=== PATIENT | female | born 1970 | race Two or more races ===

== ENCOUNTER 2019-12-20 11:31 | Emergency (ER) | payer OTHER, SELFPAY ==
[2019-12-20 11:36] VITALS: BP 110/63; PULSE 80; RESP 18; TEMP 36.8; O2SAT 99; BMI 34.0
--- NOTE | 2019-12-20 12:23 | XR_ITS ---
EXAMINATION: XR ANKLE, LEFT CLINICAL INFORMATION: Pain, swelling, difficulty ambulating COMPARISON: None TECHNIQUE: AP, lateral, and mortise views of the left ankle. FINDINGS: There appears to be a small ossification adjacent to the anterior process of the calcaneus, as seen on the lateral projection. This could represent sequela of trauma, of indeterminate age. Otherwise, no other discrete acute fracture or dislocation is seen. Ankle mortise is maintained. Alignment is anatomic. Talar dome, base of the fifth metatarsal, appears intact. Moderate plantar calcaneus spur. Small to moderate Achilles tendon insertional spurring. IMPRESSION: 1. Small ossification adjacent to the anterior process of the calcaneus, could be related to sequela of trauma, of indeterminate age. Please clinically correlate. 2. Otherwise, no discrete acute fracture is seen.
--- NOTE | 2019-12-20 12:23 | ED.EXTPRO ---
HPI - Extremity Problem General Chief complaint: Extremity Injury, Lower Stated complaint: leg pain Time Seen by Provider: 12/20/19 12:21 Source: patient Mode of arrival: ambulatory Limitations: language barrier History of Present Illness HPI Narrative: 49 y/o female with history of COPD, chronic pain on chronic opiates, neuropathy presenting with 1 week of LLE pain - she reports it starts in her ankle and travels up to her hip. She denies injury. She states she has difficulty walking. She has been taking Percocet for pain. Related Data Previous Rx's Medication Instructions Recorded cyclobenzaprine 5 mg PO TID PRN #14 tab 12/20/19 tramadol 50 mg PO Q8H PRN #10 tab 12/20/19 Allergies Allergy/AdvReac Type Severity Reaction Status Date / Time No Known Allergies Allergy Verified 12/20/19 11:38 Review of Systems Review of Systems: Constitutional: No Fever, No Chills ENT/Mouth: No sore throat, No Rhinorrhea, No Swallowing Difficulty Eyes: No Eye Pain, No Swelling, No Redness Cardiovascular: No Chest Pain, No SOB, No Orthopnea, No Edema Respiratory: No Cough, No Sputum, No Wheezing, No dyspnea Gastrointestinal: No Nausea, No Vomiting, No Diarrhea, No abdominal Pain Genitourinary: No Dysuria, No Urinary Frequency, No Hematuria Musculoskeletal: + joint pain, + Myalgias Skin: No Skin Lesions, No rash Neuro: No Weakness, No Numbness, No Dizziness, No Headache Heme/Lymph: No Bruising, No Lymphadenopathy PMFSH Past Medical History Attestation statement: The following information was validated with the patient. Medical History Asthma COPD (chronic obstructive pulmonary disease) HTN (hypertension) Social History Social History Alcohol intake: unknown Smoking Status: Unknown if ever smoked Advance Directives: No Advance Directives Information Provided: Yes Physical Exam Vital Signs: Vital Signs: Vital Signs Temp Pulse Resp BP Pulse Ox 12/20/19 11:36 98.3 F 80 18 110/63 99 Body Mass Index 34.0 Appearance: Alert. Oriented X3. No acute distress. HEENT: normal inspection CVS: Normal heart rate and rhythm. Pulses normal. Respiratory: No respiratory distress. Skin: Skin warm and dry. Normal skin color. Normal skin turgor. No rashes. Extremities: left ankle swelling medially and laterally. limited ROM. knee normal exam. lateral right thigh tenderness along IT band. pelvis stable and no hip tenderness. Neuro: Oriented X 3. No motor deficit. No sensory deficit. Course Course Course Narrative: XR shows some bone spurs which could explain her tenderness. No acute fractures seen. Will place in BOLA wrap for comfort and give short course of pain medication, she has CKD and is unable to take NSAID. Encouraged to follow up with PCP. Discharge Plan Discharge Clinical Impression: Bone spur of foot Strain of left hip and thigh Qualifiers: Encounter type: initial encounter Qualified Code(s): S76.012A - Strain of muscle, fascia and tendon of left hip, initial encounter Patient Disposition: Home, Self-Care Instructions: Arthralgia (ED), Leg Pain (ED) Additional Instructions: Weight bearing as tolerated. Rest, Ice, elevate your left leg. Use BOLA wrap for comfort and stability. Take medications as prescribed. Follow up with your Primary Care Doctor this week for further management. Prescriptions: New tramadol 50 mg tablet 50 mg PO Q8H PRN (Reason: pain) Qty: 10 RF: 0 cyclobenzaprine 5 mg tablet 5 mg PO TID PRN (Reason: muscle spasm) Qty: 14 RF: 0
== END 2019-12-20 13:50 | disposition home or self-care (01) ==
PROVIDERS: Emergency Provider Emergency Medicine; PCP Internal Medicine
DX: M77.32 Calcaneal spur, left foot (principal); S76.012A Strain of muscle, fascia and tendon of left hip, initial encounter; X58.XXXA Exposure to other specified factors, initial encounter; I10 Essential (primary) hypertension; Y93.9 Activity, unspecified; Y92.9 Unspecified place or not applicable; Y99.9 Unspecified external cause status; Z79.891 Long term (current) use of opiate analgesic
CPT/HCPCS: 73610; 99283; 99284; 99285

== ENCOUNTER 2019-12-28 10:53 | Emergency (ER) | payer OTHER, SELFPAY ==
[2019-12-28 11:30] VITALS: BP 126/69; PULSE 82; RESP 16; TEMP 37.6; O2SAT 99; BMI 33.0
--- NOTE | 2019-12-28 11:49 | CT_ITS ---
EXAMINATION: CT BRAIN WITHOUT CONTRAST. CT CERVICAL SPINE WITHOUT CONTRAST. CLINICAL INFORMATION: COMPARISON: None TECHNIQUE: 5 millimeter thin axial and reformatted 2 mm thin sagittal and coronal images of brain were obtained. 3 mm thin axial and reformatted 2 millimeters thin sagittal and coronal images of cervical spine were obtained. DLP [id number] FINDINGS: BRAIN: There is no acute intra-axial, extra-axial bleed, masses or midline shift. No acute infarction in evolution. The lateral ventricles are symmetrical in size and configuration without enlargement. The roberts to white matter differences maintained. There is dystrophic calcification bilateral basal ganglia. Bone windows reveal no calvarial abnormality. There is no scalp soft tissue abnormality. Bilateral paranasal sinuses are aerated. Moderate mucoperiosteal thickening bilateral maxillary, bilateral posterior ethmoid and sphenoid sinuses. The mastoid air cells are well-aerated. No gross bony abnormality seen. CERVICAL SPINE: There is reversal cervical lordosis. The vertebral heights, alignment and disc heights are maintained. There is mild posterior spondylosis C5-C6 disc level. No visible acute fracture, dislocation or lytic process seen. The C1-C2 disc level has mild ventral and superior spurring. The craniovertebral junction is normal. There is a focal tubular hypoechoic density seen in the right C2 foramen, likely calcification in the right vertebral artery. The prevertebral and paravertebral soft tissues are normal. The lung apices are clear. IMPRESSION: No acute intracranial process seen. No acute intracranial process seen. No acute fracture or dislocation cervical spine. Chronic pansinusitis
--- NOTE | 2019-12-28 11:49 | XR_ITS ---
EXAMINATION: XR CHEST CLINICAL INFORMATION: Cough and SOB. COMPARISON: None TECHNIQUE: 2 views of the chest were obtained. FINDINGS: The lungs are well-expanded and clear. The heart size and pulmonary vascularity is normal. No gross bony abnormality seen. The soft tissues are normal. IMPRESSION: Unremarkable chest exam.
--- NOTE | 2019-12-28 12:26 | ED.GENADULT ---
HPI - General Adult General Chief complaint: General Medical Stated complaint: HEADACHE Time Seen by Provider: 12/28/19 11:09 Source: patient Mode of arrival: ambulatory Limitations: no limitations History of Present Illness HPI narrative: 49-year-old female with a past medical history of schwannoma of neck, renal insufficiency, hypertension, COPD, asthma, arthritis and carpal tunnel syndrome presenting to the ED with multiple complaints which include headache, neck pain, body aches, chills, nausea, productive cough and shortness of breath since Thursday. Denies any recent travel or sick contacts. Denies any other symptoms complaints or concerns at this time. Related Data Previous Rx's Medication Instructions Recorded cyclobenzaprine 5 mg PO TID PRN #14 tab 12/20/19 tramadol 50 mg PO Q8H PRN #10 tab 12/20/19 Allergies Allergy/AdvReac Type Severity Reaction Status Date / Time No Known Allergies Allergy Verified 12/20/19 11:38 Review of Systems Review of Systems: Constitutional : No Fever, + Fatigue, + Malaise ENT/Mouth : No Hearing loss, No Ear Pain, No Nasal Congestion, No Sinus Pain, No Hoarseness, No sore throat, No Rhinorrhea, No Swallowing Difficulty Eyes: No Eye Pain, No Swelling, No Redness, No Foreign Body, No Discharge, No Vision Changes Cardiovascular : No Chest Pain, No Dyspnea on Exertion, No Orthopnea, No Edema, No Palpitations Respiratory : + Cough, + sputum production, No Wheezing, Gastrointestinal : + Nausea, No Vomiting, No Diarrhea, No Constipation, No abdominal Pain, No Hematochezia, No Melena Genitourinary : No Dysuria, No Urinary Frequency, No Urgency, Musculoskeletal : + joint pain, + Myalgias, No Joint Swelling Skin : No Skin Lesions, No rash Neuro : No Weakness, No Numbness, No Paresthesias, No Loss of Consciousness, No Dizziness, + Headache Heme/Lymph: No Lymphadenopathy Yes all other systems are reviewed and are negative [facility] Past Medical History Attestation statement: The following information was validated with the patient. Medical History Arthritis Asthma Carpal tunnel syndrome COPD (chronic obstructive pulmonary disease) HTN (hypertension) Renal insufficiency Schwannoma of nerve of neck Surgical History History of sleeve gastrectomy Hx of tubal ligation Family History Family History Father No problems noted. Mother Diabetes Hypertension Son No problems noted. Son No problems noted. Brother No problems noted. Brother Diabetes Sister No problems noted. Social History Social History Alcohol intake: unknown Smoking Status: Never smoker Use of substances other than those prescribed or required for medical reasons: No Advance Directives: No Advance Directives Information Provided: No Physical Exam Vital Signs: Vital Signs: Vital Signs Temp Pulse Resp BP Pulse Ox 12/28/19 11:30 99.6 F 82 16 126/69 99 Body Mass Index 33.0 vital signs have been reviewed as normal and appeared to be correct. Blood pressure normal. Heart rate normal. Respiration rate normal. Temperature normal. Oxygen saturation normal. Appearance: Alert. Oriented X3. No acute distress. Head: Normal external exam. Normocephalic. Atraumatic. No Lemus signs noted. No raccoon eyes noted Eyes: PERRLA. EOMI. Conjunctiva and sclera normal. Eyelids normal. ENT: EAC normal. TM's Normal. Pharynx normal. Uvula midline. Moist mucous membranes. No trismus noted. No drooling noted. No muffled voice noted. Neck: Normal inspection. Neck supple. FROM. No adenopathy. Thyroid Normal. No meningeal signs. No neck mass noted. CVS: Normal heart rate and rhythm. Heart sound normal. No murmurs noted. Pulses normal throughout. Respiratory: No respiratory distress. Painless inspiration. Breath sounds normal. No wheezes/rales/rhonchi noted. Chest nontender. No accessory muscle usage noted or decreased air movement noted. Abdomen: Soft and nontender. Bowel sounds normal in all 4 quadrants. No distention noted. No organomegaly noted. No visible injury noted. Back: No CVA tenderness. Full range of motion noted. Skin: Skin warm and dry. Normal skin color. Normal skin turgor. No rashes/lesions/lacerations noted. Extremities: No lower extremity edema. Extremities exhibit normal range of motion. Extremities nontender. Neuro: Oriented X 3. No motor deficit. No sensory deficit. Reflexes normal. Course Course Course Narrative: 11:50AM 49-year-old female with a past medical history of schwannoma of neck, renal insufficiency, hypertension, COPD, asthma, arthritis and carpal tunnel syndrome presenting to the ED with multiple complaints which include headache, neck pain, body aches, chills, nausea, productive cough and shortness of breath since Thursday. Denies any recent travel or sick contacts. Denies any other symptoms complaints or concerns at this time. - Plan: Labs, CT scan of brain and cervical spine, CXR, Covid-19 swab. Provide symptomatic treatment with 4 mg of Zofran, 30 mg of Toradol, 10 mg of Decadron and 50 mg of Benadryl then re-evaluate. Reevaluation(s) Reevaluation #1: patient with mild anemia. BUN and creatinine and mildly elevated although similar and improved when compared to prior. patient also given a L of fluid due to her renal function although again this is chronic And patient was requesting IV fluids as well. All other labs are within normal limits. CT scan of brain within normal limits No acute processes noted. CT scan of cervical spine within normal limits no acute processes noted. chest x-ray within normal limits no acute processes noted. Will swab the patient for influenza and COVID at this time. Patient reports she feels much better after the Zofran, Toradol, Decadron and Benadryl. Will DC home with symptomatic treatment along with instructions to return if any new or worsening symptoms to follow-up with primary care provider. Patient understands agrees with this plan. Time: 14:55 Medical Decision Making Lab Data Result diagrams: 12/28/19 13:23 12/28/19 13:23 Labs: Lab Results 12/28/19 12/28/19 12/28/19 Range/Units 13:23 13:23 13:23 WBC 4.8 (4.8-10.8) X10*3/uL RBC 4.17 L (4.20-5.50) X10*6/uL Hgb 11.1 L (12.0-16.0) g/dl Hct 36.1 L (37-47) % MCV 86.6 (80-98) fL MCH 26.6 L (27.0-33.0) pg MCHC 30.7 L (31.0-35.0) g/dl RDW 14.0 (11.0-16.0) % Plt Count 194 (160-400) X10*3/uL MPV 10.6 (9.4-12.3) fL Immature Gran % (Auto) 0.6 H (0.0-0.4) % Neut % (Auto) 63.1 (45-73) % Lymph % (Auto) 16.7 L (20-40) % [place] % (Auto) 18.2 H (2-11) % Eos % (Auto) 0.8 (0-4) % Baso % (Auto) 0.6 (0-2) % Lymph # (Auto) 0.8 L (1.2-4.9) X10*3/uL [place] # (Auto) 0.9 (0.1-1.2) X10*3/uL Eos # (Auto) 0.0 (0.0-0.4) X10*3/uL Baso # (Auto) 0.0 (0.0-0.2) X10*3/uL Abs Immat Gran (auto) 0.03 (0.00-0.03) X10*3/uL Absolute Neuts (auto) 3.0 (2.0-8.3) X10*3/uL Absolute Nucleated RBC 0.000 (0.0-0.012) X10*3/uL Nucleated RBC % (auto) 0.0 (0.0-0.2) /100WBC Hold Purple Top SEE NOTE Sodium 139 (135-145) mmol/L Potassium 4.2 (3.3-5.1) mmol/l Chloride 103 (96-108) mmol/L Carbon Dioxide 27 (22-29) mmol/L Anion Gap 13 (12-20) BUN 28 H (9-16) mg/dL Creatinine 1.62 H (0.5-1.4) mg/dL Estim Creat Clear Calc 40.0 Estimated GFR 34 Random Glucose 82 (60-115) mg/dL Calcium 9.0 (8.4-10.2) mg/dL Magnesium 1.8 (1.6-2.6) mg/dL Total Bilirubin (0.0-1.0) mg/dL Direct Bilirubin (0.0-0.5) mg/dL AST (5-31) U/L ALT (0-31) U/L Alkaline Phosphatase (39-117) U/L Total Protein (6.5-8.0) g/dL Albumin (3.5-5.0) g/dL 12/28/19 Range/Units 13:23 WBC (4.8-10.8) X10*3/uL RBC (4.20-5.50) X10*6/uL Hgb (12.0-16.0) g/dl Hct (37-47) % MCV (80-98) fL MCH (27.0-33.0) pg MCHC (31.0-35.0) g/dl RDW (11.0-16.0) % Plt Count (160-400) X10*3/uL MPV (9.4-12.3) fL Immature Gran % (Auto) (0.0-0.4) % Neut % (Auto) (45-73) % Lymph % (Auto) (20-40) % [place] % (Auto) (2-11) % Eos % (Auto) (0-4) % Baso % (Auto) (0-2) % Lymph # (Auto) (1.2-4.9) X10*3/uL [place] # (Auto) (0.1-1.2) X10*3/uL Eos # (Auto) (0.0-0.4) X10*3/uL Baso # (Auto) (0.0-0.2) X10*3/uL Abs Immat Gran (auto) (0.00-0.03) X10*3/uL Absolute Neuts (auto) (2.0-8.3) X10*3/uL Absolute Nucleated RBC (0.0-0.012) X10*3/uL Nucleated RBC % (auto) (0.0-0.2) /100WBC Hold Purple Top Sodium (135-145) mmol/L Potassium (3.3-5.1) mmol/l Chloride (96-108) mmol/L Carbon Dioxide (22-29) mmol/L Anion Gap (12-20) BUN (9-16) mg/dL Creatinine (0.5-1.4) mg/dL Estim Creat Clear Calc Estimated GFR Random Glucose (60-115) mg/dL Calcium (8.4-10.2) mg/dL Magnesium (1.6-2.6) mg/dL Total Bilirubin 0.2 (0.0-1.0) mg/dL Direct Bilirubin < 0.2 (0.0-0.5) mg/dL AST 19 (5-31) U/L ALT 10 (0-31) U/L Alkaline Phosphatase 68 (39-117) U/L Total Protein 6.4 L (6.5-8.0) g/dL Albumin 3.8 (3.5-5.0) g/dL Imaging Data Chest x-ray: Attestation: I personally reviewed and interpreted this imaging study as follows: Radiologist's impression: FINDINGS: The lungs are well-expanded and clear. The heart size and pulmonary vascularity is normal. No gross bony abnormality seen. The soft tissues are normal. IMPRESSION: Unremarkable chest exam. ct scan brain/cervical spine : Attestation: I personally reviewed and interpreted this imaging study as follows: Radiologist's impression: IMPRESSION: No acute intracranial process seen. No acute intracranial process seen. No acute fracture or dislocation cervical spine. Chronic pansinusitis Discharge Plan Discharge Clinical Impression: Muscle strain, Acute viral syndrome Headache Qualifiers: Headache type: unspecified Headache chronicity pattern: acute headache Intractability: not intractable Qualified Code(s): R51.9 - Headache, unspecified Patient Disposition: Home, Self-Care Instructions: Acute Headache (ED), Viral Syndrome (ED), COVID-19 (Coronavirus Disease 2019) (ED) Additional Instructions: Bas?ndonos en nancy s?ntomas e historia, hemos enviado un COVID-19. Aunque luong resultado es PENDIENTE en solitario momento. LOS RESULTADOS deben regresar en un plazo de 72 horas. En solitario momento se le contactar? con resultados NEGATIVOS O POSITIVOS. -Por favor, espere hasta que nos pongamos en contacto con usted para nancy resultados. En solitario momento usted estar? benji para el glenna. Por favor, planifique la cuarentena autom?minesh por un m?ximo de 14 d?as. No te expongas a los dem?s. No puedes ir a trabajar. Si las pruebas vuelven negativas, puede volver a las actividades siempre y cuando ya no tenga s?ntomas payton al menos 3 d?as. Por favor, siga las instrucciones en fr?o y l?vese las violetta con frecuencia. Puede phi Tylenol seg?n las instrucciones del biber?n para el dolor o la fiebre. Paciente atendido en el servicio de urgencias el 12/28/2019 y debe ser eximido del trabajo hasta los resultados negativos de la prueba Y hasta que hayan pasado 72 horas sin s?ntomas Y hayan pasado al menos 10 d?as desde que aparecieron los s?ntomas por primera vez o desde la ?ltima exposici?n al paciente positivo COVID-19 Directrices de los CDC para el aislamiento en el hogar: - Mant?ngase alejado de los dem?s - USAR YUE MASCARA si usted est? enfermo Y ESTANCIA HOGAR - C?brase la boca y la nariz con un pa?uelo de papel al toser o estornudar. Deseche los pa?uelos en yue papelera forrada y l?vese las violetta inmediatamente con agua y jab?n payton al menos 20 segundos. Si no hay agua y jab?n disponibles, limpie las violetta con desinfectante de violetta a base de alcohol que contenga al menos 60% de alcohol. - L?mpiarse las violetta a menudo con agua y jab?n payton al menos 20 segundos - Evite tocarse los ojos, la nariz y la boca con las violetta sin kavon - No comparta platos, vasos, tazas, utensilios para comer, toallas o ropa de cama con otras personas en luong hogar. Despu?s de usar estos art?culos, l?velos benji con agua y jab?n o p?ngalos en el lavavajillas. - Limpie las superficies de alto contacto en luong ?arlene de aislamiento ( habitaci?n de enfermos y ba?o) todos los d?as; permitir que el cuidador limpie y desinfecte las superficies de alto contacto en otras ?reas del hogar. Limpie el ?arlene o el art?culo con agua y jab?n u otro detergente si est? sucio. Luego, usa un desinfectante dom?stico. - Limitar el contacto con mascotas y animales: Si debe cuidar de yue mascota, l?vese las violetta antes y despu?s de interactuar con ellos). Based on your symptoms and history we have sent a COVID-19. Although your RESULT IS PENDING at this time. RESULTS should return within 72 hours. At this time you will be contacted with either NEGATIVE OR POSITIVE results. -Please wait until we contact you for your results. At this time you will be okay for discharge. Please plan for self quarantine for up to 14 days. Do not expose yourself to others. You may not go to work. If testing does come back negative you may return to activities as long as you are no longer having any symptoms for at least 3 days. Please continue to follow cold instructions and wash your hands frequently. You may take Tylenol as directed on the bottle for pain or fever. Patient seen in the emergency department on 12/28/2019 and should be excused from work until negative test results AND until 72 hours without any symptoms AND at least 10 days have passed since symptoms first appeared or since last exposure to COVID-19 positive patient CDC Guidelines for home isolation: - Stay away from others - WEAR A MASK if you are sick AND STAY HOME - Cover your mouth and nose with a tissue when you cough or sneeze. Dispose of tissues in a lined trash can and wash your hands immediately with soap and water for at least 20 seconds. If soap and water are not available, clean hands with alcohol-based hand apple turner that contains at least 60% alcohol. - Clean your hands often with soap and water for at least 20 seconds - Avoid touching your eyes, nose and mouth with unwashed hands - Do not share dishes, drinking glasses, cups, eating utensils, towels, or bedding with other people in your home. After using these items, wash them thoroughly with soap and water or put in the printed circuit board panels deburrer. - Clean high-touch surfaces in your isolation area ( sick room and bathroom) every day; let a caregiver clean and disinfect high-touch surfaces in other areas of the home. Clean the area or item with soap and water or another detergent if it is dirty. Then, use a household disinfectant. - Limit contact with pets and animals: If you must care for a pet, wash your hands before and after interacting with them). Prescriptions: No Action tramadol 50 mg tablet 50 mg PO Q8H PRN (Reason: pain) Qty: 10 RF: 0 cyclobenzaprine 5 mg tablet 5 mg PO TID PRN (Reason: muscle spasm) Qty: 14 RF: 0 Referrals: Diane Duff MD [Primary Care Provider] - 2 days Print Language: Mohawk
[2019-12-28] MEDS: Ketorolac Tromethamine 30 MG/ML VIAL IVPUSH (13:29)
[2019-12-28 13:30] LABS: MANUAL DIFF FLAG NO
[2019-12-28] MEDS: diphenhydrAMINE HCL 50 MG/ML VIAL IVPUSH (13:31)
[2019-12-28] MEDS: ondansetron HCL 4 MG/2 ML VIAL IVPUSH (13:31)
[2019-12-28 13:32] LABS: Basophils Percent Auto 0.6 % (0-2); Eosinophils Percent Auto 0.8 % (0-4); Hematocrit 36.1 % (37-47); Hemoglobin 11.1 g/dl (12.0-16.0); Imm Gran Abs Auto 0.03 X10*3/uL (0.00-0.03); Imm Gran Pct Auto 0.6 % (0.0-0.4); Lymphocytes Absolute Auto 0.8 X10*3/uL (1.2-4.9); Lymphocytes Percent Auto 16.7 % (20-40); Mean Corpuscular HGB Conc 30.7 g/dl (31.0-35.0); Mean Corpuscular Hemoglobin 26.6 pg (27.0-33.0); Mean Corpuscular Volume 86.6 fL (80-98); Mean Platelet Volume 10.6 fL (9.4-12.3); Monocytes Absolute Auto 0.9 X10*3/uL (0.1-1.2); Monocytes Percent Auto 18.2 % (2-11); Neutrophils Percent Auto 63.1 % (45-73); Platelet Count 194 X10*3/uL (160-400); Red Blood Count 4.17 X10*6/uL (4.20-5.50); White Blood Count 4.8 X10*3/uL (4.8-10.8)
[2019-12-28 13:51] LABS: Anion Gap 13 (12-20); Blood Urea Nitrogen 28 mg/dL (9-16); Carbon Dioxide 27 mmol/L (22-29); Chloride 103 mmol/L (96-108); Estimated Glomerular Filt Rate 34; Glucose Random 82 mg/dL (60-115); Magnesium 1.8 mg/dL (1.6-2.6); Potassium 4.2 mmol/l (3.3-5.1); Sodium 139 mmol/L (135-145)
[2019-12-28 13:52] LABS: Alanine Aminotransferase 10 U/L (0-31); Albumin Level 3.8 g/dL (3.5-5.0); Alkaline Phosphatase 68 U/L (39-117); Aspartate Amino Transferase 19 U/L (5-31); Bilirubin Direct < 0.2 mg/dL (0.0-0.5); Bilirubin Total 0.2 mg/dL (0.0-1.0); Total Protein 6.4 g/dL (6.5-8.0)
[2019-12-28] MEDS: 0.9 % Sodium Chloride 1,000 ML 999 ML IV (14:40)
[2019-12-28 15:04] VITALS: BP 92/47; PULSE 67; RESP 16; TEMP 37.4; O2SAT 97
[2019-12-28] MEDS: dexAMETHasone 2 MG TABLET 10 MG PO (15:39)
[2019-12-28 16:15] LABS: Influenza A PCR NEGATIVE (Negative); Influenza B PCR NEGATIVE (Negative)
[2019-12-28 16:17] LABS: Resp Syncy Virus RNA Qual PCR NEGATIVE (Negative)
[2019-12-28 16:47] VITALS: BP 105/57; PULSE 65; RESP 18; TEMP 37.3; O2SAT 100
== END 2019-12-28 17:11 | disposition home or self-care (01) ==
PROVIDERS: Physician Assistant Medical; Emergency Provider Emergency Medicine; PCP Internal Medicine
DX: B34.9 Viral infection, unspecified (principal); Z20.828 Contact with and (suspected) exposure to other viral communicable diseases; S16.1XXA Strain of muscle, fascia and tendon at neck level, initial encounter; I10 Essential (primary) hypertension; J45.909 Unspecified asthma, uncomplicated; X58.XXXA Exposure to other specified factors, initial encounter; Y93.9 Activity, unspecified; Y92.9 Unspecified place or not applicable; Y99.9 Unspecified external cause status
CPT/HCPCS: 36415; 70450; 71046; 72125; 80048; 80076; 83735; 85025; 87631; 87635; 96361; 96374; 96375; 99284; J1200; J1885; J2405; J8540

== ENCOUNTER → 2019-12-29 07:57 | Outpatient (BNVA) | payer OTHER, SELFPAY | PROVIDERS: PCP Internal Medicine; Visit Provider Physician Assistant | DX: E66.9 Obesity, unspecified (principal); Z68.35 Body mass index [BMI] 35.0-35.9, adult; Z98.84 Bariatric surgery status | CPT/HCPCS: 99214 ==

== ENCOUNTER → 2020-01-30 08:28 | Outpatient (BNVA) | payer OTHER, SELFPAY | PROVIDERS: Visit Provider Dietitian, Registered | DX: Z76.89 Persons encountering health services in other specified circumstances (principal) ==

== ENCOUNTER 2020-03-05 15:38 | Outpatient (REF) | payer OTHER, SELFPAY | END 2020-03-05 15:39 | disposition home or self-care (01) | LOC: HO.LAB 15:38 | PROVIDERS: PCP Internal Medicine; Visit Provider Internal Medicine | DX: Z20.828 Contact with and (suspected) exposure to other viral communicable diseases (principal) | CPT/HCPCS: C9803; U0003 ==

== ENCOUNTER 2020-03-15 11:16 | Outpatient (REF) | payer OTHER, SELFPAY ==
[2020-03-15 12:05] LABS: MANUAL DIFF FLAG NO
[2020-03-15 12:15] LABS: Basophils Percent Auto 0.8 % (0-2); Eosinophils Absolute Auto 0.2 X10*3/uL (0.0-0.4); Eosinophils Percent Auto 2.9 % (0-4); Hematocrit 36.6 % (37-47); Imm Gran Abs Auto 0.02 X10*3/uL (0.00-0.03); Imm Gran Pct Auto 0.4 % (0.0-0.4); Lymphocytes Absolute Auto 1.8 X10*3/uL (1.2-4.9); Lymphocytes Percent Auto 35.1 % (20-40); Mean Corpuscular HGB Conc 30.1 g/dl (31.0-35.0); Mean Corpuscular Hemoglobin 26.3 pg (27.0-33.0); Mean Corpuscular Volume 87.4 fL (80-98); Mean Platelet Volume 10.9 fL (9.4-12.3); Monocytes Absolute Auto 0.5 X10*3/uL (0.1-1.2); Monocytes Percent Auto 9.4 % (2-11); Neutrophils Absolute Auto 2.7 X10*3/uL (2.0-8.3); Neutrophils Percent Auto 51.4 % (45-73); Platelet Count 243 X10*3/uL (160-400); Red Blood Count 4.19 X10*6/uL (4.20-5.50); Red Cell Distribution Width 15.7 % (11.0-16.0); White Blood Count 5.2 X10*3/uL (4.8-10.8)
[2020-03-15 12:50] LABS: Anion Gap 13 (12-20); Blood Urea Nitrogen 37 mg/dL (9-16); Calcium 9.4 mg/dL (8.4-10.2); Carbon Dioxide 28 mmol/L (22-29); Chloride 108 mmol/L (96-108); Estimated Glomerular Filt Rate 36; Phosphorus 4.6 mg/dL (2.7-4.5); Potassium 4.5 mmol/l (3.3-5.1); Sodium 144 mmol/L (135-145)
[2020-03-15 13:07] LABS: Glucose Urine UA NEG (NEG); Leukocyte Esterase Urine NEG (NEG); Nitrite Urine NEG (NEG); PH 5.5 (5.0-8.0); Specific Gravity - Urine 1.025 (1.005-1.025); Urine Blood NEG (NEG); Urine Ketones NEG (NEG); Urine Protein NEG (NEG-TRACE)
[2020-03-15 13:08] LABS: Appearance Urine HAZY; Color Urine YELLOW
[2020-03-15 13:11] LABS: Vitamin D 25-OH Total 17.5 ng/mL (>30)
[2020-03-15 13:32] LABS: Renal w Reflex Lab Use Only Order verified
[2020-03-15 13:58] LABS: Creatinine Urine 82.68 mg/dL; Total Protein Urine Random < 7 mg/dL (<12)
[2020-03-15 14:33] LABS: Creatinine Urine 81.23 mg/dL; Microalbum/Creatinine Ratio Ur 29.5 ug/mg cr
[2020-03-16 18:47] LABS: Calcium (PTHI) 9.6 mg/dL (8.6-10.4); PTHI 74 pg/mL (14-64)
== END 2020-03-15 11:17 | disposition home or self-care (01) ==
LOC: HO.LAB 11:16
PROVIDERS: Internal Medicine; PCP Internal Medicine; Visit Provider Internal Medicine Nephrology
DX: D36.11 Benign neoplasm of peripheral nerves and autonomic nervous system of face, head, and neck (principal); N28.9 Disorder of kidney and ureter, unspecified; M19.90 Unspecified osteoarthritis, unspecified site; E66.9 Obesity, unspecified; I10 Essential (primary) hypertension; J44.9 Chronic obstructive pulmonary disease, unspecified; J45.909 Unspecified asthma, uncomplicated; Z79.899 Other long term (current) drug therapy
CPT/HCPCS: 36415; 80051; 81003; 82040; 82043; 82306; 82310; 82565; 83735; 83970; 84100; 84156; 84520; 85025

== ENCOUNTER → 2020-03-21 08:15 | Outpatient (BNVA) | payer OTHER, SELFPAY | PROVIDERS: PCP Internal Medicine; Visit Provider Physician Assistant | DX: E66.9 Obesity, unspecified (principal); Z90.3 Acquired absence of stomach [part of] | CPT/HCPCS: Q3014 ==

== ENCOUNTER → 2020-04-25 08:16 | Outpatient (BNVA) | payer OTHER, SELFPAY | PROVIDERS: PCP Internal Medicine; Visit Provider Physician Assistant ==

== ENCOUNTER → 2020-04-30 12:37 | Outpatient (BNVA) | payer OTHER, SELFPAY | PROVIDERS: PCP Internal Medicine; Visit Provider Physician Assistant | CPT/HCPCS: Q3014 ==

== ENCOUNTER → 2020-05-14 14:56 | Outpatient (BNVA) | payer OTHER, SELFPAY | PROVIDERS: PCP Internal Medicine; Visit Provider Internal Medicine | DX: J45.909 Unspecified asthma, uncomplicated (principal); R05 Cough; Z79.51 Long term (current) use of inhaled steroids | CPT/HCPCS: 99212 ==

== ENCOUNTER 2020-05-17 15:17 | Emergency (ER) | payer OTHER, SELFPAY ==
--- NOTE | ~2020-05-17 | XR_ITS ---
EXAMINATION: XR ANKLE, RIGHT XR FOOT, LEFT CLINICAL INFORMATION: Fall. COMPARISON: Left ankle 12/20/2019, right foot radiographs performed same day. TECHNIQUE: Right ankle 3 views, left foot 3 views. FINDINGS: RIGHT ANKLE: No radiographic evidence of acute fracture subluxation. No significant degenerative changes. No ankle joint effusion. Calcaneal enthesophyte again appreciated. LEFT FOOT: No radiographic evidence of acute fracture subluxation. No ankle joint effusion. No radiopaque foreign bodies. Calcaneal spurs. XR/XR foot LT min 3V IMPRESSION: No radiographic evidence of acute fracture subluxation involving the right ankle or left foot.
--- NOTE | ~2020-05-17 | XR_ITS ---
EXAMINATION: XR FOOT, RIGHT CLINICAL INFORMATION: Fall, trauma, pain COMPARISON: None TECHNIQUE: AP, lateral, and oblique views of the right foot. FINDINGS: There is no fracture or dislocation or destructive process. There are bulky posterior and plantar calcaneal spurs. The retrocalcaneal recess is preserved. The subtalar joint is unremarkable. There is no joint narrowing or erosive changes. Normal bony mineralization. XR/XR foot RT min 3V IMPRESSION: 1. No fracture or dislocation. 2. Posterior and plantar calcaneal spurs.
--- NOTE | ~2020-05-17 | US_ITS ---
EXAMINATION: US LOWER EXTREMITY, RIGHT CLINICAL INFORMATION: Tender lump in the area of the Achilles tendon. COMPARISON: Plain film radiographs the same day. TECHNIQUE: Linear ultrasound was used to examine the area of the Achilles tendon. FINDINGS: An area of echogenic shadowing, probably calcification, is seen near the distal Achilles tendon, 5 cm deep to the skin. This may merely represent the enthesophyte seen on plain film radiography. A tiny amount of fluid is present adjacent to this. US/US extremity nonvascular IMPRESSION: Small amount of fluid and calcification is seen in the distal Achilles tendon. If further evaluation is needed for any reason, MRI would be the examination of choice.
--- NOTE | ~2020-05-17 | XR_ITS ---
EXAMINATION: XR ANKLE, RIGHT XR FOOT, LEFT CLINICAL INFORMATION: Fall. COMPARISON: Left ankle 12/20/2019, right foot radiographs performed same day. TECHNIQUE: Right ankle 3 views, left foot 3 views. FINDINGS: RIGHT ANKLE: No radiographic evidence of acute fracture subluxation. No significant degenerative changes. No ankle joint effusion. Calcaneal enthesophyte again appreciated. LEFT FOOT: No radiographic evidence of acute fracture subluxation. No ankle joint effusion. No radiopaque foreign bodies. Calcaneal spurs. XR/XR ankle RT 2V IMPRESSION: No radiographic evidence of acute fracture subluxation involving the right ankle or left foot.
[2020-05-17 15:26] VITALS: BP 133/84; PULSE 68; RESP 16; TEMP 36.6; O2SAT 99; BMI 34.0
[2020-05-17 20:00] VITALS: BP 115/67; PULSE 72; RESP 16; O2SAT 97
[2020-05-17] MEDS: Acetaminophen 325 MG TABLET 650 MG PO (20:31)
--- NOTE | 2020-05-17 21:01 | ED.LOWEXIN ---
HPI - Extremity Injury (Lower) General Chief Complaint: Extremity Injury, Lower Stated Complaint: Fall Time Seen by Provider: 05/17/20 18:06 Source: patient Mode of arrival: ambulatory History of Present Illness HPI Narrative: 50 year old female With a past medical history of arthritis, asthma, COPD, hypertension, obesity, renal insufficiency presenting to the ED complaining of bilateral foot pain and right heel pain s/p mechanical slip and fall 3 days ago. Reports was standing on a small step ladder fixing her and fell on side, landing on top of feet. Denies head trauma or LOC. Denies numbness, tingling, weakness, fever, chills MD complaint: ankle injury, foot injury and fall Related Data Home Medications Medication Instructions Recorded Confirmed gabapentin 300 mg capsule 300 mg PO TID 12/29/19 04/30/20 hydrochlorothiazide 25 mg tablet 25 mg PO DAILY 12/29/19 04/30/20 ipratropium 20 mcg-albuterol 100 1 puff INHALATION QID 12/29/19 04/30/20 mcg/actuation mist for inhalation lisinopril 5 mg tablet 5 mg PO DAILY 12/29/19 04/30/20 loratadine 10 mg tablet 10 mg PO DAILY 12/29/19 04/30/20 montelukast 10 mg tablet 10 mg PO DAILY 12/29/19 04/30/20 oxybutynin chloride 10 mg 10 mg PO DAILY 12/29/19 04/30/20 tablet,extended release 24 hr hydroxyzine HCl 25 mg tablet 25 mg PO BID PRN 03/21/20 04/30/20 albuterol sulfate 0.63 mg/3 mL 0.63 mg INHALATION Q4-6H PRN 05/14/20 solution for nebulization fluticasone propionate 50 2 spray INTRANASAL DAILY 05/14/20 mcg/actuation nasal spray,suspension naloxone 4 mg/actuation nasal spray 1 spray INTRANASAL ONCE PRN 05/14/20 oxycodone-acetaminophen 10 mg-325 1 tab PO Q8H PRN 05/14/20 mg tablet Previous Rx's Medication Instructions Recorded cyclobenzaprine 10 mg PO TID PRN #10 tab 12/28/19 ondansetron HCl [Zofran] 4 mg PO Q6H PRN #10 tab 12/28/19 cholecalciferol (vitamin D3) 50 50 mcg PO DAILY #90 cap 01/23/20 mcg (2,000 unit) capsule bisacodyl 5 mg tablet,delayed 10 mg PO ONCE 1 Days #2 tab 04/30/20 release docusate sodium 100 mg capsule 200 mg PO BEDTIME #60 cap 04/30/20 polyethylene glycol 3350 17 238 g PO ONCE 1 Days #238 g 04/30/20 gram/dose oral powder Allergies Allergy/AdvReac Type Severity Reaction Status Date / Time No Known Allergies Allergy Verified 05/14/20 15:12 Review of Systems Review of Systems: Constitutional: No Fever, No Chillsin Musculoskeletal: + joint pain, No Myalgias, + Joint Swelling Skin: No Skin Lesions, No rash Neuro: No Weakness, No Numbness, No Paresthesias, no head trauma, no LOC Yes all other systems are reviewed and are negative [facility] Past Medical History Attestation statement: The following information was validated with the patient. Medical History (Updated 05/17/20 @ 21:10 by JOSE ROBERTO Mccallum) Arthritis Asthma Carpal tunnel syndrome COPD (chronic obstructive pulmonary disease) Cough Family history of colon cancer in father HTN (hypertension) Obesity Renal insufficiency Schwannoma of nerve of neck Surgical History History of sleeve gastrectomy Hx of tubal ligation Family History Family History Father No problems noted. Mother Diabetes Hypertension Son No problems noted. Son No problems noted. Brother No problems noted. Brother Diabetes Sister No problems noted. Social History Social History Household Members: Spouse Alcohol intake: current Alcohol type: wine Smoking Status: Never smoker Advance Directives: No Advance Directives Information Provided: No Current occupational status: disabled Physical Exam Vital Signs: Vital Signs: Last Vital Signs Temp 98 F 05/17/20 15:26 Pulse 72 05/17/20 20:00 Resp 16 05/17/20 20:00 BP 115/67 05/17/20 20:00 Pulse Ox 97 05/17/20 20:00 Body Mass Index 34.0 Const: General: cooperative, healthy appearing and comfortable Orientation/consciousness: patient oriented x3 Limitations: no limitations HENMT: Head: Yes normal to inspection and Yes atraumatic Ears: hearing grossly normal bilaterally General nose exam: Normal external nose present Face and sinus: Yes normal facial exam Eyes: General: appearance normal, both eyes and all related structures EOM: EOMs intact bilaterally Neck: Neck: Yes normal visual inspection Resp: Effort & Inspection: normal respiratory effort Cardio: Peripheral pulses: dorsalis pedis present Skin: Rashes: no rashes Wounds: no wounds Neuro: General: patient oriented x3, tone normal and moves all extremities Extrem: Other: Right heel with small lump that is tender to palpation. No fluctuance/induration. No cellulitis Bilateral feet with tenderness to palpation. No appreciable deformity. Right ankle and mild swelling. No right calf tenderness. ROM intact. Right-sided Hopper test not consistent with Achilles tendon rupture Neurovascular intact distally bilaterally. Sensation intact to light touch. General: Yes normal to inspection Course Course Course Narrative: XR foot LT min 3V IMPRESSION: No radiographic evidence of acute fracture subluxation involving the right ankle or left foot. XR foot RT min 3V IMPRESSION: 1. No fracture or dislocation. 2. Posterior and plantar calcaneal spurs. US extremity nonvascular IMPRESSION: Small amount of fluid and calcification is seen in the distal Achilles tendon. If further evaluation is needed for any reason, MRI would be the examination of choice. MDM - Extremity Injury (Lower) MDM Narrative Medical decision making narrative: On exam VSS, NAD/well-appearing. Physical exam as above. Concern for arthralgia/sprain/tear. Rule out fracture. Lower concern for Achilles rupture/tear with negative Hopper test No evidence of active infection Plan: X-rays, Achilles tendon ultrasound Discharge Plan Discharge Clinical Impression: Arthralgia, Foot pain, bilateral Patient Disposition: Home, Self-Care Instructions: Arthralgia (ED) Additional Instructions: Your x-ray did not show any acute fractures or dislocations. You do have calcaneus to person her right foot. The ultrasound showed a small amount Of fluid at the distal end of her Achilles. This is likely calcification, or could be reactive from her injury. It is important that you ice and elevate her foot. Take Tylenol and Motrin at home for pain/swelling. Follow up with her doctor and Orthopedics as needed. If pain persists or worsens, he foot begins look infected, you have weakness return to the ED [place] radiograf?a no mostr? fracturas o dislocaciones agudas. Tienes calc?jerry para colocar austin pie derecho. La ecograf?a mostr? yue layton?a cantidad de l?quido en el extremo distal de austin Wilver. Es probable que se trate de yue calcificaci?n o podr?a ser yue reacci?n a [place]in lesi?n. Es importante que le pongas hielo y le eleves el pie. [place] Tylenol y Motrin en casa para el dolor o la hinchaz?n. Aydin un seguimiento con austin m?dico y ortopedia seg?n sea necesario. Si el dolor persiste o empeora, el pie comienza a verse infectado, tiene debilidad regresa al servicio de urgencias Prescriptions: No Action cholecalciferol (vitamin D3) 50 mcg (2,000 unit) capsule 50 mcg PO DAILY Qty: 90 RF: 3 ondansetron HCl [Zofran] 4 mg tablet 4 mg PO Q6H PRN (Reason: nausea and vomiting) Qty: 10 RF: 0 cyclobenzaprine 10 mg tablet 10 mg PO TID PRN (Reason: muscle spasm) Qty: 10 RF: 0 hydroxyzine HCl 25 mg tablet 25 mg PO BID PRNRF: 0 bisacodyl [Dulcolax (bisacodyl)] 5 mg tablet,delayed release (DR/EC) 10 mg PO ONCE 1 Days Qty: 2 RF: 0 polyethylene glycol 3350 [Miralax] 17 gram/dose powder 238 g PO ONCE 1 Days Qty: 238 RF: 0 docusate sodium [Colace] 100 mg capsule 200 mg PO BEDTIME Qty: 60 RF: 5 gabapentin 300 mg capsule 300 mg PO TID RF: 0 hydrochlorothiazide 25 mg tablet 25 mg PO DAILY RF: 0 Combivent Respimat 20-100 mcg/actuation mist 1 puff inhalation QID RF: 0 lisinopril 5 mg tablet 5 mg PO DAILY RF: 0 loratadine 10 mg tablet 10 mg PO DAILY RF: 0 montelukast 10 mg tablet 10 mg PO DAILY RF: 0 oxybutynin chloride 10 mg tablet extended release 24hr 10 mg PO DAILY RF: 0 fluticasone propionate 50 mcg/actuation spray,suspension 2 spray intranasal DAILY RF: 0 oxycodone-acetaminophen 10-325 mg tablet 1 tab PO Q8H PRNRF: 0 Narcan 4 mg/actuation spray,non-aerosol 1 spray intranasal ONCE PRNRF: 0 albuterol sulfate 0.63 mg/3 mL solution for nebulization 0.63 mg inhalation Q4-6H PRNRF: 0 Referrals: Ollie Solitario MD [Physician] - 1 week Print Language: Malaysian
== END 2020-05-17 21:55 | disposition home or self-care (01) ==
PROVIDERS: Emergency Provider Emergency Medicine; PCP Internal Medicine
DX: M25.572 Pain in left ankle and joints of left foot (principal); M25.571 Pain in right ankle and joints of right foot; I10 Essential (primary) hypertension; Z79.899 Other long term (current) drug therapy
CPT/HCPCS: 73600; 73630; 76882; 99284

== ENCOUNTER → 2020-05-30 12:20 | Outpatient (BNVA) | payer OTHER, SELFPAY | PROVIDERS: PCP Internal Medicine; Visit Provider Physician Assistant | DX: M76.61 Achilles tendinitis, right leg (principal) | CPT/HCPCS: 99202 ==

== ENCOUNTER 2020-05-31 07:59 | Day surgery (SDC) | payer OTHER, SELFPAY ==
[2020-05-25 13:39] VITALS: BMI 36.2
--- NOTE | 2020-05-30 11:36 | P.CONAN_ITS ---
Documented by User: Monserrat Delicia 05/30/20 11:38 HPI - Anesthesia Eval Consult details Narrative: 50yo F for Colonoscopy Pulmo cleared PMFSH Active Problems Active Problems: All Active Problems (Updated 05/18/20 @ 00:01 by Delicia Jeffries) Encounter for screening colonoscopy (Acute) Cough (Acute) Obesity (Acute) Hx of tubal ligation (Acute) History of sleeve gastrectomy (Acute) Schwannoma of nerve of neck (Acute) Renal insufficiency (Acute) HTN (hypertension) (Acute) COPD (chronic obstructive pulmonary disease) (Acute) Carpal tunnel syndrome (Acute) Asthma (Acute) Arthritis (Acute) Past Medical History Medical History Arthritis Asthma Carpal tunnel syndrome COPD (chronic obstructive pulmonary disease) Cough Family history of colon cancer in father HTN (hypertension) Obesity Renal insufficiency Schwannoma of nerve of neck Family History Family History Father No problems noted. Mother Diabetes Hypertension Son No problems noted. Son No problems noted. Brother No problems noted. Brother Diabetes Sister No problems noted. Surgical History Surgical History History of esophagogastroduodenoscopy (EGD) History of sleeve gastrectomy Hx of tubal ligation Social History Social History (Updated 05/31/20 @ 08:40 by aHily Mcneil) Household Members: Spouse Alcohol intake: current Alcohol type: wine Smoking Status: Former smoker Advance Directives Information Provided: No Current occupational status: disabled Meds Allergies Allergy/AdvReac Type Severity Reaction Status Date / Time No Known Allergies Allergy Verified 05/30/20 12:38 Home Medications Medication Instructions Recorded Confirmed Last Taken Type gabapentin 300 mg capsule 300 mg PO TID 12/29/19 05/25/20 Unknown History hydrochlorothiazide 25 mg tablet 25 mg PO DAILY 12/29/19 05/25/20 Unknown History ipratropium 20 mcg-albuterol 100 1 puff INHALATION QID 12/29/19 05/25/20 Unknown History mcg/actuation mist for inhalation lisinopril 5 mg tablet 5 mg PO DAILY 12/29/19 05/25/20 Unknown History loratadine 10 mg tablet 10 mg PO DAILY 12/29/19 05/25/20 Unknown History montelukast 10 mg tablet 10 mg PO DAILY 12/29/19 05/25/20 Unknown History oxybutynin chloride 10 mg 10 mg PO DAILY 12/29/19 04/30/20 Unknown History tablet,extended release 24 hr hydroxyzine HCl 25 mg tablet 25 mg PO BID PRN 03/21/20 05/25/20 Unknown History albuterol sulfate 0.63 mg/3 mL 0.63 mg INHALATION Q4-6H PRN 05/14/20 05/25/20 Unknown History solution for nebulization fluticasone propionate 50 2 spray INTRANASAL DAILY 05/14/20 05/25/20 Unknown History mcg/actuation nasal spray,suspension naloxone 4 mg/actuation nasal spray 1 spray INTRANASAL ONCE PRN 05/14/20 Unknown History oxycodone-acetaminophen 10 mg-325 1 tab PO Q8H PRN 05/14/20 05/25/20 Unknown History mg tablet Exam Exam Date and Time: May 30, 2020 1136 Height,Weight and Vital Signs: Height 5 ft 1 in Weight 87 kg Pertinent Lab Results Pertinent Lab Results: Laboratory Tests 03/15/20 03/15/20 11:50 11:50 WBC 5.2 Hgb 11.0 L Hct 36.6 L Plt Count 243 D Sodium 144 Potassium 4.5 Chloride 108 Carbon Dioxide 28 BUN 37 H Creatinine 1.51 H Assessment and Plan Assessment Anesthesia Assessment: Chart Reviewed Documented by User: Haily Anti 05/31/20 08:41 [facility] Past Medical History Medical History Arthritis Asthma Carpal tunnel syndrome COPD (chronic obstructive pulmonary disease) Cough Family history of colon cancer in father HTN (hypertension) Obesity Renal insufficiency Schwannoma of nerve of neck Family History Family History Father No problems noted. Mother Diabetes Hypertension Son No problems noted. Son No problems noted. Brother No problems noted. Brother Diabetes Sister No problems noted. Surgical History Surgical History History of esophagogastroduodenoscopy (EGD) History of sleeve gastrectomy Hx of tubal ligation Social History Social History (Updated 05/31/20 @ 08:40 by Haily Mcneil) Household Members: Spouse Alcohol intake: current Alcohol type: wine Smoking Status: Former smoker Advance Directives Information Provided: No Current occupational status: disabled Meds Allergies Allergy/AdvReac Type Severity Reaction Status Date / Time No Known Allergies Allergy Verified 05/30/20 12:38 Home Medications Medication Instructions Recorded Confirmed Last Taken Type gabapentin 300 mg capsule 300 mg PO TID 12/29/19 05/25/20 Unknown History hydrochlorothiazide 25 mg tablet 25 mg PO DAILY 12/29/19 05/25/20 Unknown History ipratropium 20 mcg-albuterol 100 1 puff INHALATION QID 12/29/19 05/25/20 Unknown History mcg/actuation mist for inhalation lisinopril 5 mg tablet 5 mg PO DAILY 12/29/19 05/25/20 Unknown History loratadine 10 mg tablet 10 mg PO DAILY 12/29/19 05/25/20 Unknown History montelukast 10 mg tablet 10 mg PO DAILY 12/29/19 05/25/20 Unknown History oxybutynin chloride 10 mg 10 mg PO DAILY 12/29/19 04/30/20 Unknown History tablet,extended release 24 hr hydroxyzine HCl 25 mg tablet 25 mg PO BID PRN 03/21/20 05/25/20 Unknown History albuterol sulfate 0.63 mg/3 mL 0.63 mg INHALATION Q4-6H PRN 05/14/20 05/25/20 Unknown History solution for nebulization fluticasone propionate 50 2 spray INTRANASAL DAILY 05/14/20 05/25/20 Unknown History mcg/actuation nasal spray,suspension naloxone 4 mg/actuation nasal spray 1 spray INTRANASAL ONCE PRN 05/14/20 Unknown History oxycodone-acetaminophen 10 mg-325 1 tab PO Q8H PRN 05/14/20 05/25/20 Unknown History mg tablet Exam Airway Mallampati Class: II TM Dist: >3cm Neck ROM: Full Loose/Missing/Broken Teeth: No Heart: RRR Lungs: CTA Assessment and Plan Assessment Anesthesia Assessment: Anesthesia Plan Discussed and Chart Reviewed Final Anesthetic Review NPO: Yes ASA Class: III Final Preanesthetic Review: Meds/Allgs Chart Reviewed, Consent Obtained/Reviewed and Anes Risks/Benef Reviewed Patient Risk: Intermediate Procedure Risk: Low Anesthetic Plan Anesthetic Plan: MAC: Disposition: Standard PACU
[2020-05-31 09:05] VITALS: BP 112/61; PULSE 85; RESP 16; TEMP 36.2; O2SAT 99
--- NOTE | 2020-05-31 09:11 | MHC.SHP ---
Pre-Procedural Eval Section B Chief Complaint: screening Details of Present Illness: colon cancer screening-Positive family hx in her father Relevant Family History (Specify if Yes): Yes Relevant Social History: Alcohol Use (wine amount not defined) Present Medications: see Short Stay Collaborative assessment Medical History: Significant History (COPD/Asthma, Hypertension, Obesity) History of Previous Operations: Relevant previous surgery/procedure and date(s) (Bariatric --gastric sleeve) Allergies: Allergies Allergy/AdvReac Type Severity Reaction Status Date / Time No Known Allergies Allergy Verified 05/30/20 12:38 Review of Systems Sugical H&P ROS: Negative: Constitution, Cardiovascular, Neurological and Gastrointestinal and Yes, Specify: Respiratory (copd/asthma) Exam Surgical H&P Exam: Normal: HEENT, Normal: Heart, Normal: Lungs, Normal: Extremities, Normal: Skin and Normal: Neurological and Significant Findings: Abdomen (central obesity) Plan Diagnosis/Plan: Unchanged I have reviewed the history and physical and performed a pertinent physical examination on my patient. No changes have occurred unless specified.yes
--- NOTE | 2020-05-31 09:22 | PC.NURSE ---
Multiple IV attempts by Britt Le RN, Maggie Singh RN, Annette Justice RN and Anesthesia ( Dr Mcneil). Very difficult IV access
--- NOTE | 2020-05-31 10:11 | PM.OP ---
Brief Operative Note Date of Service: 05/31/20 Pre-op diagnosis: Colon cancer screening-positive family hx in Father of colon cancer. No recent clinical changes Post-op diagnosis: other (Texture change ileocecal valve, Ascending colon polyp) Procedure: COLONOSCOPY WITH BX OF ILEOCECAL VALVE, CSP OF ASCENDING COLON POLYP. Implants: none Surgeon: Leanna Husain MD Anesthesia: MAC (Dez HEDRICK CRNA) Estimated blood loss (mL): 5 Pathology: other (ILEOCECAL VALVE BX, ASCENDING COLON POLYP) Condition: stable Disposition: PACU
[2020-05-31 10:14] VITALS: BP 107/55; PULSE 91; RESP 24; TEMP 36.6; O2SAT 98
[2020-05-31 10:29] VITALS: BP 103/67; PULSE 95; RESP 18; TEMP 36.6; O2SAT 100
--- NOTE | 2020-05-31 13:37 | P.OP_ITS ---
Operative Note Operative Note Date of Service: 05/31/20 Narrative: Pre-op diagnosis: Colon cancer screening-positive family hx in Father of colon cancer. No recent clinical changes Post-op diagnosis: other (Texture change ileocecal valve, Ascending colon polyp) Procedure: COLONOSCOPY WITH BX OF ILEOCECAL VALVE, CSP OF ASCENDING COLON POLYP. Implants: none Surgeon: Leanna Husain MD Anesthesia: MAC (Dez HEDRICK CRNA) FINDINGS: BARBARA: Slight decreased sphinter tone Adult slim colonoscope was introduced without difficulty passed through sigmoid, descending, transveres colon into the ascending colon. Once in the cecum with some minimal flushing Appendiceal orifice was seen and the valve had a surface texture that appeared to have a cryptic pattern of an adenoma. I was able to intubate the ileum for a distance of 8cm--normal villi noted. Repositioned scope--multiple bx of the more prox portion of the valve was biopsied. As I pulled back, there was a small polyp with short stalk that was easily removed with cold snare polypectomy technique. It was retrieved. Rest of colon was unre markable. ARV was clear. Estimated blood loss (mL): 5 Pathology: other (ILEOCECAL VALVE BX, ASCENDING COLON POLYP) Condition: stable Disposition: PACU PLAN: Followup colonoscopy will be dictatated by the pathology of the bx of the valve. Path area on valve reported as lymphoid, would like this reviewed this before 5 years. Other polyps TA any way--RECALL-3years.
== END 2020-05-31 11:02 | disposition home or self-care (01) ==
PROVIDERS: PCP Internal Medicine; Visit Provider Internal Medicine Gastroenterology
PROC: 0DJD8ZZ Inspection of Lower Intestinal Tract, Via Natural or Artificial Opening Endoscopic (ICD-10-PCS; CPT 45378; principal; 2020-05-31 09:20)
DX: Z12.11 Encounter for screening for malignant neoplasm of colon (principal); Z80.0 Family history of malignant neoplasm of digestive organs; D12.2 Benign neoplasm of ascending colon; I10 Essential (primary) hypertension; N28.9 Disorder of kidney and ureter, unspecified; J44.9 Chronic obstructive pulmonary disease, unspecified; D36.11 Benign neoplasm of peripheral nerves and autonomic nervous system of face, head, and neck; E66.9 Obesity, unspecified; Z68.36 Body mass index [BMI] 36.0-36.9, adult; Z98.84 Bariatric surgery status
CPT/HCPCS: 45385; 45380; 88305

== ENCOUNTER 2020-06-12 10:56 | Outpatient (REF) | payer OTHER, SELFPAY ==
--- NOTE | ~2020-06-12 | MM_ITS ---
EXAMINATION: MM SCREENING DIGITAL BREAST TOMOSYNTHESIS, BILATERAL CLINICAL INFORMATION: Screening. Asymptomatic. The lifetime risk of breast cancer based on the Tyrer-Cuzick Model is 6%. COMPARISON: Mammography: 01/12/2018, 12/05/2015, 07/06/2013 TECHNIQUE: Digital breast tomosynthesis is performed in both the craniocaudal and mediolateral oblique views along with computer-aided detection (CAD). Synthesized 2D images are generated from the tomosynthesis. FINDINGS: There are scattered areas of fibroglandular density (ACR BI-RADS breast composition Category b). There are no significant masses, abnormal calcifications, or other abnormalities. Scattered fibroglandular asymmetries are stable. No developing density. No significant changes. MM/MM tomosynthesis screening BI IMPRESSION: No mammographic evidence of malignancy. ASSESSMENT: BI-RADS 2: Benign RECOMMENDATION: Routine annual mammography screening. This patient's information was entered into a reminder system with a target due date for their next mammogram.
== END 2020-06-12 10:57 | disposition home or self-care (01) ==
LOC: HO.MAMMO 10:56
PROVIDERS: Visit Provider Internal Medicine
DX: Z12.31 Encounter for screening mammogram for malignant neoplasm of breast (principal)
CPT/HCPCS: 77063; 77067

== ENCOUNTER → 2020-06-14 12:39 | Outpatient (BNVA) | payer OTHER, SELFPAY | PROVIDERS: PCP Internal Medicine; Visit Provider Physician Assistant | DX: K63.5 Polyp of colon (principal) | CPT/HCPCS: Q3014 ==

== ENCOUNTER 2020-07-02 11:00 | Outpatient (RCR) | payer OTHER, SELFPAY ==
--- NOTE | 2020-06-06 13:04 | MHC.PT.EP ---
[facility] [place] Office [place] Office [place] Office [address] [place] Bliss [address] [phone] F: [phone] F: [phone] F: [phone] F: [phone] Physical Therapy Plan of Care Date of Evaluation: 06/06/20 Date of Surgery: Diagnosis: Achilles tendonitis R leg Assessment: 50 y/o female referred to PT with achilles tendonitis. S/s consistent with achilles tendonitis resulting in pain and difficulty with standing > 5 min, walking > 5min, stairs and rn invasive. Examination shows decreased R ankle AROM, decreased R ankle strength, decreased hip/core strength, decreased lumbar AROM, and increased pain. She has antalgic gait pattern and ambulates on R toe most likely resulting in start of low back pain. Recommend PT 2x/week for 5 weeks to address impairments, implement HEP, and optimize functional mobility. POC to include ankle/core strengthening, eccentric HR, modalities as needed for swelling and pain, KT, heel lift, stretching lumbar spine/hips/gastroc-soleus spine. Frequency and Duration: The patient will be seen 2x/week for 5 weeks Short Term Goals: 3 weeks: 1. I with HEP 2. Improve R ankle dorsiflexion to 15 degrees to assist with heel strike initial contact during gait Herbologist Goals: 5 weeks: 1. I with HEP and self management of sx 2. Pt will improve R ankle strength by one MMT grade to assist in stair climbing 3. Pt will ambulate > 20 minutes without antalgic gait pattern. Treatment Plan: Modalities to reduce pain, spasms and effusion. Manual therapy to restore motion and function. Therapeutic exercise to improve strength and flexibility. Neuromuscular re-education for posture and balance. Therapeutic activities to return to functional activities of daily living. Electronically signed by: Joann Seo PT Please sign and return to therapist. Thank you for your referral.
== END 2020-07-02 14:21 | disposition other institution (70) ==
LOC: HO.PT 11:00
PROVIDERS: PCP Internal Medicine; Visit Provider Physician Assistant
DX: M76.61 Achilles tendinitis, right leg (principal)
CPT/HCPCS: 97110; 97161; 97530

== ENCOUNTER 2020-07-04 12:56 | Outpatient (REF) | payer OTHER, SELFPAY | END 2020-07-04 12:57 | disposition home or self-care (01) | LOC: HO.LAB 12:56 | PROVIDERS: Visit Provider Internal Medicine | DX: Z20.822 Contact with and (suspected) exposure to COVID-19 (principal) | CPT/HCPCS: C9803; U0003; U0005 ==

== ENCOUNTER 2020-07-24 13:22 | Outpatient (REF) | payer OTHER, SELFPAY ==
[2020-07-24 13:43] LABS: COVID-19 Test Negative (Negative); IDNOW Serial# 55D5AD1C
== END 2020-07-24 13:23 | disposition home or self-care (01) ==
LOC: HO.LAB 13:22
PROVIDERS: Visit Provider Internal Medicine
DX: Z20.822 Contact with and (suspected) exposure to COVID-19 (principal)
CPT/HCPCS: 36415; 87635; C9803

== ENCOUNTER → 2020-10-09 15:12 | Outpatient (BNVA) | payer OTHER, SELFPAY | PROVIDERS: PCP Internal Medicine; Visit Provider Internal Medicine | DX: E66.9 Obesity, unspecified (principal); R05 Cough; J44.9 Chronic obstructive pulmonary disease, unspecified; J30.9 Allergic rhinitis, unspecified | CPT/HCPCS: 99212 ==

== ENCOUNTER 2020-12-04 17:08 | Emergency (ER) | payer OTHER, SELFPAY ==
[2020-12-04 17:30] VITALS: BP 129/70; PULSE 63; RESP 16; TEMP 36.5; O2SAT 98; BMI 35.9
== END 2020-12-04 20:23 | disposition left against medical advice (07) ==
PROVIDERS: Emergency Provider Emergency Medicine; PCP Internal Medicine
DX: R11.0 Nausea (principal); M79.10 Myalgia, unspecified site; R05 Cough
CPT/HCPCS: 99281; 99282

== ENCOUNTER 2020-12-05 16:45 | Outpatient (REF) | payer OTHER, SELFPAY ==
--- NOTE | ~2020-12-05 | XR_ITS ---
EXAMINATION: XR CHEST CLINICAL INFORMATION: Shortness of breath. COMPARISON: Multiple priors. Most recent chest radiograph 12/28/2019. TECHNIQUE: 2 views of the chest were obtained. FINDINGS: Normal appearance of the cardiomediastinal silhouette. Indeterminate hazy opacities in the left lower lobe visualized on both the PA and lateral views. No pleural effusions or pneumothorax. No acute osseous findings. Surgical clips in the upper abdomen are redemonstrated. XR/XR chest 2V IMPRESSION: Hazy opacities in the left lower lobe raising the possibility of a focal pneumonia. Correlate clinically and follow-up to ensure resolution.
== END 2020-12-05 16:46 | disposition home or self-care (01) ==
LOC: HO.XRAY 16:45
PROVIDERS: Absent Provider Internal Medicine; PCP Internal Medicine; Visit Provider Nurse Practitioner
DX: R06.02 Shortness of breath (principal)
CPT/HCPCS: 71046

== ENCOUNTER 2021-01-04 12:53 | Outpatient (REF) | payer OTHER, SELFPAY ==
--- NOTE | ~2021-01-04 | XR_ITS ---
EXAMINATION: XR CHEST CLINICAL INFORMATION: COPD. Follow-up left lower lobe opacities. COMPARISON: 12/05/2020 TECHNIQUE: 2 views of the chest were obtained. FINDINGS: The lungs are well expanded. There is no focal consolidation, edema, or effusion. No pneumothorax. The cardiomediastinal silhouette is within normal limits. No acute osseous abnormality. Left upper abdominal surgical clips. XR/XR chest 2V IMPRESSION: Clear lungs.
[2021-01-04 13:59] LABS: Hematocrit 35.5 % (37-47); Hemoglobin 10.8 g/dl (12.0-16.0); Mean Corpuscular HGB Conc 30.4 g/dl (31.0-35.0); Mean Corpuscular Hemoglobin 27.1 pg (27.0-33.0); Mean Corpuscular Volume 89.2 fL (80-98); Mean Platelet Volume 10.9 fL (9.4-12.3); Platelet Count 254 X10*3/uL (160-400); Red Blood Count 3.98 X10*6/uL (4.20-5.50); Red Cell Distribution Width 15.2 % (11.0-16.0); White Blood Count 7.2 X10*3/uL (4.8-10.8)
[2021-01-04 14:01] LABS: Appearance Urine HAZY; Color Urine YELLOW; Glucose Urine UA NEG (NEG); Leukocyte Esterase Urine NEG (NEG); Nitrite Urine NEG (NEG); PH 5.5 (5.0-8.0); Specific Gravity - Urine 1.025 (1.005-1.025); Urine Blood NEG (NEG); Urine Ketones NEG (NEG); Urine Protein NEG (NEG-TRACE)
[2021-01-04 14:33] LABS: Alanine Aminotransferase 9 U/L (0-31); Albumin Level 4.1 g/dL (3.5-5.0); Alkaline Phosphatase 96 U/L (39-117); Aspartate Amino Transferase 22 U/L (5-31); Bilirubin Direct 0.2 mg/dL (0.0-0.5); Bilirubin Total 0.3 mg/dL (0.0-1.0); Calcium 9.4 mg/dL (8.4-10.2); Magnesium 1.9 mg/dL (1.6-2.6); Phosphorus 3.5 mg/dL (2.7-4.5); Total Protein 6.7 g/dL (6.5-8.0)
[2021-01-04 14:35] LABS: Creatinine Urine 135.51 mg/dL; Microalbum/Creatinine Ratio Ur 71.5 ug/mg cr; Total Protein Urine Random 19 mg/dL (<12)
[2021-01-04 14:56] LABS: Vitamin D 25-OH Total 33.7 ng/mL (>30)
[2021-01-07 14:31] LABS: Calcium (PTHI) 9.4 mg/dL (8.6-10.4); PTHI 77 pg/mL (14-64)
== END 2021-01-04 12:54 | disposition home or self-care (01) ==
LOC: HO.XRAY 12:53
PROVIDERS: Absent Provider Internal Medicine Nephrology; PCP Internal Medicine; Referring Provider Internal Medicine; Visit Provider Nurse Practitioner
DX: I12.9 Hypertensive chronic kidney disease with stage 1 through stage 4 chronic kidney disease, or unspecified chronic kidney disease (principal); N18.32 Chronic kidney disease, stage 3b; R80.1 Persistent proteinuria, unspecified
CPT/HCPCS: 36415; 71046; 80076; 81003; 82043; 82306; 82310; 83735; 83970; 84100; 84156; 85027; 87086

== ENCOUNTER 2021-01-27 13:11 | Emergency (ER) | payer OTHER, SELFPAY ==
--- NOTE | ~2021-01-27 | XR_ITS ---
EXAMINATION: XR HIP, RIGHT CLINICAL INFORMATION: Right hip pain COMPARISON: None TECHNIQUE: Single view pelvis with 2 additional views of the right hip. FINDINGS: There is some minimal lateral acetabular osteophytes present bilaterally. Bones and soft tissues are otherwise normal. No fracture. Alignment is anatomic. Hip joint space is maintained. Phleboliths noted in the pelvis. XR/XR hip RT w PEL1V IMPRESSION: Some minimal acetabular osteophytes.
--- NOTE | ~2021-01-27 | CT_ITS ---
EXAMINATION: CT CERVICAL SPINE CLINICAL INFORMATION: Reason for Exam neck and lower back pain COMPARISON: Multiple prior CTs most recent 12/28/2019. TECHNIQUE: Computed axial sagittal and coronal images acquired using department's standard protocol. This CT examination was performed using dose optimization techniques as appropriate, variously including the following: *Automated exposure control *Adjustment of mA and/or kV according to patient size (this includes techniques or standardized protocols for targeted exams where dose is matched to indication/reason for exam; i.e. extremities or head) *Use of iterative reconstruction technique CONTRAST: None DLP: 897 mGy-cm FINDINGS: SKULL BASE: Visualized structures at skull base are normal, Included facial sinuses are clear, CERVICAL VERTEBRAE: Seven cervical vertebrae identified maintaining proper height and alignment, DISCS: C1-C2: There is no CT evidence of significant osseous narrowing of the central canal or neural foramen. C2-C3: There is a soft tissue mass protruding through the right foramen of C2-C3 partially calcified, this is chronic, this has not changed compared with the prior CT, there is a report of a mass seen on prior MRI dated 06/26/2011. Subtle transverse radiolucent line and likely nutrient channel. This has not changed either. C3-C4: There is no CT evidence of significant osseous narrowing of the central canal or neural foramen. C4-C5: There is no CT evidence of significant osseous narrowing of the central canal or neural foramen. C5-C6: There is no CT evidence of significant osseous narrowing of the central canal or neural foramen. C6-C7: There is no CT evidence of significant osseous narrowing of the central canal or neural foramen. C7-T1: There is no CT evidence of significant osseous narrowing of the central canal or neural foramen. PARAVERTEBRAL SOFT TISSUE: Paravertebral soft tissues unremarkable. Lumbar spine: Lumbar vertebra, 5 nonrib-bearing lumbar vertebrae identified maintaining proper height and alignments. Intervertebral disc spaces are preserved. Bone alignments are satisfactory. Left renal cyst 1.4 cm unchanged from prior CT of March 2017. Otherwise Paravertebral soft tissue unremarkable. Mild DJD of SI joints. CT/CT cervical spine wo con IMPRESSION: 1. No fracture. 2. No dislocation. 3. Partially calcified soft tissue mass along the neural foramen right side at C2-C3 chronic unchanged. This has been described in detail on the prior MRI from 2011. 4. Mild DJD of SI joints. 5. Paravertebral soft tissues otherwise unremarkable.
[2021-01-27 13:33] VITALS: BP 106/64; PULSE 79; RESP 18; TEMP 36.8; O2SAT 99; BMI 35.9
[2021-01-27] MEDS: Ketorolac Tromethamine 15 MG/ML VIAL 30 MG IM (15:54)
[2021-01-27] MEDS: Cyclobenzaprine HCl 10 MG TABLET PO (15:54)
[2021-01-27] MEDS: Lidocaine 4 % Patch ADH..PATCH 1 PATCH TRANSDERMA (16:39)
--- NOTE | 2021-01-27 16:56 | ED.BACK ---
HPI - Back Pain/Injury General Chief Complaint: Back Pain/Injury Stated Complaint: Left Sided pain Time Seen by Provider: 01/27/21 15:34 Source: patient Mode of arrival: ambulatory Limitations: language barrier ([place]ican-speaking) History of Present Illness HPI Narrative: 50-year-old female with a past medical history of Schwannoma of nerve of neck, arthritis, asthma, COPD, hypertension, obesity and renal insufficiency presenting to the ED with complaints of atraumatic lower back pain and right hip pain for the past few days worse today. Reports that the pain from her back/right hip is now radiating to her right side of her neck. She reports it is worse with movement especially when she is twist her back/body. She reports she is able to walk although has pain with walking. She denies any dizziness, headaches, neck pain/stiffness, chest pain or shortness of breath, paresthesias, dyspnea on exertion, orthopnea, palpitations, nausea/vomiting/diarrhea, constipation, abdominal pain, dysuria, hematuria, abnormal vaginal discharge, saddle anesthesias, recent falls or trauma, rashes or any other symptoms complaints or concerns at this time. MD elicited complaint: back pain Pertinent past history: prior back pain Onset (ago): day(s) Timing: constant and progressively worsening Severity: severe Pain scale (0-10): 10 Similar Symptoms Previously: Yes Quality: aching and spasming Location: lumbar spine Radiation: right upper leg and neck Exacerbating factors: movement Relieving factors: none Context: unknown Associated symptoms: denies other symptoms Treatments prior to arrival: other (Motrin/Tylenol and her prescribed Percocet and no symptomatic relief) Work related injury: No Related Data Home Medications Medication Instructions Recorded Confirmed gabapentin 300 mg capsule 300 mg PO TID 12/29/19 06/14/20 hydrochlorothiazide 25 mg tablet 25 mg PO DAILY 12/29/19 06/14/20 ipratropium 20 mcg-albuterol 100 1 puff INHALATION QID 12/29/19 06/14/20 mcg/actuation mist for inhalation lisinopril 5 mg tablet 5 mg PO DAILY 12/29/19 06/14/20 loratadine 10 mg tablet 10 mg PO DAILY 12/29/19 06/14/20 montelukast 10 mg tablet 10 mg PO DAILY 12/29/19 06/14/20 oxybutynin chloride 10 mg 10 mg PO DAILY 12/29/19 06/14/20 tablet,extended release 24 hr hydroxyzine HCl 25 mg tablet 25 mg PO BID PRN 03/21/20 06/14/20 albuterol sulfate 0.63 mg/3 mL 0.63 mg INHALATION Q4-6H PRN 05/14/20 06/14/20 solution for nebulization fluticasone propionate 50 2 spray INTRANASAL DAILY 05/14/20 06/14/20 mcg/actuation nasal spray,suspension naloxone 4 mg/actuation nasal spray 1 spray INTRANASAL ONCE PRN 05/14/20 06/14/20 oxycodone-acetaminophen 10 mg-325 1 tab PO Q8H PRN 05/14/20 06/14/20 mg tablet Previous Rx's Medication Instructions Recorded cyclobenzaprine 10 mg tablet 10 mg PO TID PRN #10 tab 12/28/19 ondansetron HCl 4 mg tablet 4 mg PO Q6H PRN #10 tab 12/28/19 (Zofran) cholecalciferol (vitamin D3) 50 50 mcg PO DAILY #90 cap 01/23/20 mcg (2,000 unit) capsule docusate sodium 100 mg capsule 200 mg PO BEDTIME #60 cap 04/30/20 (Colace) diclofenac sodium 75 mg 75 mg PO BID 30 Days #60 tab 05/30/20 tablet,delayed release albuterol sulfate 90 mcg/actuation 2 puff INHALATION Q4-6H PRN 60 10/09/20 aerosol inhaler (ProAir HFA) Days #8.5 g diazepam 10 mg tablet (Valium) 10 mg PO TID PRN #14 tab 01/27/21 lidocaine 5 % topical patch 1 patch TOPICAL DAILY #15 ea 01/27/21 (Lidoderm) Allergies Allergy/AdvReac Type Severity Reaction Status Date / Time No Known Allergies Allergy Verified 01/27/21 13:33 Review of Systems Review of Systems: Constitutional : No trauma, No Weight loss, No Fever, No Chills, ENT/Mouth : No Hearing loss, No Ear Pain, No Nasal Congestion, No Sinus Pain, No Hoarseness, No sore throat, No Rhinorrhea, No Swallowing Difficulty Cardiovascular : No Chest Pain, No SOB Respiratory : No Cough, No Dyspnea Gastrointestinal : No Nausea, No Vomiting, No Diarrhea, No abdominal Pain, No Hematochezia, No Melena Genitourinary : No Dysuria, No Urinary Frequency, No Hematuria, No Urinary or Bowel Incontinence/retention Musculoskeletal : + Neck/Back pain, + Right Hip pain, No joint stiffness, No joint swelling Skin : No Skin Lesions, No rash or signs of infection Neuro : No Weakness, No radiation, No Numbness, No Paresthesias, No headache, no loss of bowel or bladder incontinence, no saddle anesthesia, Focal weakness, No radiation Denies history of IV drug usage. Yes all other systems are reviewed and are negative [facility] Past Medical History Attestation statement: The following information was validated with the patient. Medical History Allergic rhinitis Arthritis Asthma Carpal tunnel syndrome COPD (chronic obstructive pulmonary disease) Cough Family history of colon cancer in father HTN (hypertension) Obesity Renal insufficiency Schwannoma of nerve of neck Surgical History History of esophagogastroduodenoscopy (EGD) History of sleeve gastrectomy Hx of tubal ligation Family History Family History Father No problems noted. Mother Diabetes Hypertension Son No problems noted. Son No problems noted. Brother No problems noted. Brother Diabetes Sister No problems noted. Social History Social History Household Members: Spouse Alcohol intake: current Alcohol type: wine Advance Directives: No Advance Directives Information Provided: Yes Patient : No Current occupational status: disabled Physical Exam Vital Signs: Vital Signs: Last Vital Signs Temp 98.3 F 01/27/21 13:33 Pulse 79 01/27/21 13:33 Resp 18 01/27/21 13:33 BP 106/64 01/27/21 13:33 Pulse Ox 99 01/27/21 13:33 Body Mass Index 35.9 vital signs have been reviewed as normal and appeared to be correct. Blood pressure normal. Heart rate normal. Respiration rate normal. Temperature normal. Oxygen saturation normal. Appearance: Alert. Oriented X3. No acute distress. Head: Normal external exam. Normocephalic. Atraumatic. Eyes: PERRLA. EOMI. Conjunctiva and sclera normal. Eyelids normal. ENT: Pharynx normal. Uvula midline. Moist mucous membranes. No trismus noted. No drooling noted. No muffled voice noted. Neck: Normal inspection. Neck supple. FROM. No adenopathy. Thyroid Normal. Trachea midline. No meningeal signs. No neck mass noted. Tender to palpation of bilateral paracervical musculature and mid cervical tenderness. No step-offs or deformities noted. Patient neuro intact bilaterally and distally on all 4 extremities. Reflexes intact bilaterally and distally in all 4 extremities. No rashes/lesion/induration/fluctuance or signs of infection noted. No edema noted. CVS: Normal heart rate and rhythm. Heart sound normal. No murmurs noted. Pulses normal throughout. Respiratory: No respiratory distress. Painless inspiration. Breath sounds normal. No wheezes/rales/rhonchi noted. Chest nontender. No accessory muscle usage noted or decreased air movement noted. Abdomen: Soft and nontender. Bowel sounds normal in all 4 quadrants. No distention noted. No organomegaly noted. No visible injury noted. Back: No CVA tenderness. Full range of motion noted. No obvious deformities, or edema. Mild para-spinal muscular tenderness from lumbar region to coccyx. Full ROM in back and lower extremities. 5/5 strength hip extension/flexion, abduction, adduction. Mild Lumbar pain with hip flexion against resistance. Straight leg raise test negative on right; Straight leg raise test negative on left; Reflexes normal ankle and knee bilaterally; EHL motor strength normal bilaterally. No rashes/lesion/induration/fluctuance or signs infection noted. Skin: Skin warm and dry. Normal skin color. Normal skin turgor. No rashes/lesions/lacerations noted. Extremities: Patient moderate tenderness palpation to the right hip. No obvious ligamentous or tendon injury. No signs of infection. Patient has a full range of motion of the right hip. No lower extremity edema. Otherwise all other Extremities exhibit normal range of motion and nontender. Neuro: Oriented X 3. No motor deficit. No sensory deficit. Reflexes normal. Patient has a normal slow steady gait. Course Course Course Narrative: 15:50pm - Pt c likely muscular pain, but could be herniated disc. Neuro exam shows no deficits. Not c/w vascular etiology, perivertebral / other soft tissue neck / airway infection, or spinal fx / process. Not c/w AAA/epidural abscess/dissection.No high risk Hx (Incont, fever, immunosupp, recent surgery/LP, coag, signif trauma, wt loss, puls mass, hx/o Ca, TB, or IVDU) to warrant MRI. Not c/w Pyelo/UTI/kidney stone/spinal fx. Not cauda equina syndrome. Due to patient having severe pain will obtain a CT scan of cervical and lumbar spine and an x-ray of her right hip provide symptomatic relief and re-evaluate. Reevaluation(s) Reevaluation #1: - CT scan of cervical spine and lumbar spine revealed chronic changes no acute processes are noted. X-ray of right hip revealed chronic changes no acute processes. There at this time patient most likely muscular strain will DC home with symptomatic treatment instructions return if any new or worsening symptoms to follow up with primary care provider. Patient understands agrees with this plan. Time: 17:52 MDM - Back Pain/Injury Medical Records Attestation: I reviewed the patient's medical records. Imaging Data CT scan of cervical/lumbar spine without contrast: Attestation: I personally reviewed and interpreted this imaging study as follows: Radiologist's impression: FINDINGS:? SKULL BASE: Visualized structures at skull base are normal,? Included facial sinuses are clear,? CERVICAL VERTEBRAE: Seven cervical vertebrae identified maintaining proper height and alignment,? DISCS: C1-C2: There is no CT evidence of significant osseous narrowing of the central canal or neural foramen. C2-C3: There is a soft tissue mass protruding through the right foramen of C2-C3 partially calcified, this is chronic, this has not changed compared with the prior CT, there is a report of a mass seen on prior MRI dated 06/26/2011. Subtle transverse radiolucent line and likely nutrient channel. This has not changed either. C3-C4: There is no CT evidence of significant osseous narrowing of the central canal or neural foramen. C4-C5: There is no CT evidence of significant osseous narrowing of the central canal or neural foramen. C5-C6: There is no CT evidence of significant osseous narrowing of the central canal or neural foramen. C6-C7: There is no CT evidence of significant osseous narrowing of the central canal or neural foramen. C7-T1: There is no CT evidence of significant osseous narrowing of the central canal or neural foramen. PARAVERTEBRAL SOFT TISSUE: Paravertebral soft tissues unremarkable. Lumbar spine: Lumbar vertebra, 5 nonrib-bearing lumbar vertebrae identified maintaining proper height and alignments. Intervertebral disc spaces are preserved. Bone alignments are satisfactory. Left renal cyst 1.4 cm unchanged from prior CT of March 2017. Otherwise Paravertebral soft tissue unremarkable. Mild DJD of SI joints. ? CT/CT cervical spine wo con IMPRESSION: ? 1. No fracture. 2. No dislocation. 3. Partially calcified soft tissue mass along the neural foramen right side at C2-C3 chronic unchanged. This has been described in detail on the prior MRI from 2011. 4. Mild DJD of SI joints. 5. Paravertebral soft tissues otherwise unremarkable. Right hip/pelvis x-ray: Attestation: I personally reviewed and interpreted this imaging study as follows: Radiologist's impression: FINDINGS: There is some minimal lateral acetabular osteophytes present bilaterally. Bones and soft tissues are otherwise normal. No fracture. Alignment is anatomic. Hip joint space is maintained. Phleboliths noted in the pelvis. XR/XR hip RT w PEL1V IMPRESSION: Some minimal acetabular osteophytes. ? Discharge Plan Discharge Clinical Impression: Muscle strain Patient Disposition: Home, Self-Care Instructions: Musculoskeletal Pain (ED) Prescriptions: New lidocaine [Lidoderm] 5 % adhesive patch,medicated 1 patch topical DAILY Qty: 15 RF: 0 diazepam [Valium] 10 mg tablet 10 mg PO TID PRN (Reason: muscle spasm) Qty: 14 RF: 0 No Action cholecalciferol (vitamin D3) 50 mcg (2,000 unit) capsule 50 mcg PO DAILY Qty: 90 RF: 3 ondansetron HCl [Zofran] 4 mg tablet 4 mg PO Q6H PRN (Reason: nausea and vomiting) Qty: 10 RF: 0 cyclobenzaprine 10 mg tablet 10 mg PO TID PRN (Reason: muscle spasm) Qty: 10 RF: 0 hydroxyzine HCl 25 mg tablet 25 mg PO BID PRN (Reason: Anxiety) RF: 0 docusate sodium [Colace] 100 mg capsule 200 mg PO BEDTIME Qty: 60 RF: 5 gabapentin 300 mg capsule 300 mg PO TID RF: 0 hydrochlorothiazide 25 mg tablet 25 mg PO DAILY RF: 0 Combivent Respimat 20-100 mcg/actuation mist 1 puff inhalation QID RF: 0 lisinopril 5 mg tablet 5 mg PO DAILY RF: 0 loratadine 10 mg tablet 10 mg PO DAILY RF: 0 montelukast 10 mg tablet 10 mg PO DAILY RF: 0 oxybutynin chloride 10 mg tablet extended release 24hr 10 mg PO DAILY RF: 0 fluticasone propionate 50 mcg/actuation spray,suspension 2 spray intranasal DAILY RF: 0 oxycodone-acetaminophen 10-325 mg tablet 1 tab PO Q8H PRN (Reason: Pain) RF: 0 Narcan 4 mg/actuation spray,non-aerosol 1 spray intranasal ONCE PRNRF: 0 albuterol sulfate 0.63 mg/3 mL solution for nebulization 0.63 mg inhalation Q4-6H PRN (Reason: Wheezing) RF: 0 diclofenac sodium 75 mg tablet,delayed release (DR/EC) 75 mg PO BID 30 Days Qty: 60 RF: 2 Hold Instructions: Resume on 06/06/20. polypectomy albuterol sulfate [ProAir HFA] 90 mcg/actuation HFA aerosol inhaler 2 puff inhalation Q4-6H PRN (Reason: shortness of breath or wheezing) 60 Days Qty: 8.5 RF: 2 Referrals: Diane Duff MD [Primary Care Provider] - 2 days Print Language: [place]ican
[2021-01-27] MEDS: diazePAM 5 MG TABLET PO (18:16)
== END 2021-01-27 18:25 | disposition home or self-care (01) ==
PROVIDERS: Emergency Provider Emergency Medicine Emergency Medical Services; PCP Internal Medicine
DX: S16.1XXA Strain of muscle, fascia and tendon at neck level, initial encounter (principal); M54.50 Low back pain, unspecified; M79.661 Pain in right lower leg; M54.2 Cervicalgia; I10 Essential (primary) hypertension; R10.2 Pelvic and perineal pain; X58.XXXA Exposure to other specified factors, initial encounter; Y93.9 Activity, unspecified; Y92.9 Unspecified place or not applicable; Y99.9 Unspecified external cause status; Z79.899 Other long term (current) drug therapy
CPT/HCPCS: 72125; 72131; 73502; 96372; 99283; 99284; J1885

== ENCOUNTER → 2021-02-11 11:27 | Outpatient (BNVA) | payer OTHER, SELFPAY | PROVIDERS: PCP Internal Medicine; Referring Provider Internal Medicine; Visit Provider Physician Assistant Surgical | DX: E66.9 Obesity, unspecified (principal); Z68.35 Body mass index [BMI] 35.0-35.9, adult | CPT/HCPCS: 99212 ==

== ENCOUNTER 2021-03-19 12:26 | Outpatient (REF) | payer OTHER, SELFPAY ==
[2021-03-19 12:47] LABS: MANUAL DIFF FLAG NO
[2021-03-19 13:22] LABS: Basophils Absolute Auto 0.1 X10*3/uL (0.0-0.2); Basophils Percent Auto 0.8 % (0-2); Eosinophils Absolute Auto 0.2 X10*3/uL (0.0-0.4); Eosinophils Percent Auto 3.2 % (0-4); Hematocrit 34.5 % (37.0-47.0); Hemoglobin 10.4 g/dl (12.0-16.0); Imm Gran Abs Auto 0.03 X10*3/uL (0.00-0.03); Imm Gran Pct Auto 0.5 % (0.0-0.4); Lymphocytes Absolute Auto 1.8 X10*3/uL (1.2-4.9); Lymphocytes Percent Auto 28.1 % (20-40); Mean Corpuscular HGB Conc 30.1 g/dl (31.0-35.0); Mean Corpuscular Hemoglobin 26.6 pg (27.0-33.0); Mean Corpuscular Volume 88.2 fL (80.0-98.0); Mean Platelet Volume 10.4 fL (9.4-12.3); Monocytes Absolute Auto 0.7 X10*3/uL (0.1-1.2); Neutrophils Absolute Auto 3.7 x10*3/uL (2.0-8.3); Neutrophils Percent Auto 56.4 % (45-73); Platelet Count 248 X10*3/uL (160-400); Red Blood Count 3.91 X10*6/uL (4.20-5.50); Red Cell Distribution Width 15.9 % (11.0-16.0); White Blood Count 6.5 X10*3/uL (4.8-10.8)
[2021-03-19 13:44] LABS: Alanine Aminotransferase 14 U/L (0-31); Albumin Level 3.9 g/dL (3.5-5.0); Alkaline Phosphatase 109 U/L (39-117); Aspartate Amino Transferase 19 U/L (5-31); Bilirubin Direct 0.2 mg/dL (0.0-0.5); Bilirubin Total 0.4 mg/dL (0.0-1.0); Calcium 9.6 mg/dL (8.4-10.2); Magnesium 2.2 mg/dL (1.6-2.6); Phosphorus 4.1 mg/dL (2.7-4.5); Total Protein 6.7 g/dL (6.5-8.0)
[2021-03-19 14:07] LABS: Vitamin D 25-OH Total 27.7 ng/mL (>30)
[2021-03-19 14:10] LABS: Appearance Urine HAZY; Color Urine STRAW; Glucose Urine UA NEG (NEG); Leukocyte Esterase Urine NEG (NEG); Nitrite Urine NEG (NEG); Urine Blood NEG (NEG); Urine Ketones NEG (NEG); Urine Protein NEG (NEG-TRACE)
[2021-03-19 14:35] LABS: Microalbum/Creatinine Ratio Ur 47.7 ug/mg cr; Total Protein Urine Random < 7 mg/dL (<12)
[2021-03-20 13:50] LABS: Calcium (PTHI) 9.2 mg/dL (8.6-10.4); PTHI 90 pg/mL (14-64)
[2021-03-20 14:47] LABS: Anion Gap 11 (12-20); Blood Urea Nitrogen 44 mg/dL (9-16); Carbon Dioxide 25 mmol/L (22-29); Chloride 112 mmol/L (96-108); Estimated Glomerular Filt Rate 37; Potassium 4.7 mmol/L (3.3-5.1); Sodium 143 mmol/L (135-145)
== END 2021-03-19 12:27 | disposition home or self-care (01) ==
LOC: HO.LAB 12:26
PROVIDERS: PCP Internal Medicine; Visit Provider Internal Medicine Nephrology
DX: R80.1 Persistent proteinuria, unspecified (principal); I12.9 Hypertensive chronic kidney disease with stage 1 through stage 4 chronic kidney disease, or unspecified chronic kidney disease; N18.32 Chronic kidney disease, stage 3b
CPT/HCPCS: 36415; 80051; 80076; 81003; 82043; 82306; 82310; 82565; 83735; 83970; 84100; 84156; 84520; 85025; 87086; 87088; 87186

== ENCOUNTER → 2021-04-15 10:55 | Outpatient (BNVA) | payer OTHER, SELFPAY | PROVIDERS: PCP Internal Medicine; Visit Provider Internal Medicine | DX: J45.909 Unspecified asthma, uncomplicated (principal); J30.9 Allergic rhinitis, unspecified; R05.9 Cough, unspecified | CPT/HCPCS: 94010; 99212 ==

== ENCOUNTER 2021-04-22 13:46 | Outpatient (REF) | payer OTHER, SELFPAY | END 2021-04-22 13:47 | disposition home or self-care (01) | LOC: HO.LAB 13:46 | PROVIDERS: PCP Internal Medicine | DX: R31.9 Hematuria, unspecified (principal) | CPT/HCPCS: 99202 ==

== ENCOUNTER 2021-05-15 09:46 | Outpatient (REF) | payer OTHER, SELFPAY ==
--- NOTE | ~2021-05-15 | US_ITS ---
EXAMINATION: US RETROPERITONEAL LIMITED (RENAL ONLY) CLINICAL INFORMATION: Hematuria, unspecified. COMPARISON: CT abdomen and pelvis 04/08/2017. Ultrasound abdomen complete with elastography 11/25/2016. TECHNIQUE: Real-time imaging of the kidneys. FINDINGS: RIGHT KIDNEY: 9.8 x 4.7 x 4.1 cm (SAG x AP x TRV). The kidney is normal in size, contour, and echogenicity. Renal cortical thickness is normal. No renal calculi or hydronephrosis. There is a simple appearing cyst in the upper pole that measures up to 0.9 cm. There is a simple appearing cyst in the mid polar region measuring up to 0.8 cm LEFT KIDNEY: 9.0 x 4.6 x 4.7 cm (SAG x AP x TRV). The kidney is normal in size, contour, and echogenicity. Renal cortical thickness is normal. No calculi or focal parenchymal lesions. No hydronephrosis. US/US renal BI IMPRESSION: Simple cysts of the right kidney, for which no further follow-up is necessary. Previously seen left upper pole cyst is not well appreciated on the current study.
== END 2021-05-15 09:47 | disposition home or self-care (01) ==
LOC: HO.US 09:46
PROVIDERS: PCP Internal Medicine; Visit Provider Urology
DX: R31.9 Hematuria, unspecified (principal)
CPT/HCPCS: 76775

== ENCOUNTER → 2021-07-19 09:41 | Outpatient (BNVA) | payer OTHER, SELFPAY | PROVIDERS: PCP Internal Medicine | DX: Z13.89 Encounter for screening for other disorder (principal) | CPT/HCPCS: Q3014 ==

== ENCOUNTER 2021-09-27 13:06 | Outpatient (REF) | payer OTHER, SELFPAY ==
[2021-09-27 13:51] LABS: Appearance Urine CLEAR; Color Urine YELLOW; Glucose Urine UA NEG (NEG); Leukocyte Esterase Urine TRACE (NEG); Nitrite Urine NEG (NEG); Specific Gravity - Urine 1.015 (1.005-1.025); Urine Blood NEG (NEG); Urine Ketones NEG (NEG); Urine Protein NEG (NEG-TRACE)
[2021-09-27 14:11] LABS: Creatinine Urine 62.95 mg/dL; Microalbumin Urine < 5.0 mg/L; Total Protein Urine Random < 7 mg/dL (<12)
[2021-09-27 14:15] LABS: Albumin Level 4.2 g/dL (3.5-5.0); Anion Gap 11 (12-20); Blood Urea Nitrogen 40 mg/dL (9-16); Calcium 9.2 mg/dL (8.4-10.2); Carbon Dioxide 22 mmol/L (22-29); Chloride 111 mmol/L (96-108); Estimated Glomerular Filt Rate 30; Sodium 139 mmol/L (135-145)
[2021-09-27 14:27] LABS: Vitamin D 25-OH Total 33.9 ng/mL (>30)
[2021-09-27 14:35] LABS: Bacteria Urine 3+ /LPF; RBC Urine 0 /HPF (0); Squamous Epithelial Cell Urine 2+ /LPF
[2021-10-01 15:52] LABS: Calcium (PTHI) 9.4 mg/dL (8.6-10.4); PTHI 98 pg/mL (16-77)
== END 2021-09-27 13:07 | disposition home or self-care (01) ==
LOC: HO.LAB 13:06
PROVIDERS: PCP Internal Medicine; Visit Provider Internal Medicine Nephrology
DX: N18.32 Chronic kidney disease, stage 3b (principal); N02.8 Recurrent and persistent hematuria with other morphologic changes
CPT/HCPCS: 36415; 80051; 81001; 82040; 82043; 82306; 82310; 82565; 83735; 83970; 84100; 84156; 84520; 87086; 87088; 87186

== ENCOUNTER → 2021-10-09 10:52 | Outpatient (BNVA) | payer OTHER, SELFPAY | PROVIDERS: PCP Internal Medicine; Visit Provider Internal Medicine | DX: J44.9 Chronic obstructive pulmonary disease, unspecified (principal); J45.909 Unspecified asthma, uncomplicated | CPT/HCPCS: 99212 ==

== ENCOUNTER 2021-10-23 23:21 | Emergency (ER) | payer OTHER, SELFPAY ==
[2021-10-23 23:44] VITALS: BP 103/51; PULSE 74; RESP 16; TEMP 37; O2SAT 98; BMI 35.9
[2021-10-24 02:42] VITALS: BP 109/58; PULSE 75; RESP 14; TEMP 36.9; O2SAT 96
--- NOTE | 2021-10-24 04:00 | ED_ITS ---
HPI - Skin/Abscess/Foreign Bdy General Chief complaint: Skin/Abscess/Foreign Body Stated complaint: pain in breast, feels lump Time Seen by Provider: 10/23/21 23:57 Source: patient Mode of arrival: ambulatory History of Present Illness HPI narrative: 51-year-old female with presentation for worsening redness and infections/pain at the underside of the right breast that she was started on doxycycline for 3 days ago by her primary care provider. She denies any nipple drainage or fever/chills. Related Data Home Medications Medication Instructions Recorded Confirmed gabapentin 300 mg capsule 300 mg PO TID 12/29/19 06/14/20 hydrochlorothiazide 25 mg tablet 25 mg PO DAILY 12/29/19 06/14/20 ipratropium 20 mcg-albuterol 100 1 puff inhalation QID 12/29/19 06/14/20 mcg/actuation mist for inhalation lisinopril 5 mg tablet 5 mg PO DAILY 12/29/19 06/14/20 loratadine 10 mg tablet 10 mg PO DAILY 12/29/19 06/14/20 montelukast 10 mg tablet 10 mg PO DAILY 12/29/19 06/14/20 hydroxyzine HCl 25 mg tablet 25 mg PO BID PRN Anxiety 03/21/20 06/14/20 albuterol sulfate 0.63 mg/3 mL 0.63 mg inhalation Q4-6H PRN 05/14/20 06/14/20 solution for nebulization Wheezing fluticasone propionate 50 2 spray intranasal DAILY 05/14/20 06/14/20 mcg/actuation nasal spray,suspension naloxone 4 mg/actuation nasal spray 1 spray intranasal ONCE PRN 05/14/20 06/14/20 oxycodone-acetaminophen 10 mg-325 1 tab PO Q8H PRN Pain 05/14/20 06/14/20 mg tablet fluticasone 250 mcg-salmeterol 50 ea inhalation 04/15/21 mcg/dose blistr powdr for inhalation (Lazaro Inhub) pantoprazole 40 mg tablet,delayed 40 mg PO DAILY 04/15/21 release Previous Rx's Medication Instructions Recorded cyclobenzaprine 10 mg tablet 10 mg PO TID PRN muscle spasm #10 12/28/19 tabs ondansetron HCl 4 mg tablet 4 mg PO Q6H PRN nausea and 12/28/19 (Zofran) vomiting #10 tabs cholecalciferol (vitamin D3) 50 50 mcg PO DAILY #90 caps 01/23/20 mcg (2,000 unit) capsule docusate sodium 100 mg capsule 200 mg PO BEDTIME #60 caps 04/30/20 (Colace) diazepam 10 mg tablet (Valium) 10 mg PO TID PRN muscle spasm #14 01/27/21 tabs albuterol sulfate 90 mcg/actuation 2 puff inhalation Q4-6H PRN for 04/10/21 aerosol inhaler wheezing #8.5 ea oxybutynin chloride 10 mg 10 mg PO DAILY incont 30 days #30 04/22/21 tablet,extended release 24 hr tabs Allergies Allergy/AdvReac Type Severity Reaction Status Date / Time No Known Allergies Allergy Verified 10/23/21 23:48 Review of Systems Review of Systems: Pertinent positives and negatives as stated in HPI 10 point review of systems is otherwise negative. [facility] Past Medical History Medical History Allergic rhinitis Arthritis Asthma Carpal tunnel syndrome COPD (chronic obstructive pulmonary disease) Cough Family history of colon cancer in father Hematuria HTN (hypertension) Obesity Renal cyst Renal insufficiency Schwannoma of nerve of neck Surgical History History of esophagogastroduodenoscopy (EGD) History of sleeve gastrectomy Hx of tubal ligation Family History Family History Father No problems noted. Mother Diabetes Hypertension Son No problems noted. Son No problems noted. Brother No problems noted. Brother Diabetes Sister No problems noted. Social History Social History Household Members: Spouse Alcohol intake: never Patient Tobacco Use Status: Never used Tobacco Use of substances other than those prescribed or required for medical reasons: No Advance Directives: No Patient : No Current occupational status: disabled Physical Exam Vital Signs: Vital Signs: Last Vital Signs Temp 98.4 F 10/24/21 02:42 Pulse 75 10/24/21 02:42 Resp 14 10/24/21 02:42 BP 109/58 L 10/24/21 02:42 Pulse Ox 96 10/24/21 02:42 O2 Del Method 10/24/21 02:42 BMI result Body Mass Index 35.9 VITAL SIGNS: Reviewed. GENERAL: Well developed, well nourished, in no acute distress. HEAD: Normocephalic/atraumatic EYES: PERRLA, EOMI EARS: Ext canals without abnormality OROPHARYNX: no oral lesions noted, posterior pharynx clear LUNGS: Normal breath sounds. No adventitious sounds or accessory muscle use. SpO2<>96 BREAST: Fluctuant mass at approximate 7 o'clock position of the right breast with surrounding erythema CARDIOVASCULAR: Regular rate and rhythm without noted murmurs, no JVD or lower extremity edema. ABDOMEN: Soft, non-tender, non-distended with bowel sounds. MUSCULOSKELETAL: No tenderness, deformities, or effusions noted on gross inspection. EXTREMITIES: No cyanosis, clubbing or edema. SKIN: Inspection of the skin reveals no rashes NEUROLOGIC: Alert and oriented x 4. Strength and sensation to light touch were grossly intact x 4. Course Course Course Narrative: 51-year-old female with history and clinical presentation consistent with abscess of the breast, she gets yearly mammograms in her next is due in November. Abscess was incised with copious amounts of purulence material expressed, irrigated, and patient was instructed to complete the course of antibiotics and to follow-up with her primary care provider. Procedures Abscess I/D Site: chest Side (if applicable): right Technique: incised with blade Amount of fluid expressed (mL): 40 Sent for culture/gram staining?: No Irrigation: Yes Packing used?: none Complications: pain Discharge Plan Discharge Clinical Impression: Abscess of breast Patient Disposition: Home, Self-Care Instructions: Mastitis (ED), Abscess (ED), Abscess Follow-up (ED), Warm Compress or Soak (ED) Additional Instructions: 1. Reanudar todos los medicamentos caseros seg?n lo prescrito. 2. Complete el curso restante de nancy antibi?ticos. 3. Aplique compresas h?medas y tibias en el sitio de la infecci?n al menos dos veces al d?a. 4. Aydin un seguimiento con luong proveedor de atenci?n primaria llamando al co nsultorio y programando yue alcon para yue reevaluaci?n. Regrese a la elia de emergencias si los s?ntomas empeoran. Prescriptions: No Action cholecalciferol (vitamin D3) 50 mcg (2,000 unit) capsule 50 mcg PO DAILY Qty: 90 3RF albuterol sulfate 90 mcg/actuation HFA aerosol inhaler 2 puff inhalation Q4-6H PRN (Reason: for wheezing) Qty: 8.5 2RF ondansetron HCl [Zofran] 4 mg tablet 4 mg PO Q6H PRN (Reason: nausea and vomiting) Qty: 10 0RF cyclobenzaprine 10 mg tablet 10 mg PO TID PRN (Reason: muscle spasm) Qty: 10 0RF diazepam [Valium] 10 mg tablet 10 mg PO TID PRN (Reason: muscle spasm) Qty: 14 0RF hydroxyzine HCl 25 mg tablet 25 mg PO BID PRN (Reason: Anxiety) docusate sodium [Colace] 100 mg capsule 200 mg PO BEDTIME Qty: 60 5RF gabapentin 300 mg capsule 300 mg PO TID hydrochlorothiazide 25 mg tablet 25 mg PO DAILY Combivent Respimat 20-100 mcg/actuation mist 1 puff inhalation QID lisinopril 5 mg tablet 5 mg PO DAILY loratadine 10 mg tablet 10 mg PO DAILY montelukast 10 mg tablet 10 mg PO DAILY fluticasone propionate 50 mcg/actuation spray,suspension 2 spray intranasal DAILY oxycodone-acetaminophen 10-325 mg tablet 1 tab PO Q8H PRN (Reason: Pain) Narcan 4 mg/actuation spray,non-aerosol 1 spray intranasal ONCE PRN albuterol sulfate 0.63 mg/3 mL solution for nebulization 0.63 mg inhalation Q4-6H PRN (Reason: Wheezing) pantoprazole 40 mg tablet,delayed release (DR/EC) 40 mg PO DAILY fluticasone propion-salmeterol [Wixela Inhub] 250-50 mcg/dose blister with device inhalation oxybutynin chloride 10 mg tablet extended release 24hr 10 mg PO DAILY 30 Days Qty: 30 3RF Print Language: Wallisian
[2021-10-24] MEDS: Acetaminophen 325 MG TABLET 975 MG PO (04:04)
[2021-10-24] MEDS: Ketorolac Tromethamine 15 MG/ML VIAL IM (04:04)
== END 2021-10-24 04:11 | disposition home or self-care (01) ==
PROVIDERS: Emergency Provider Student in an Organized Health Care Education/Training Program
DX: N61.1 Abscess of the breast and nipple (principal); E66.9 Obesity, unspecified; Z68.35 Body mass index [BMI] 35.0-35.9, adult; Z98.51 Tubal ligation status; Z90.3 Acquired absence of stomach [part of]
CPT/HCPCS: 10060; 96372; 99284; J1885

== ENCOUNTER 2021-11-14 11:13 | Outpatient (REF) | payer OTHER, SELFPAY ==
--- NOTE | ~2021-11-14 | MM_ITS ---
EXAMINATION: MM SCREENING DIGITAL BREAST TOMOSYNTHESIS, BILATERAL CLINICAL INFORMATION: Screening. Asymptomatic. The lifetime risk of breast cancer based on the Tyrer-Cuzick Model is 6%. COMPARISON: Mammography: 06/12/2020, 01/12/2018, 12/05/2015 TECHNIQUE: Digital breast tomosynthesis is performed in both the craniocaudal and mediolateral oblique views along with computer-aided detection (CAD). Synthesized 2D images are generated from the tomosynthesis. FINDINGS: There are scattered areas of fibroglandular density (ACR BI-RADS breast composition Category b). There is fine fibronodular parenchymal pattern similar to prior studies. No developing density or interval mass or architectural abnormality. Small dermal lesion overlies anterior right breast, marked with skin marker. No abnormal calcifications. The axilla and skin contours are unremarkable. No significant changes. MM/MM tomosynthesis screening BI IMPRESSION: No mammographic evidence of malignancy. ASSESSMENT: BI-RADS 2: Benign RECOMMENDATION: Routine annual mammography screening. This patient's information was entered into a reminder system with a target due date for their next mammogram.
== END 2021-11-14 11:14 | disposition home or self-care (01) ==
LOC: HO.MAMMO 11:13
PROVIDERS: PCP Internal Medicine; Visit Provider Internal Medicine
DX: Z12.31 Encounter for screening mammogram for malignant neoplasm of breast (principal)
CPT/HCPCS: 77063; 77067

== ENCOUNTER → 2021-12-09 10:14 | Outpatient (BNVA) | payer OTHER, SELFPAY | PROVIDERS: PCP Internal Medicine; Visit Provider Anesthesiology | DX: G89.4 Chronic pain syndrome (principal); M47.816 Spondylosis without myelopathy or radiculopathy, lumbar region; M48.061 Spinal stenosis, lumbar region without neurogenic claudication; Z79.891 Long term (current) use of opiate analgesic | CPT/HCPCS: 99202 ==

== ENCOUNTER → 2022-05-15 10:28 | Outpatient (BNVA) | payer OTHER, SELFPAY | PROVIDERS: PCP Internal Medicine; Visit Provider Internal Medicine | DX: J45.909 Unspecified asthma, uncomplicated (principal) | CPT/HCPCS: 99212 ==

== ENCOUNTER 2022-08-14 11:40 | Outpatient (REF) | payer OTHER, SELFPAY ==
[2022-08-14 11:57] LABS: MANUAL DIFF FLAG NO
[2022-08-14 12:39] LABS: Basophils Absolute Auto 0.1 X10*3/uL (0.0-0.2); Basophils Percent Auto 0.7 % (0-2); Eosinophils Absolute Auto 0.2 X10*3/uL (0.0-0.4); Eosinophils Percent Auto 2.7 % (0-4); Hematocrit 35.4 % (37.0-47.0); Hemoglobin 10.8 g/dl (12.0-16.0); Imm Gran Abs Auto 0.03 X10*3/uL (0.00-0.03); Imm Gran Pct Auto 0.4 % (0.0-0.4); Lymphocytes Percent Auto 27.7 % (20-40); Mean Corpuscular HGB Conc 30.5 g/dl (31.0-35.0); Mean Corpuscular Hemoglobin 27.1 pg (27.0-33.0); Mean Corpuscular Volume 88.7 fL (80.0-98.0); Mean Platelet Volume 10.8 fL (9.4-12.3); Monocytes Absolute Auto 0.7 X10*3/uL (0.1-1.2); Monocytes Percent Auto 8.9 % (2-11); Neutrophils Absolute Auto 4.4 x10*3/uL (2.0-8.3); Neutrophils Percent Auto 59.6 % (45-73); Platelet Count 252 X10*3/uL (160-400); Red Blood Count 3.99 X10*6/uL (4.20-5.50); Red Cell Distribution Width 14.8 % (11.0-16.0); White Blood Count 7.3 X10*3/uL (4.8-10.8)
[2022-08-14 12:45] LABS: Appearance Urine Clear; Color Urine Yellow; Glucose Urine UA Negative (Negative); Leukocyte Esterase Urine Small (1+) (Negative); Nitrite Urine Negative (Negative); PH 5.5 (5.0-9.0); UMIC TRIGGER UA YES; Urine Blood Trace (Negative); Urine Ketones Negative (Negative); Urine Protein Negative (Neg-Trace)
[2022-08-14 12:51] LABS: Bacteria Urine 1+ (None Seen); Hyaline Casts Urine 0-2 /LPF (0-2); RBC Urine 0-2 /HPF (0-2)
[2022-08-14 13:02] LABS: Creatinine Urine 124.18 mg/dL; Microalbum/Creatinine Ratio Ur 21.7 ug/mg cr; Protein/Creatinine Ratio, Ur 0.06 (<0.2); Total Protein Urine Random 8 mg/dL (<12)
[2022-08-14 13:04] LABS: Albumin Level 3.9 g/dL (3.5-5.0); Anion Gap 12 (12-20); Blood Urea Nitrogen 32 mg/dL (9-16); Calcium 9.3 mg/dL (8.4-10.2); Carbon Dioxide 25 mmol/L (22-29); Chloride 111 mmol/L (96-108); Estimated Glomerular Filt Rate 31; Magnesium 1.9 mg/dL (1.6-2.6); Phosphorus 3.9 mg/dL (2.7-4.5); Potassium 4.7 mmol/L (3.3-5.1); Sodium 143 mmol/L (135-145)
[2022-08-14 13:18] LABS: Vitamin D 25-OH Total 35.8 ng/mL (>30)
[2022-08-18 14:23] LABS: Calcium (PTHI) 9.4 mg/dL (8.6-10.4); PTHI 122 pg/mL (16-77)
== END 2022-08-14 11:41 | disposition home or self-care (01) ==
LOC: HO.LAB 11:40
PROVIDERS: PCP Internal Medicine; Visit Provider Internal Medicine Nephrology
DX: I12.9 Hypertensive chronic kidney disease with stage 1 through stage 4 chronic kidney disease, or unspecified chronic kidney disease (principal); N18.32 Chronic kidney disease, stage 3b; R80.1 Persistent proteinuria, unspecified
CPT/HCPCS: 36415; 80051; 81001; 82040; 82043; 82306; 82310; 82565; 83735; 83970; 84100; 84156; 84520; 85025; 87086

== ENCOUNTER 2022-12-05 | Outpatient (REF) | payer OTHER, SELFPAY ==
[2022-12-10 23:43] LABS: C. trachomatis RNA TMA NOT DETECTED (NOT DETECTED); N. gonorrhoeae RNA TMA NOT DETECTED (NOT DETECTED)
[2022-12-11 00:03] LABS: Trichomonas (NAAT) NOT DETECTED (NOT DETECTED)
[2022-12-11 01:18] LABS: HPV mRNA E6/E7 rflx Not Detected (Not Detected)
== END 2022-12-05 00:01 | disposition home or self-care (01) ==
LOC: HO.LNP
PROVIDERS: Visit Provider Internal Medicine
DX: Z12.4 Encounter for screening for malignant neoplasm of cervix (principal)
CPT/HCPCS: 87491; 87591; 87624; 87661; 88142

== ENCOUNTER 2022-12-08 11:23 | Outpatient (REF) | payer OTHER, SELFPAY | END 2022-12-08 11:24 | disposition home or self-care (01) | LOC: HO.LNP 11:23 | PROVIDERS: Visit Provider Internal Medicine | DX: Z13.89 Encounter for screening for other disorder (principal) ==

== ENCOUNTER 2022-12-31 10:38 | Outpatient (AMB) | payer OTHER, SELFPAY ==
--- NOTE | 2022-12-31 11:15 | MHC.OFFVIS ---
Intake Intake Visit Reasons: Stress incontinence/hematuria- follow up Intake Note: Patient is present for follow up stress incontinence/hematuria Urology Medications: oxybutynin Blood Thinner: none PVR: 122ml's Reporting Developer Required: Yes Information Interpreted: non-clinical & clinical Accompanied by: Self / Same As Patient Allergies No Known Allergies Allergy (Verified 01/01/23 09:11) Medication List - Last Reconciled 01/01/23 by ESME Jerome- albuterol sulfate 0.63 mg inhalation Q4-6H PRN albuterol sulfate 90 mcg/actuation 2 puffs inhalation Q4-6H PRN cholecalciferol (vitamin D3) 50 mcg PO DAILY cyclobenzaprine 10 mg PO TID PRN diazepam (Valium) 10 mg PO TID PRN docusate sodium (Colace) 200 mg (2 x 100 mg) PO BEDTIME fluticasone propion-salmeterol 250-50 mcg/dose (Wixela Inhub) ea inhalation fluticasone propionate 50 mcg/actuation 2 sprays intranasal DAILY gabapentin 300 mg PO TID hydrochlorothiazide 25 mg PO DAILY hydroxyzine HCl 25 mg PO BID PRN ipratropium-albuterol 20-100 mcg/actuation 1 puff inhalation QID lisinopril 5 mg PO DAILY loratadine 10 mg PO DAILY montelukast 10 mg PO DAILY naloxone 4 mg/actuation 1 spray intranasal ONCE PRN ondansetron HCl (Zofran) 4 mg PO Q6H PRN oxybutynin chloride ER 10 mg PO DAILY 90 days oxycodone-acetaminophen 10-325 mg 1 tab PO Q8H PRN pantoprazole 40 mg PO DAILY tizanidine 2 mg PO TID PRN 30 days HPI HPI Comments History of Present Illness Details Juanita is a very pleasant 52-year-old Turkish-speaking female patient of Dr. Dwyer. She has a past medical history of renal cysts, allergic rhinitis, obesity, carpal tunnel, arthritis, renal insufficiency, COPD, asthma, and hypertension. She presents to the office today for follow-up of her renal cysts, and overactive bladder. In discussion with the patient today she reports to be doing and feeling well. When asked she reports to be happy with current voiding parameters on oxybutynin 10 mg daily. She does report very infrequent episodes of urinary urge incontinence. She otherwise denies nocturia, hematuria, dysuria, foul smelling urine, changes to urinary stream, flank pain, fever, and or chills. Discussed obtaining retroperitoneal ultrasound for further assessment evaluation. No recent imaging to review history of renal cyst. In office urinalysis results reviewed with the patient today. PVR 122 mL. Discussed at length affects of incomplete bladder emptying. Discussed possible incomplete bladder emptying related to oxybutynin. Patient will attempt double voiding. Discussed discontinuation of oxybutynin due to incomplete bladder emptying however patient would like to attempt lifestyle modifications to assist with incomplete bladder emptying prior. She otherwise denies any bothersome urinary issues or concerns at this time. [facility] Medical History Renal cyst Hematuria Allergic rhinitis Cough Family history of colon cancer in father Obesity Schwannoma of nerve of neck Carpal tunnel syndrome Arthritis Renal insufficiency COPD (chronic obstructive pulmonary disease) Asthma HTN (hypertension) Surgical History History of esophagogastroduodenoscopy (EGD) Hx of tubal ligation History of sleeve gastrectomy Family History Father No problems noted. Mother Diabetes Hypertension Son No problems noted. Son No problems noted. Brother No problems noted. Brother Diabetes Sister No problems noted. Social History Household Members: Spouse Alcohol intake: never Patient Tobacco Use Status: Never used Tobacco Current occupational status: disabled Review of Systems Const Reports no additional complaints Eyes Reports no additional complaints ENT Reports no additional complaints Card Reports as per HPI Resp Reports as per HPI GI Reports no additional complaints Reports as per HPI Musc Reports as per HPI Neuro Reports no additional complaints Psych Reports no additional complaints Endo Reports no additional complaints Physical Exam Const General: cooperative, comfortable, no acute distress, well developed, alert and awake Orientation/consciousness: patient oriented x3 HEENT Head: Yes normal to inspection, Yes normocephalic and Yes atraumatic Ears: hearing grossly normal bilaterally Eyes General: appearance normal, both eyes and all related structures Neck Neck: Yes normal visual inspection and Yes trachea midline Chest Chest palpation & inspection: normal inspection of the chest Resp Effort & Inspection: normal respiratory effort and able to speak in complete sentences Cardio Rate: regular rate GI Inspection: Yes normal to inspection General: Yes no CVA tenderness Back/Spine/Pelvis Back: no CVA tenderness Skin General skin exam: no rashes or lesions noted Neuro General: patient oriented x3 Extrem General: Yes normal to inspection Psych Appearance: grossly normal and well kempt Mental Status: mental status grossly normal Speech and movement: Normal speech and movement present and Clear speech present Affect: normal affect Attitude: cooperative Thought process: Normal thought process present Thought content: Normal thought content present Insight: Fair insight present (Psych) Judgement: Fair judgement present (Psych) Office Procedures Post Void Residual Post Residual Void Post Void Residual (PVR): 122 [id number] Void Residual by ultrasound Results AMB Urinalysis, Automated UA Leukoctes 0 Gerson/uL Last Edit by GMI Ratings on 12/31/22 11:34 UA Nitrite Negative Last Edit by GMI Ratings on 12/31/22 11:34 UA Urobilinogen 0.2 mg/dL Last Edit by GMI Ratings on 12/31/22 11:34 UA Protein 0 mg/dL Last Edit by GMI Ratings on 12/31/22 11:34 UA pH 6.0 Last Edit by GMI Ratings on 12/31/22 11:34 UA Blood 0 Cortez/uL Last Edit by GMI Ratings on 12/31/22 11:34 UA Specific [place] 1.015 Last Edit by GMI Ratings on 12/31/22 11:34 UA Ketone Negative Last Edit by GMI Ratings on 12/31/22 11:34 UA Bilirubin 0 mg/dL Last Edit by GMI Ratings on 12/31/22 11:34 UA Glucose 0 mg/dL Last Edit by GMI Ratings on 12/31/22 11:34 Results Reviewed Results Reviewed: Laboratory Last Values Urine pH (Auto) 6.0 12/31/22 11:21 Specific [place] (Auto) 1.015 12/31/22 11:21 Urine Protein (Auto) 0 mg/dL 12/31/22 11:21 Glucose (UA)(Auto) 0 mg/dL 12/31/22 11:21 Urine Ketones (Auto) Negative 12/31/22 11:21 Urine Blood (Auto) 0 [place]/uL 12/31/22 11:21 Urine Nitrite (Auto) Negative 12/31/22 11:21 Urine Bilirubin (Auto) 0 mg/dL 12/31/22 11:21 Urine Urobilinogen (Auto) 0.2 mg/dL 12/31/22 11:21 Leukocyte Esterase (Auto) 0 Gerson/uL 12/31/22 11:21 Assessment & Plan Assessment & Plan (1) Renal cyst: Code(s): N28.1 - Cyst of kidney, acquired (2) Lower urinary tract symptoms: Code(s): R39.9 - Unspecified symptoms and signs involving the genitourinary system (3) Incomplete bladder emptying: Code(s): R33.9 - Retention of urine, unspecified Plan In office urinalysis results reviewed with the patient today; as noted above. PVR 122ml's Patient reports be happy with current voiding parameters on 10mg of oxybutynin daily; refill provided. Discussed double voiding to assist with incomplete bladder emptying. Discussed at length causes and affects of incomplete bladder emptying. Will obtain retroperitoneal ultrasound for further assessment evaluation. Follow-up in 3 months with PVR and imaging to be completed prior; or sooner with any issues, concerns, and or questions. Orders: Orders AMB Urinalysis Automated 12/31/22 Z13.9 - Encounter for screening, unspecified AMB Post Void Residual by ultrasound 12/31/22 Z13.9 - Encounter for screening, unspecified US retroperitoneal comp 12/31/22 N28.1 - Cyst of kidney, acquired, R39.9 - Unspecified symptoms and signs involving the genitourinary system Medications: Changed From oxybutynin chloride ER 10 mg PO DAILY 30 days 30 tabs 1RF incont To oxybutynin chloride ER 10 mg PO DAILY 90 days 90 tabs 0RF incont Coding Level of Care Code Est Pt Level 3 (09173) Diagnoses Renal cyst N28.1 Lower urinary tract symptoms R39.9 Incomplete bladder emptying R33.9 CPT Codes Post Residual Void - PVR CPT Code: 30562-Rbjt Void Residual by ultrasound ([id number])
== END 2022-12-31 12:09 | disposition home or self-care (01) ==
PROVIDERS: PCP Internal Medicine; Visit Provider Nurse Practitioner Family
DX: N28.1 Cyst of kidney, acquired (principal); R39.9 Unspecified symptoms and signs involving the genitourinary system; R33.9 Retention of urine, unspecified
CPT/HCPCS: 99213

== ENCOUNTER → 2022-12-31 10:38 | Outpatient (BNVA) | payer OTHER, SELFPAY | PROVIDERS: PCP Internal Medicine; Visit Provider Nurse Practitioner Family | DX: N28.1 Cyst of kidney, acquired (principal); R39.9 Unspecified symptoms and signs involving the genitourinary system; R33.9 Retention of urine, unspecified | CPT/HCPCS: 51798; 81003; 99212 ==

== ENCOUNTER 2023-03-23 09:39 | Outpatient (REF) | payer OTHER, SELFPAY ==
--- NOTE | ~2023-03-23 | US_ITS ---
EXAMINATION: US RETROPERITONEAL COMPLETE (RENAL) CLINICAL INFORMATION: Cyst of kidney, acquired. COMPARISON: Renal ultrasound 05/15/2021. CT abdomen and pelvis without and with contrast 04/08/2017. TECHNIQUE: Real-time imaging of the kidneys and bladder. FINDINGS: RIGHT KIDNEY: 9.4 x 4.0 x 4.6 cm (SAG x AP x TRV). The kidney is normal in size, contour, and echogenicity. Renal cortical thickness is normal. No renal calculi or hydronephrosis. 0.6 cm simple cyst in the mid kidney appears to correspond to the cyst that measured up to 0.9 cm on 05/15/2021. A simple cyst of the lateral interpolar region measures up to 0.7 cm. No renal imaging follow-up is recommended for simple cysts. No solid renal mass. LEFT KIDNEY: 9.1 x 4.1 x 4.5 cm (SAG x AP x TRV). The kidney is normal in size, contour, and echogenicity. Renal cortical thickness is normal. No calculi or focal parenchymal lesions. No hydronephrosis. BLADDER: Normal wall thickness. Bilateral ureteral jets are demonstrated. Prevoid bladder volume is 170 mL. Postvoid bladder volume is approximately 1 mL. US/US retroperitoneal comp IMPRESSION: * Small benign cysts of the right kidney. * Urinary bladder is normal.
== END 2023-03-23 09:40 | disposition home or self-care (01) ==
LOC: HO.US 09:39
PROVIDERS: PCP Internal Medicine; Visit Provider Nurse Practitioner Family
DX: N28.1 Cyst of kidney, acquired (principal); R39.9 Unspecified symptoms and signs involving the genitourinary system
CPT/HCPCS: 76770

== ENCOUNTER 2023-04-07 11:45 | Outpatient (AMB) | payer OTHER, SELFPAY ==
--- NOTE | 2023-04-07 11:36 | MHC.OFFVISWM ---
Intake VS Expanded 04/07/23 11:43 Height 5 ft 1 in Weight 189 lb BMI 35.7 Intake Visit Reasons: (TELEPHONE) PO LSG 07/23/17 Allergies No Known Allergies Allergy (Verified 01/01/23 09:11) Medication List - Last Reconciled 04/07/23 by JOSE ROBERTO Sosa albuterol sulfate 0.63 mg inhalation Q4-6H PRN albuterol sulfate 90 mcg/actuation 2 puffs inhalation Q4-6H PRN cholecalciferol (vitamin D3) 50 mcg PO DAILY cyclobenzaprine 10 mg PO TID PRN diazepam (Valium) 10 mg PO TID PRN docusate sodium (Colace) 200 mg (2 x 100 mg) PO BEDTIME fluticasone propion-salmeterol 250-50 mcg/dose (Wixela Inhub) ea inhalation fluticasone propionate 50 mcg/actuation 2 sprays intranasal DAILY gabapentin 300 mg PO TID hydrochlorothiazide 25 mg PO DAILY hydroxyzine HCl 25 mg PO BID PRN ipratropium-albuterol 20-100 mcg/actuation 1 puff inhalation QID lisinopril 5 mg PO DAILY loratadine 10 mg PO DAILY montelukast 10 mg PO DAILY naloxone 4 mg/actuation 1 spray intranasal ONCE PRN ondansetron HCl (Zofran) 4 mg PO Q6H PRN oxybutynin chloride ER 10 mg PO DAILY 90 days oxycodone-acetaminophen 10-325 mg 1 tab PO Q8H PRN pantoprazole 40 mg PO DAILY tizanidine 2 mg PO TID PRN 30 days HPI HPI Comments History of Present Illness Details This?is a?53?yo female who is s/p LSG 07/23/2017. Presents for 4 year 8 month post op visit. Weight at last visit on 02/11/2021 was 189.8 pounds with a BMI of 35.9, weight today is same.? No complaints of nausea, emesis, abdominal pain or reflux, or constipation. Pt remains interested in skin removal surgery. Present meal plan includes: doesn't eat much coffee in the morning tuna or sandwich for lunch potatoes with meat or chicken breast with salad Exercise routine includes: has chronic conditions that make exercise difficult [facility] Medical History Renal cyst Hematuria Allergic rhinitis Cough Family history of colon cancer in father Obesity Schwannoma of nerve of neck Carpal tunnel syndrome Arthritis Renal insufficiency COPD (chronic obstructive pulmonary disease) Asthma HTN (hypertension) Surgical History History of esophagogastroduodenoscopy (EGD) Hx of tubal ligation History of sleeve gastrectomy Family History Father No problems noted. Mother Diabetes Hypertension Son No problems noted. Son No problems noted. Brother No problems noted. Brother Diabetes Sister No problems noted. Social History Household Members: Spouse Alcohol intake: never Patient Tobacco Use Status: Never used Tobacco Current occupational status: disabled Assessment & Plan Assessment & Plan (1) Obesity: Code(s): E66.9 - Obesity, unspecified (2) History of sleeve gastrectomy: Comment: 07-23-[address] Bryant Code(s): Z90.3 - Acquired absence of stomach [part of] Plan Needs more protein in meal plan. Recommended protein water in AM- pt agreeable to trying this For lunch- [employer] brand shake Dinner- meat/veg/salad Snack- bar Labs ordered. RTC in July for annual visit. Photos of protein castellanos and shake options texted to pt. Meal plan texted to pt and encouraged her to reach out between appts with any questions. Patient is obese and is not considered stable at this time. I spent a total of 30 minutes reviewing/updating records, examining the patient and counseling the patient on weight management as detailed above. Orders: Orders Insulin Today E66.9 - Obesity, unspecified, Z90.3 - Acquired absence of stomach [part of] Complete Blood Count Auto Diff Today E66.9 - Obesity, unspecified, Z90.3 - Acquired absence of stomach [part of] Lipid Panel Today E66.9 - Obesity, unspecified, Z90.3 - Acquired absence of stomach [part of] IRON PROFILE Today E66.9 - Obesity, unspecified, Z90.3 - Acquired absence of stomach [part of] C Reactive Protein Today E66.9 - Obesity, unspecified, Z90.3 - Acquired absence of stomach [part of] Vitamin B1 Today E66.9 - Obesity, unspecified, Z90.3 - Acquired absence of stomach [part of] Vitamin D 25-OH Total Today E66.9 - Obesity, unspecified, Z90.3 - Acquired absence of stomach [part of] Hemoglobin A1c Today E66.9 - Obesity, unspecified, Z90.3 - Acquired absence of stomach [part of] Comprehensive Met. Panel Today E66.9 - Obesity, unspecified, Z90.3 - Acquired absence of stomach [part of] Vitamin B12 and Folate Today E66.9 - Obesity, unspecified, Z90.3 - Acquired absence of stomach [part of] Zinc Today E66.9 - Obesity, unspecified, Z90.3 - Acquired absence of stomach [part of] Vitamin A Today E66.9 - Obesity, unspecified, Z90.3 - Acquired absence of stomach [part of] TSH reflex Free T4 Today E66.9 - Obesity, unspecified, Z90.3 - Acquired absence of stomach [part of] Ferritin Today E66.9 - Obesity, unspecified, Z90.3 - Acquired absence of stomach [part of] Telehealth Telehealth Location of provider rendering services: practice address Location of patient: address on file Patient Identification confirmed using: Name, : Yes Telehealth method: voice only Patient verbally consented to treatment: Yes Patient verbally consented to billing insurance company: Yes Patient informed of any privacy concerns related to visit: Yes Minutes spent on Phone/Video with Pt.: 25 Coding Level of Care Code Est Pt Level 4 (61397) Diagnoses Obesity E66.9 History of sleeve gastrectomy Z90.3
[2023-04-07 11:43] VITALS: BMI 35.7
== END 2023-04-07 12:02 | disposition home or self-care (01) ==
LOC: HO.HBS 11:45
PROVIDERS: PCP Internal Medicine; Visit Provider Physician Assistant Surgical
DX: E66.9 Obesity, unspecified (principal); Z90.3 Acquired absence of stomach [part of]
CPT/HCPCS: 99214

== ENCOUNTER → 2023-04-07 11:45 | Outpatient (BNVA) | payer OTHER, SELFPAY | PROVIDERS: PCP Internal Medicine; Visit Provider Physician Assistant Surgical | DX: E66.9 Obesity, unspecified (principal); Z98.84 Bariatric surgery status; Z90.3 Acquired absence of stomach [part of] | CPT/HCPCS: 99212 ==

== ENCOUNTER 2023-04-16 09:23 | Outpatient (REF) | payer OTHER, SELFPAY ==
[2023-04-16 09:47] LABS: MANUAL DIFF FLAG NO
[2023-04-16 10:07] LABS: Basophils Percent Auto 0.6 % (0-2); Eosinophils Absolute Auto 0.1 X10*3/uL (0.0-0.4); Eosinophils Percent Auto 0.9 % (0-4); Hematocrit 33.6 % (37.0-47.0); Hemoglobin 10.2 g/dl (12.0-16.0); Imm Gran Abs Auto 0.04 X10*3/uL (0.00-0.03); Imm Gran Pct Auto 0.6 % (0.0-0.4); Lymphocytes Absolute Auto 1.8 X10*3/uL (1.2-4.9); Lymphocytes Percent Auto 28.1 % (20-40); Mean Corpuscular HGB Conc 30.4 g/dl (31.0-35.0); Mean Corpuscular Hemoglobin 26.7 pg (27.0-33.0); Mean Platelet Volume 10.5 fL (9.4-12.3); Monocytes Absolute Auto 0.6 X10*3/uL (0.1-1.2); Monocytes Percent Auto 9.3 % (2-11); Neutrophils Absolute Auto 3.8 x10*3/uL (2.0-8.3); Neutrophils Percent Auto 60.5 % (45-73); Platelet Count 284 X10*3/uL (160-400); Red Blood Count 3.82 X10*6/uL (4.20-5.50); Red Cell Distribution Width 14.9 % (11.0-16.0); White Blood Count 6.3 X10*3/uL (4.8-10.8)
[2023-04-16 10:19] LABS: Estimated Average Glucose 100 mg/dL; Hemoglobin A1c % 5.1 % (<6.0)
[2023-04-16 10:40] LABS: Alanine Aminotransferase 15 U/L (0-31); Albumin Level 3.8 g/dL (3.5-5.0); Alkaline Phosphatase 73 U/L (39-117); Anion Gap 11 (12-20); Aspartate Amino Transferase 19 U/L (5-31); Bilirubin Total 0.3 mg/dL (0.0-1.0); Blood Urea Nitrogen 33 mg/dL (9-16); C Reactive Protein 0.18 mg/dL (< or = 0.50); Calcium 9.3 mg/dL (8.4-10.2); Carbon Dioxide 24 mmol/L (22-29); Chloride 113 mmol/L (96-108); Cholesterol 197 mg/dL (<200); Estimated Glomerular Filt Rate 34; Glucose Random 96 mg/dL (60-115); HDL Cholesterol 63 mg/dL (>40); Iron 63 mcg/dL (30-160); LDL Cholesterol Calculated 113 mg/dL (<100); Percent Iron Saturation 29 % (15-50); Potassium 4.5 mmol/L (3.3-5.1); Sodium 143 mmol/L (135-145); Total Iron Binding Capacity 221 mcg/dL (228-428); Total Protein 6.8 g/dL (6.5-8.0); Triglycerides 107 mg/dL (<150); Unsaturated Iron Binding 158 ug/dL
[2023-04-16 11:04] LABS: Ferritin 64 ng/mL (10-250); Insulin 6 uU/mL (2-29); TSH reflex Free T4 0.84 uIU/mL (0.32-4.0); Vitamin D 25-OH Total 39.6 ng/mL (>30)
[2023-04-16 11:07] LABS: Folate 8.7 ng/mL (> or = 4.0); Vitamin B12 488 pg/mL (200-900)
[2023-04-19 15:54] LABS: Zinc 68 mcg/dL (60-130)
[2023-04-20 17:33] LABS: Vitamin A 32 mcg/dL (38-98)
[2023-04-23 13:59] LABS: Vitamin B1 10 nmol/L (8-30)
== END 2023-04-16 09:24 | disposition home or self-care (01) ==
LOC: HO.LAB 09:23
PROVIDERS: Visit Provider Physician Assistant Surgical
DX: E66.9 Obesity, unspecified (principal); Z90.3 Acquired absence of stomach [part of]
CPT/HCPCS: 36415; 80053; 80061; 82306; 82607; 82728; 82746; 83036; 83525; 83540; 84425; 84443; 84590; 84630; 85025; 86140

== ENCOUNTER 2023-05-11 12:06 | Outpatient (REF) | payer OTHER, SELFPAY ==
[2023-05-11 12:23] LABS: MANUAL DIFF FLAG NO
[2023-05-11 13:00] LABS: Basophils Percent Auto 0.4 % (0-2); Eosinophils Absolute Auto 0.1 X10*3/uL (0.0-0.4); Eosinophils Percent Auto 0.7 % (0-4); Hematocrit 34.9 % (37.0-47.0); Hemoglobin 10.7 g/dl (12.0-16.0); Imm Gran Abs Auto 0.05 X10*3/uL (0.00-0.03); Imm Gran Pct Auto 0.7 % (0.0-0.4); Lymphocytes Percent Auto 25.9 % (20-40); Mean Corpuscular HGB Conc 30.7 g/dl (31.0-35.0); Mean Corpuscular Hemoglobin 26.8 pg (27.0-33.0); Mean Corpuscular Volume 87.5 fL (80.0-98.0); Mean Platelet Volume 10.2 fL (9.4-12.3); Monocytes Absolute Auto 0.7 X10*3/uL (0.1-1.2); Monocytes Percent Auto 9.4 % (2-11); Neutrophils Absolute Auto 4.8 x10*3/uL (2.0-8.3); Neutrophils Percent Auto 62.9 % (45-73); Platelet Count 283 X10*3/uL (160-400); Red Blood Count 3.99 X10*6/uL (4.20-5.50); White Blood Count 7.6 X10*3/uL (4.8-10.8)
[2023-05-11 13:27] LABS: Appearance Urine Cloudy; Color Urine Yellow; Glucose Urine UA Negative (Negative); Leukocyte Esterase Urine Small (1+) (Negative); Nitrite Urine Negative (Negative); PH 5.5 (5.0-9.0); Specific Gravity - Urine 1.015 (1.005-1.025); UMIC TRIGGER UA YES; Urine Blood Negative (Negative); Urine Ketones Negative (Negative); Urine Protein Negative (Neg-Trace)
[2023-05-11 13:37] LABS: Bacteria Urine 1+ (None Seen); Hyaline Casts Urine 0-2 /LPF (0-2); RBC Urine 0-2 /HPF (0-2)
[2023-05-11 13:45] LABS: Albumin Level 3.9 g/dL (3.5-5.0); Anion Gap 12 (12-20); Blood Urea Nitrogen 39 mg/dL (9-16); Calcium 9.4 mg/dL (8.4-10.2); Carbon Dioxide 25 mmol/L (22-29); Chloride 111 mmol/L (96-108); Estimated Glomerular Filt Rate 27; Magnesium 1.9 mg/dL (1.6-2.6); Phosphorus 3.8 mg/dL (2.7-4.5); Potassium 4.6 mmol/L (3.3-5.1); Sodium 143 mmol/L (135-145)
[2023-05-11 13:52] LABS: Creatinine Urine 81.46 mg/dL; Microalbum/Creatinine Ratio Ur 7.3 ug/mg cr (<30); Total Protein Urine Random < 7 mg/dL (<12)
[2023-05-11 14:05] LABS: Vitamin D 25-OH Total 37.4 ng/mL (>30)
== END 2023-05-11 12:07 | disposition home or self-care (01) ==
LOC: HO.LAB 12:06
PROVIDERS: PCP Internal Medicine; Visit Provider Internal Medicine Nephrology
DX: I12.9 Hypertensive chronic kidney disease with stage 1 through stage 4 chronic kidney disease, or unspecified chronic kidney disease (principal); N18.32 Chronic kidney disease, stage 3b; R82.90 Unspecified abnormal findings in urine
CPT/HCPCS: 36415; 80051; 81001; 81003; 82040; 82043; 82306; 82310; 82565; 82570; 83735; 83970; 84100; 84156; 84520; 85025; 87086

== ENCOUNTER 2024-01-18 11:53 | Outpatient (AMB) | payer OTHER, SELFPAY ==
--- NOTE | 2024-01-18 11:55 | MHC.OFFVISWM ---
VS Expanded 01/18/24 12:05 BP 116/60 Blood Pressure Location Rt brachial Blood Pressure Position Sitting Pulse 88 Pulse Source Pulse Oximeter Temp 97.3 F Temperature Source Temporal Artery Scan Pulse Oximetry 97 Oxygen Delivery Method Room Air Height 5 ft 1 in Weight 192 lb 12.8 oz BMI 36.4 Body Fat % 35.9 Body Fat Mass 69.2 Fat Free Mass 123.4 Visceral Fat Rating 10.0 Body Water % 45.5 Body Water Mass 87.8 Muscle Mass/Score 117.2 Basal Metabolic Rate/Score 1,673 Intake Visit Reasons: OV PO LSG 01/18/21 Folder And Notcher Required: Yes Folder And Notcher Name: [id number] Information Interpreted: clinical only Allergies No Known Allergies Allergy (Verified 01/18/24 11:59) Medication List - Last Reconciled 01/18/24 by JOSE ROBERTO Sosa albuterol sulfate 0.63 mg inhalation Q4-6H PRN albuterol sulfate 90 mcg/actuation 2 puffs inhalation Q4-6H PRN cholecalciferol (vitamin D3) 50 mcg PO DAILY cyclobenzaprine 10 mg PO TID PRN diazepam (Valium) 10 mg PO TID PRN docusate sodium (Colace) 200 mg (2 x 100 mg) PO BEDTIME ferrous sulfate 325 mg PO DAILY fluticasone propion-salmeterol 250-50 mcg/dose (Wixela Inhub) ea inhalation fluticasone propionate 50 mcg/actuation 2 sprays intranasal DAILY gabapentin 300 mg PO TID hydrochlorothiazide 25 mg PO DAILY hydroxyzine HCl 25 mg PO BID PRN ipratropium-albuterol 20-100 mcg/actuation 1 puff inhalation QID lisinopril 5 mg PO DAILY loratadine 10 mg PO DAILY montelukast 10 mg PO DAILY naloxone 4 mg/actuation 1 spray intranasal ONCE PRN ondansetron HCl (Zofran) 4 mg PO Q6H PRN oxybutynin chloride ER 10 mg PO DAILY 90 days oxycodone-acetaminophen 10-325 mg 1 tab PO Q8H PRN pantoprazole 40 mg PO DAILY tizanidine 2 mg PO TID PRN 30 days vitamin A palmitate 10,000 units PO DAILY HPI Comments Details: This?is a?53?yo female who is s/p LSG 07/23/2017. Presents for 6.5 year post op visit. Weight at last visit on 04/07/2023 was 189 pounds with a BMI of 35.7, weight today is 192.8 pounds, representing a 3.8 pound weight gain with a BMI today of 36.4.? No complaints of nausea, emesis, abdominal pain or reflux, or constipation. Pt has had asthma/COPD exacerbations. Remains interested in skin removal Present meal plan includes: given at last visit Recommended protein water in AM- pt agreeable to trying this For lunch- Celebrate brand shake Dinner- meat/veg/salad Snack- bar pt reports eating meat and eggs, nothing more did not like protein castellanos, had liked Optivia shakes in the past does not feel hungry during the day, but at 10pm feels hungry/anxious Exercise routine includes: has chronic conditions that make exercise difficult Have you been diagnosed with reflux (GERD)? yes Score 0-5: 0=no symptoms, 1=noticeable but not bothersome (slight or occasional), 2=noticeable, bothersome but not daily, 3=bothersome and daily, 4=affects daily activities, 5=incapacitating, unable to do daily activities How bad is the heartburn: 3 Heartburn when lying down: 2 Heartburn when standing up: 2 Heartburn after meals: 2 Does heartburn change your diet: 1 Does heartburn wake you up from sleep: 1 Do you have difficulty swallowin Do you have pain with swallowin If you take medication for reflux, does this affect your daily life: 0 Total score: 11 PFSH Medical History Renal cyst Hematuria Allergic rhinitis Cough Family history of colon cancer in father Obesity Schwannoma of nerve of neck Carpal tunnel syndrome Arthritis Renal insufficiency COPD (chronic obstructive pulmonary disease) Asthma HTN (hypertension) Surgical History History of esophagogastroduodenoscopy (EGD) Hx of tubal ligation History of sleeve gastrectomy Family History Father No problems noted. Mother Diabetes Hypertension Son No problems noted. Son No problems noted. Brother No problems noted. Brother Diabetes Sister No problems noted. Social History Household Members: Spouse Alcohol intake: never Patient Tobacco Use Status: Never used Tobacco Current occupational status: disabled Assessment & Plan Assessment & Plan (1) Obesity: Code(s): E66.9 - Obesity, unspecified Category: Medical (2) History of sleeve gastrectomy: Comment: 07-23-[address] Bryant Code(s): Z90.3 - Acquired absence of stomach [part of] Category: Surgical Plan Discussed the importance of an appropriate meal plan for weight loss, especially considering exercise is difficult for her. Goal 75-80g protein per day, pt not getting that currently. Pt has used Pure Protein bars in the past, willing to try Pure powder or Premier. Take 1 protein shake per day plus one bar. Can have one small meal of 2 eggs and one small meal of meat/veg. Pt to not rely on hunger cues, we discussed that they can be unreliable in telling her when to eat as she is not getting enough protein currently. Discussed rquirements for skin removal surgery- additional weight loss needed first. She asked about GLP1 agonists- I encouraged her to check with her PCP's office, can provide our records if requested. RTC 6 months for annual. I spent a total of 30 minutes reviewing/updating records, examining the patient and counseling the patient on weight management as detailed above.
[2024-01-18 12:05] VITALS: BP 116/60; PULSE 88; TEMP 36.3; O2SAT 97; BMI 36.4
== END 2024-01-18 12:27 | disposition home or self-care (01) ==
PROVIDERS: PCP Internal Medicine; Visit Provider Physician Assistant Surgical
DX: E66.9 Obesity, unspecified (principal); Z90.3 Acquired absence of stomach [part of]
CPT/HCPCS: 99214; G2211

== ENCOUNTER → 2024-01-18 11:53 | Outpatient (BNVA) | payer OTHER, SELFPAY | PROVIDERS: PCP Internal Medicine; Visit Provider Physician Assistant Surgical | DX: E66.9 Obesity, unspecified (principal); Z68.36 Body mass index [BMI] 36.0-36.9, adult; Z90.3 Acquired absence of stomach [part of] | CPT/HCPCS: 99212 ==

== ENCOUNTER 2024-02-01 15:57 | Outpatient (REF) | payer OTHER, SELFPAY ==
[2024-02-01 16:28] LABS: MANUAL DIFF FLAG NO
[2024-02-01 17:13] LABS: Basophils Percent Auto 0.4 % (0-2); Eosinophils Absolute Auto 0.1 X10*3/uL (0.0-0.4); Eosinophils Percent Auto 0.7 % (0-4); Hematocrit 33.7 % (37.0-47.0); Hemoglobin 10.5 g/dl (12.0-16.0); Imm Gran Abs Auto 0.06 X10*3/uL (0.00-0.03); Imm Gran Pct Auto 0.6 % (0.0-0.4); Lymphocytes Absolute Auto 1.9 X10*3/uL (1.2-4.9); Lymphocytes Percent Auto 19.8 % (20-40); Mean Corpuscular HGB Conc 31.2 g/dl (31.0-35.0); Mean Corpuscular Hemoglobin 26.9 pg (27.0-33.0); Mean Corpuscular Volume 86.4 fL (80.0-98.0); Monocytes Absolute Auto 0.9 X10*3/uL (0.1-1.2); Neutrophils Absolute Auto 6.6 x10*3/uL (2.0-8.3); Neutrophils Percent Auto 69.5 % (45-73); Platelet Count 229 X10*3/uL (160-400); Red Cell Distribution Width 14.3 % (11.0-16.0); White Blood Count 9.5 X10*3/uL (4.8-10.8)
[2024-02-01 17:14] LABS: Appearance Urine Clear; Color Urine Yellow; Glucose Urine UA Negative (Negative); Leukocyte Esterase Urine Moderate (2+) (Negative); Nitrite Urine Negative (Negative); PH 5.5 (5.0-9.0); Specific Gravity - Urine 1.015 (1.005-1.025); UMIC TRIGGER UA YES; Urine Blood Negative (Negative); Urine Ketones Negative (Negative); Urine Protein Negative (Neg-Trace)
[2024-02-01 17:20] LABS: Bacteria Urine 1+ (None Seen); Hyaline Casts Urine 0-2 /LPF (0-2); RBC Urine 0-2 /HPF (0-2)
[2024-02-01 17:47] LABS: Anion Gap 9 (12-20); Blood Urea Nitrogen 32 mg/dL (9-16); Calcium 9.4 mg/dL (8.4-10.2); Carbon Dioxide 24 mmol/L (22-29); Chloride 110 mmol/L (96-108); Estimated Glomerular Filt Rate 28; Phosphorus 2.9 mg/dL (2.7-4.5); Potassium 4.1 mmol/L (3.3-5.1); Sodium 139 mmol/L (135-145)
[2024-02-01 18:03] LABS: Vitamin D 25-OH Total 38.6 ng/mL (>30)
[2024-02-01 19:02] LABS: Creatinine Urine 83.08 mg/dL; Microalbum/Creatinine Ratio Ur 10.8 ug/mg cr (<30); Total Protein Urine Random < 7 mg/dL (<12)
== END 2024-02-01 15:58 | disposition home or self-care (01) ==
LOC: HO.LAB 15:57
PROVIDERS: PCP Internal Medicine; Visit Provider Internal Medicine Nephrology
DX: N18.4 Chronic kidney disease, stage 4 (severe) (principal); N02.8 Recurrent and persistent hematuria with other morphologic changes
CPT/HCPCS: 36415; 80051; 81001; 82040; 82043; 82306; 82310; 82565; 82570; 83735; 83970; 84100; 84156; 84520; 85025

== ENCOUNTER 2024-02-24 12:21 | Outpatient (REF) | payer OTHER, SELFPAY | END 2024-02-24 12:22 | disposition home or self-care (01) | LOC: HO.MAMMO 12:21 | PROVIDERS: PCP Internal Medicine; Visit Provider Internal Medicine | DX: Z12.31 Encounter for screening mammogram for malignant neoplasm of breast (principal) | CPT/HCPCS: 77063; 77067 ==

== ENCOUNTER → 2024-02-24 12:45 | Outpatient (BNV) | payer OTHER, SELFPAY | PROVIDERS: PCP Internal Medicine; Visit Provider Internal Medicine | DX: Z12.31 Encounter for screening mammogram for malignant neoplasm of breast (principal) | CPT/HCPCS: 77063; 77067 ==

== ENCOUNTER 2024-04-13 16:02 | Outpatient (REF) | payer OTHER, SELFPAY ==
[2024-04-13 16:38] LABS: MANUAL DIFF FLAG NO
--- OUTSIDE RECORDS SUMMARY | 2024-04-13 16:38 | XMS_ITS | Encounter Summary ---
Author Organization [employer] Address [address] [place] [address] [address] [place] [address] Care Team Providers Care Gasoline Plant Operator Name Role Phone Diane Duff MD Primary Care Provide r Reason for Visit * Reason Onset Date Comments Durable Medical Equipment 01/14/2023 Nebuli zer Encounter Details Date Type Department Care Team ([facility] st Contact Info) Description 01/14/2023 Telephone [facility] MEDICINE [address] [place], [place] [phone] Diane Duff MD [address] [place], [place] [phone] Durable Medical Equipment (Nebulizer) Social History Tobacco Use Types Packs/Day Years Used Date Smoking Tobacco: Never Passive Smoke Exposure: Never Smokeless Tobacco: Never Depression Answer Date Recorded Patient Health Questionnaire-9 Score 7 08/06/2022 Housing Stability Answer Date Recorded What is your housing situation today? I have joan peters 12/23/[address] you li ve. Do you have problems with any of the following? None of the above 12/23/2022 Food Insecurity Answer Date Recorded Within the past 12 months, y ou worried that your food would run out before you got money to buy more: Never True 12/23/2022 Within the past 12 months,th e food you bought just didn't last and you didn't have enough money to get more: Never True Transportation Answer Date Recorded In the past 12 months, has l ack of transportation kept you from medical appts, meetings, work or from getting things needed for daily living? No 12/23/2022 Utilities Answer Date Recorded In the past 12 months, has t he electric, gas, oil or water [employer] threatened to shut off services in your home? No 12/23/2022 Depression Answer Date Recorded Patient Health Questionnaire-2 Score 3 08/06/2022 Comments Unknown Sex and Gender Information Value Date Recorded Sex Assigned at Female 01/06/2022 10:15 AM EDT Legal Sex Female 10:15 AM EDT Gender Identity Female 01/06/2022 10:15 AM EDT Sexual Orientation Straight 01/06/2022 10 :15 AM EDT documented as of this encounter Miscellaneous Notes * Telephone Encounter - Oralia Meza - 01/16/2023 3:15 PM EST An order for a Nebulizer has been generated and place on provider desk for review and signature. * Telephone Encounter - Flora Martin - 01/14/2023 11:32 AM EST Tc from pt requesting DME on nebulizer machine, pt sated the one she had broke. documented in this encounter Plan of Treatment Upcoming Encounters Date Type Department Care Team (Late st Contact Info) Description 05/16/2024 3:30 PM EDT Telemedicine [facility] MEDICINE [address] [place] [address] Diane Duff MD [address] [place] [address] 05/24/2024 3:30 PM EDT Office Visit [facility] OPTOMETRY [address] [place] [address] Tami Mcintosh, MERCEDES [address] [place] [address] 07/11/2024 10:00 AM EDT Clinical Support [facility] [address] [place] [address] Freya Lr RN documented as of this encounter Visit Diagnoses Not on filedocumented in this encounter Additional Health Concerns Assessment Noted Time PHQ-9 Depression Total Score: 7 08/07/19 23 4:00 PM EDT documented as of this encounter Care Teams Gasoline Plant Operator Relationship Specialty Start Date End Date Diane Duff MD [address] [place] [address] PCP - General Family Medicine 02/03/18 documented as of this encounter
--- OUTSIDE RECORDS SUMMARY | 2024-04-13 16:38 | XMS_ITS | Encounter Summary ---
Author Organization [employer] Address [address] [place] [address] [address]t [place] [address] Care Team Providers Care Hair And Makeup Designer Name Role Phone Diane Duff MD Primary Care Provide r Reason for Visit * Reason Comments Med Change Request Encounter Details Date Type Department Care Team ([facility] st Contact Info) Description 03/02/2023 Refill [facility] [address] [place] [address] Martha Avendano FNP Social History Tobacco Use Types Packs/Day Years [...] t he electric, gas, oil or water company threatened to shut off services in your home? No 12/23/2022 Depression Answer Date Recorded Patient Health Questionnaire-2 Score 3 08/06/2022 Comments Unknown Sex and Gender Information Value Date Recorded Sex Assigned at Female 01/06/2022 10:15 AM EDT Legal Sex Female 10:15 AM EDT Gender Identity Female 01/06/2022 10:15 AM EDT Sexual Orientation Straight 01/06/2022 10 :15 AM EDT documented as of this encounter Plan of Treatment Upcoming Encounters Date Type Department Care Team (Late st Contact Info) Description 05/16/2024 3:30 PM EDT Telemedicine [facility] [address] [place] [address] Diane Duff MD [address] [place] [address] 05/24/2024 3:30 PM EDT Office Visit [facility] OPTOMETRY [address] [place] [address] Arnaldo, Tami, OD [address] [place] [address] 07/11/2024 10:00 AM EDT Clinical Support [facility] [address] [place] [address] Freya Lr RN documented as of this encounter Visit Diagnoses Not on filedocumented in this encounter Additional Health Concerns Assessment Noted Time PHQ-9 Depression Total Score: 7 08/07/19 23 4:00 PM EDT documented as of this encounter Care Teams Hair And Makeup Designer Relationship Specialty Start Date End Date Diane Duff MD [address] [place] [phone] PCP - General Family Medicine 02/03/18 documented as of this encounter
--- OUTSIDE RECORDS SUMMARY | 2024-04-13 16:38 | XMS_ITS | Encounter Summary ---
Author Organization [email or web address] Address [address] [place] [address] 7[address] [place] [address] Care Team Providers Care Ground Intelligence Officer Name Role Phone Diane Duff MD Primary Care Provide r Reason for Visit * Reason Onset Date Comments Med Refill 10/20/2022 Encounter Details Date Type Department Care Team ([facility] st Contact Info) Description 10/20/2022 Telephone [facility] MEDICINE [address] [place], [place] [phone] Diane Duff MD [address] [place] [address] Med Refill Social History Tobacco Use Types Packs/Day Years Used Date Smoking Tobacco: Never Passive Smoke Exposure: Never Smokeless Tobacco: Never Alcohol Answer Date Recorded Frequency of Alcohol Consumption Not on file 01/14/2024 Average Number of Drinks Not on file 024 Frequency of Binge Drinking Not on file 09/2023 Score 0 01/14/2024 Depression Answer Date Recorded Patient Health Questionnaire-9 Score 9 01/14/2024 Patient Health Questionnaire-9 Score 9 01/14/2024 Last PHQ-9: Questionnaire Data Not on file 1 03/15/2023 Housing Stability Answer Date Recorded What is your housing situation today? I have joan peters 01/14/[address] you li ve. Do you have problems with any of the following? None of the above 01/14/2024 Food Insecurity Answer Date Recorded Within the past 12 months, y ou worried that your food would run out before you got money to buy more: Never True 01/14/2024 Within the past 12 months,th e food you bought just didn't last and you didn't have enough money to get more: Never True 09/2023 Transportation Answer Date Recorded In the past 12 months, has l ack of transportation kept you from medical appts, meetings, work or from getting things needed for daily living? No 01/14/2024 Utilities Answer Date Recorded In the past 12 months, has t he electric, gas, oil or water company threatened to shut off services in your home? No 01/14/2024 Depression Answer Date Recorded Patient Health Questionnaire-2 Score 4 01/14/2024 Internet Access Answer Date Recorded Internet Access Q1 No 01/14/2024 Internet Access Q2 I do not want or need it 09/2023 Comments Unknown Sex and Gender Information Value Date Recorded Sex Assigned at Female 01/06/2022 10:15 AM EDT Legal Sex Female 10:15 AM EDT Gender Identity Female 01/06/2022 10:15 AM EDT Sexual Orientation Straight 01/06/2022 10 :15 AM EDT documented as of this encounter Miscellaneous Notes * Telephone Encounter - Marcus Barnes - 10/20/2022 10:27 AM EDT Tc from pt requesting a refill for oxyCODONE-acetaminophen (Percocet) 10-325 MG tablet documented in this encounter Plan of Treatment Upcoming Encounters Date Type Department Care Team (Late st Contact Info) Description 05/16/2024 3:30 PM EDT Telemedicine [facility] MEDICINE [address] [place] [address] Diane Duff MD [address] [place] [address] 05/24/2024 3:30 PM EDT Office Visit [facility] OPTOMETRY [address] [place] [address] Tami Mcintosh, MERCEDES [address] [place] [address] 07/11/2024 10:00 AM EDT Clinical Support [facility] MED[facility]INE [address] [place] [address] Freya Lr, RN documented as of this encounter Visit Diagnoses Not on filedocumented in this encounter Additional Health Concerns Assessment Noted Time PHQ-9 Depression Total Score: 7 08/07/19 23 4:00 PM EDT documented as of this encounter Care Teams Ground Intelligence Officer Relationship Specialty Start Date End Date Diane Duff MD [address] [place] [address] PCP - General Family Medicine 02/03/18 documented as of this encounter
--- OUTSIDE RECORDS SUMMARY | 2024-04-13 16:38 | XMS_ITS | Encounter Summary ---
Author Organization [employer] Address [address] [facility] 7t [place] [address] Care Team Providers Care Cloth Layer Name Role Phone Diane Duff MD Primary Care Provide r Reason for Visit * Reason Comments Med Refill Encounter Details Date Type Department Care Team (Late st Contact Info) Description 08/14/2023 Refill [facility] MEDICINE [address] [place], [place] [phone] Diane Duff MD [address] [place] [address] Primary insomnia Social History Tobacco Use Types Packs/Day Years [...] Info) Description 05/16/2024 3:30 PM EDT Telemedicine [facility] MEDICINE [address] [place] [address] Diane Duff MD [address] [place] [address] 05/24/2024 3:30 PM EDT Office Visit [facility] OPTOMETRY [address] [place] [address] Arnaldo, Taim, OD [address] [place] [address] 07/11/2024 10:00 AM EDT Clinical Support [facility] MEDICINE [address] [place] [address] Freya Lr, TROY documented as of this encounter Visit Diagnoses Diagnosis Primary insomnia Persistent disorder of initiating or maintaining sleep documented in this encounter Additional Health Concerns Assessment Noted Time PHQ-9 Depression Total Score: 7 08/07/19 23 4:00 PM EDT documented as of this encounter Care Teams Cloth Layer Relationship Specialty Start Date End Date Diane Duff MD [address] [place], [place] [phone] PCP - General Family Medicine 02/03/18 documented as of this encounter
--- OUTSIDE RECORDS SUMMARY | 2024-04-13 16:38 | XMS_ITS | Encounter Summary ---
Author Organization [employer] Address [address] [facility] 7t [place] [address] Care Team Providers Care Appraiser Boats And Marine Name Role Phone Diane Duff MD Primary Care Provide r Reason for Visit * Reason Comments Med Refill Encounter Details Date Type Department Care Team ([facility] st Contact Info) Description 10/29/2023 Refill [facility] MEDICINE [address] [place], [place] [phone] Diane Duff MD [address] [place] [address] Anxiety state Social History Tobacco Use Types Packs/Day Years [...] Info) Description 05/16/2024 3:30 PM EDT Telemedicine [facility] MEDICINE [address] [place] [address] Diane Duff MD [address] [place] [address] 05/24/2024 3:30 PM EDT Office Visit [facility] OPTOMETRY [address] [place] [address] Arnaldo, Tami, OD [address] [place] [address] 07/11/2024 10:00 AM EDT Clinical Support [facility] MEDICINE [address] [place] [address] Freya Lr, TROY documented as of this encounter Visit Diagnoses Diagnosis Anxiety state Anxiety state, unspecified documented in this encounter Additional Health Concerns Assessment Noted Time PHQ-9 Depression Total Score: 7 08/07/19 23 4:00 PM EDT documented as of this encounter Care Teams Appraiser Boats And Marine Relationship Specialty Start Date End Date Diane Duff MD [address] [place] [address] PCP - General Family Medicine 02/03/18 documented as of this encounter
--- OUTSIDE RECORDS SUMMARY | 2024-04-13 16:38 | XMS_ITS | Encounter Summary ---
Author Organization [employer] Address [address] [place] [address] 7t [place] [address] Care Team Providers Care Mems Integration Engineer Name Role Phone Diane Duff MD Primary Care Provide r Encounter Details Date Type Department Care Team (Latest Contact Info) Description 04/04/2024 Travel Social History Tobacco Use Types Packs/Day Years Used Date Smoking Tobacco: Never Passive Smoke Exposure: Never Smokeless Tobacco: Never Alcohol Use Standard Drinks/Week Comments Never 0 (1 standard drink = 0.6 oz pur e alcohol) Alcohol Answer Date Recorded Frequency of Alcohol [...] Info) Description 05/16/2024 3:30 PM EDT Telemedicine [facility] MEDICINE [address] [place] [address] Diane Duff MD [address] [place] [address] 05/24/2024 3:30 PM EDT Office Visit [facility] OPTOMETRY [address] [place] [address] Tami Mcintosh, OD [address] [place] [address] 07/11/2024 10:00 AM EDT Clinical Support [facility] MEDICINE [address] [place] [address] Freya Lr, TROY documented as of this encounter Visit Diagnoses Not on filedocumented in this encounter Additional Health Concerns Assessment Noted Time PHQ-9 Depression Total Score: 9 01/14/20 24 4:07 PM EST documented as of this encounter Care Teams Mems Integration Engineer Relationship Specialty Start Date End Date Diane Duff MD [address] [place] [phone] PCP - General Family Medicine 02/03/18 documented as of this encounter
--- OUTSIDE RECORDS SUMMARY | 2024-04-13 16:38 | XMS_ITS | Encounter Summary ---
Author Organization [employer] Address [address] [place] [address] 7t [place] [address] Care Team Providers Care Answering Service Telephone Operator Name Role Phone Diane Duff MD Primary Care Provide r Reason for Visit * Reason Comments Med Refill Encounter Details Date Type Department Care Team ([facility] st Contact Info) Description 04/01/2024 Refill [facility] MEDICINE [address] [place], [place] [phone] Diane Duff MD [address] [place] [address] Severe obesity (BMI 35.0-39.9) with comorbidity (CMS/HCC) Social History Tobacco Use Types Packs/Day Years [...] Info) Description 05/16/2024 3:30 PM EDT Telemedicine [facility] MEDICINE [address] [place] [address] Diane Duff MD [address] [place] [address] 05/24/2024 3:30 PM EDT Office Visit [facility] OPTOMETRY [address] [place] [address] Tami Mcintosh, OD [address] [place] [address] 07/11/2024 10:00 AM EDT Clinical Support [facility] MEDICINE [address] [place] [address] Freya Lr RN documented as of this encounter Visit Diagnoses Diagnosis Severe obesity (BMI 35.0-39.9) with comorbidity (CMS/HCC) documented in this encounter Additional Health Concerns Assessment Noted Time PHQ-9 Depression Total Score: 9 01/14/20 24 4:07 PM EST documented as of this encounter Care Teams Answering Service Telephone Operator Relationship Specialty Start Date End Date Diane Duff MD [address] [place] [address] PCP - General Family Medicine 02/03/18 documented as of this encounter
--- OUTSIDE RECORDS SUMMARY | 2024-04-13 16:38 | XMS_ITS | Encounter Summary ---
Author Organization [employer] Address [address] [place] [address] 7t [place] [address] Care Team Providers Care Bend Up Name Role Phone Diane Duff MD Primary Care Provide r Reason for Visit * Reason Comments Med Refill Encounter Details Date Type Department Care Team ([facility] st Contact Info) Description 03/28/2024 Refill [facility] MEDICINE [address] [place], [place] [phone] Diane Duff MD [address] [place] [address] Other constipation Social History Tobacco Use Types Packs/Day Years [...] Info) Description 05/16/2024 3:30 PM EDT Telemedicine [facility] MEDICINE [address] [place] [address] Diane Duff MD [address] [place] [address] 05/24/2024 3:30 PM EDT Office Visit [facility] OPTOMETRY [address] [place] [address] Tami Mcintosh, MERCEDES [address] [place] [address] 07/11/2024 10:00 AM EDT Clinical Support [facility] MEDICINE [address] [place] [address] Freya Lr RN documented as of this encounter Visit Diagnoses Diagnosis Other constipation documented in this encounter Additional Health Concerns Assessment Noted Time PHQ-9 Depression Total Score: 9 01/14/20 24 4:07 PM EST documented as of this encounter Care Teams Bend Up Relationship Specialty Start Date End Date Diane Duff MD [address] [place] [address] PCP - General Family Medicine 02/03/18 documented as of this encounter
--- OUTSIDE RECORDS SUMMARY | 2024-04-13 16:38 | XMS_ITS | Encounter Summary ---
Author Organization [employer] Address [address] [place] [address] 7t [place] [address] Care Team Providers Care Medical Massage Therapist Name Role Phone Diane Duff MD Primary Care Provide r Reason for Visit * Reason Comments Med Refill Encounter Details Date Type Department Care Team (Late st Contact Info) Description 04/07/2024 Refill [facility] MEDICINE [address] [place] [address] Diane Duff MD [address] [place] [address] Primary hypertension Social History Tobacco Use Types Packs/Day Years [...] Info) Description 05/16/2024 3:30 PM EDT Telemedicine [facility] MEDICINE [address] [place] [address] Diane Duff MD [address] [place] [address] 05/24/2024 3:30 PM EDT Office Visit [facility] OPTOMETRY [address] [place] [address] Tami Mcintosh, MERCEDES [address] [place] [address] 07/11/2024 10:00 AM EDT Clinical Support [facility] MEDICINE [address] [place] [address] Freya Lr RN documented as of this encounter Visit Diagnoses Diagnosis Primary hypertension Unspecified essential hypertension documented in this encounter Additional Health Concerns Assessment Noted Time PHQ-9 Depression Total Score: 9 01/14/20 24 4:07 PM EST documented as of this encounter Care Teams Medical Massage Therapist Relationship Specialty Start Date End Date Diane Duff MD [address] [place] [address] PCP - General Family Medicine 02/03/18 documented as of this encounter
--- OUTSIDE RECORDS SUMMARY | 2024-04-13 16:38 | XMS_ITS | Encounter Summary ---
Author Organization [employer] Address [address] [facility] [address] [place] [address] Care Team Providers Care Interlocker Name Role Phone Diane Duff MD Primary Care Provide r Reason for Visit * Reason Onset Date Comments Med Refill 08/24/2023 Encounter Details Date Type Department Care Team ([facility] st Contact Info) Description 08/24/2023 Telephone [facility] MEDICINE [address] [place], [place] [phone] Diane Duff MD [address] [place] [address] Med Refill Social History Tobacco Use Types [...] the past 12 months, has t he [employer] threatened to shut off services in your [...] encounter Miscellaneous Notes * Telephone Encounter - Staci Baxter LPN - 08/24/2023 11:48 AM EDT Medication pended to PCP. * Telephone Encounter - Flora Martin - 08/24/2023 11:44 AM EDT TC from pt requesting medication refill. Medications needing refill : senna (Senokot) 8.6 MG tablet To be sent to: [facility]/pharmacy #[id number] [place] [address] documented in this encounter Plan of Treatment Upcoming Encounters Date Type Department Care Team (Late st Contact Info) Description 05/16/2024 3:30 PM EDT Telemedicine [facility] MEDICINE [address] [place] [address] Diane Duff MD [address] [place] [address] 05/24/2024 3:30 PM EDT Office Visit [facility] OPTOMETRY [address] [place] [address] Tami Mcintosh, MERCEDES [address] [place] [address] 07/11/2024 10:00 AM EDT Clinical Support [facility] MEDICINE [address] [place] [address] Freya Lr RN documented as of this encounter Visit Diagnoses Not on filedocumented in this encounter Additional Health Concerns Assessment Noted Time PHQ-9 Depression Total Score: 7 08/07/19 23 4:00 PM EDT documented as of this encounter Care Teams Interlocker Relationship Specialty Start Date End Date Diane Duff MD [address] [place] [address] PCP - General Family Medicine 02/03/18 documented as of this encounter
--- OUTSIDE RECORDS SUMMARY | 2024-04-13 16:38 | XMS_ITS | Encounter Summary ---
Author Organization [employer] Address [address] [place] [address] [address]t [place] [address] Care Team Providers Care Cane Flume Watchman Name Role Phone Diane Duff MD Primary Care Provide r Reason for Visit * Reason Comments TEACHER SELECTION SPECIALIST Renewal TEACHER SELECTION SPECIALIST Renewal Encounter Details Date Type Department Care Team (Latest Contact Info) Description 04/04/2024 10:00 AM EST Clinical Support [facility] MEDICINE [address] [place] [address] Freya Lr RN Other chronic pain (Primary Dx) Social History Tobacco Use Types Packs/Day Years [...] AM EDT documented as of this encounter Progress Notes * Freya Lr RN - 04/04/2024 10:00 AM EST S: Pt here for TEACHER SELECTION SPECIALIST Renewal Visit. Prescribed Percocet 10mg Q8hr PRN. States she has been taking 2-3doses a day, last Percocet was taken last night. She denies smoking cigarettes, illicit drug ise and marijuana use. She will have 2 glasses of wine socially, occasionally. Currently rates her pain a 6 and states medication is 70% effective at alleviating her pain. Current pain site is her neck and her lower back. She said she uses a heating pad at home for comfort, which provides minimal relief. Pt states she is traveling to [place] for June this year. O: TEACHER SELECTION SPECIALIST Tier 2. Pt currently prescribed Percocet 10mg Q8hr PRN. APPLICATION SECURITY ENGINEER verified today. Rx last filled on 03/15/24. Pill count performed. Pt has 26 pills at this time, 23 at least expected. Medication is not overused by patient. UTOX completed. Positive for OXY, Negative for AMP, BAR, BUP, BZO, RAY, FTY, MDMA, MET, MOP, MTD, PCP, TCA, THC. UTOX as expected. BPI updated, see scanned documents from this date. Pain severity score of 6.8, activity interference score of 7.9. Previous BPI completed 09/17/23 with pain severity score of 7, activity interference score of 8.7. Narcan medication reviewed, how it's administered and when it's used. Pt stated she understood. Will update PCP with BPI scoring and request narcan renewal. Acupuncture and chronic pain group information provided. Last PCP visit was 02/25/24, scheduled next 04/19/24. A: TEACHER SELECTION SPECIALIST Contract Renewal Visit: Chronic Opioid use related to pain. P: TEACHER SELECTION SPECIALIST contract reviewed and signed, Pt provided copy. Pt to continue taking medication only as prescribed; Next TEACHER SELECTION SPECIALIST RV appointment scheduled for 07/11/24 @ 10a, F/U sooner PRN. Appointment reminder given. Pt verbalized understanding and agreed to plan. documented in this encounter Plan of Treatment Upcoming Encounters Date Type Department Care Team (Late st Contact Info) Description 05/16/2024 3:30 PM EDT Telemedicine [facility] MEDICINE [address] [place] [address] Diane Duff MD [address] [place] [address] 05/24/2024 3:30 PM EDT Office Visit [facility] OPTOMETRY [address] [place] [address] Arnaldo, Tami, OD [address] [place] [address] 07/11/2024 10:00 AM EDT Clinical Support [facility] MEDICINE [address] [place] [address] Freya Lr, TROY documented as of this encounter Procedures Procedure Name Priority Date/Time Associated Diagnosis Comments POCT BI-14 URINE DRUG SCREEN Routine 04/04/2024 9:58 AM EST Other chronic pain documented in this encounter Results * POCT BI-14 Urine Drug Screen (04/04/2024 9:58 AM EST) Oxycodone Screen, Urine Positive Urine Urine specimen obtained by clean catch procedure / Unknown 04/04/2024 9:58 AM EST Freya French, RN - 04/04/2024 9:58 AM EST UTOX cup Lot#[id number] Exp. 12/01/25 Internal Pass Control Diane Dwyer MD POINT OF CARE TEST EN TER/EDIT ORDERABLES Final Result documented in this encounter Visit Diagnoses Diagnosis Other chronic pain- Primary documented in this encounter Additional Health Concerns Assessment Noted Time PHQ-9 Depression Total Score: 9 01/14/20 24 4:07 PM EST documented as of this encounter Care Teams Cane Flume Watchman Relationship Specialty Start Date End Date Diane Duff MD [address] [place] [id number] PCP - General Family Medicine 02/03/18 documented as of this encounter
--- OUTSIDE RECORDS SUMMARY | 2024-04-13 16:38 | XMS_ITS | Encounter Summary ---
Author Organization [employer] Address [address] [place] [address] 7t [place] [address] Care Team Providers Care Instructional Specialist Name Role Phone Diane Duff MD Primary Care Provide r Reason for Visit * Reason Comments Med Refill Encounter Details Date Type Department Care Team ([facility] st Contact Info) Description 01/04/2023 Refill [facility] MEDICINE [address] [place], [place] [phone] Diane Duff MD [address] [place] [address] Class 2 severe obesity due to excess calories with serious comorbidity and body mass index (BMI) of 36.0 to 36.9 in adult Social History Tobacco Use Types Packs/Day Years [...] Info) Description 05/16/2024 3:30 PM EDT Telemedicine [facility] MEDICINE [address] [place] [address] Diane Duff MD [address] [place] [address] 05/24/2024 3:30 PM EDT Office Visit [facility] OPTOMETRY [address] [place] [address] Arnaldo, Tami, OD [address] [place] [address] 07/11/2024 10:00 AM EDT Clinical Support [facility] MEDICINE [address] [place] [address] Freya Lr, RN documented as of this encounter Visit Diagnoses Diagnosis Class 2 severe obesity due to excess calories with serious comorbidity and body mass index (BMI) of 36.0 to 36.9 in adult (CMS/HCC) documented in this encounter Additional Health Concerns Assessment Noted Time PHQ-9 Depression Total Score: 7 08/07/19 23 4:00 PM EDT documented as of this encounter Care Teams Instructional Specialist Relationship Specialty Start Date End Date Diane Duff MD [address] [place] [id number] PCP - General Family Medicine 02/03/18 documented as of this encounter
--- OUTSIDE RECORDS SUMMARY | 2024-04-13 16:38 | XMS_ITS | Encounter Summary ---
Author Organization [employer] Address [address] [place] [address] 7[address] [place] [address] Care Team Providers Care Fur Pointer Name Role Phone Diane Duff MD Primary Care Provide r Reason for Visit * Reason Comments Med Refill Encounter Details Date Type Department Care Team (Late st Contact Info) Description 09/11/2022 Refill [facility] MEDICINE [address] [place] [phone] Diane Duff MD [address] [place] [address] [phone] Social History Tobacco Use Types Packs/Day Years Used Date Smoking Tobacco: Never Passive Smoke Exposure: Never Smokeless Tobacco: Never Depression Answer Date Recorded Patient Health Questionnaire-9 Score 7 08/06/2022 Depression Answer Date Recorded Patient Health Questionnaire-2 [...] Info) Description 05/16/2024 3:30 PM EDT Telemedicine [facility] MEDICINE [address] [place], [place] [phone] Diane Duff MD [address] [place], [place] [phone] 05/24/2024 3:30 PM EDT Office Visit [facility] OPTOMETRY [address] [place] [address] Tami Mcintosh, OD [address] [place] [address] 07/11/2024 10:00 AM EDT Clinical Support [facility] MEDICINE [address] [place] [address] Freya Lr RN documented as of this encounter Visit Diagnoses Not on filedocumented in this encounter Additional Health Concerns Assessment Noted Time PHQ-9 Depression Total Score: 7 08/07/19 23 4:00 PM EDT documented as of this encounter Care Teams Fur Pointer Relationship Specialty Start Date End Date Diane Duff MD [address] [place] [address] PCP - General Family Medicine 02/03/18 documented as of this encounter
--- OUTSIDE RECORDS SUMMARY | 2024-04-13 16:38 | XMS_ITS | Clinical Summary ---
Author Organization SiteBrandchi [facility] Facility Address [address] [place] [address], [place] [address] Care Team Providers Care Park Maintainer Name Role Phone Diane Duff MD Primary Care Provide r Allergies No known active allergies Medications beta carotene 70233 units capsule Take 1 capsule by mouth 1 (one) time each day Active cholecalciferol (VITAMIN D-3) 50 MCG (1999) capsule TOME 1 C PSULA POR V A ORAL TODOS LOS D 1 Active clotrimazole-be tamethasone (LOTRISONE) cream APPLY TO THE AFFECTED AND SURROUNDING AREAS OF SKIN IN THE MORNING AND EVENING FOR 2 WEEKS 1 Active docusate sodium (COLACE) 100 MG capsule TOME 2 C PSULAS AL ACOSTARSE 1 Active fluticasone (FLONASE) 50 MCG/ACT nasal spray Duration: 90 Active fluticasone HFA (Flovent HFA) 220 MCG/ACT inhaler Active gabapentin (NEURONTIN) 300 MG capsule TOME GOPI C PSULA NIC VECES AL D A 1 Active Combivent Respimat 20-100 MCG/ACT inhaler PLEASE SEE ATTACHED FOR DETAILED DIRECTIONS 1 Active loratadine (CLARITIN) 10 MG tablet TOME GOPI TABLETA TODOS LOS D 1 Active montelukast (SINGULAIR) 10 MG tablet TOME GOPI TABLETA TODOS LOS D EN LA NOCHE 1 Active oxybutynin XL (DITROPAN-XL) 10 MG 24 hr tablet TOME GOPI TABLETA TODOS LOS D 1 Active oxyCODONE-aceta minophen (PERCOCET) 10-325 MG per tablet TOME GOPI TABLETA CADA OCHO H[place]AS CU[place]O SEA NECESARIO 1 Active pantoprazole (PROTONIX) 40 MG EC tablet Take 1 tablet by mouth 1 (one) time each day Active albuterol HFA (PROVENTIL HFA;VENTOLIN HFA) 108 (90 Base) MCG/ACT inhaler 1 Active lisinopril 5 MG tablet TOME GOPI TABLETA TODOS LOS BIANCHI 90 tablet 4 2 Active hydroCHLOROthia zide 25 MG tablet TAKE 1/2 TABLET BY MOUTH EVERY DAY 45 tablet 2 3 Active Active Problems Problem Noted Date Diagnosed Date Renal osteodystrophy 02/08/2024 Chronic kidney disease, stage 4 (severe) 024 Radiculopathy due to cervical spondylosis 2022 Telangiectasia of skin of face 08/08/2022 Overview (05/20/2023): Last Assessment & Plan: ?? Reviewed basic education regarding condition, as well importance of sun protection ?? May consider laser tx if desired for cosmetic reasons Cervical radiculopathy 08/01/2022 Abscess of breast 02/03/2022 Asthma 10/01/2021 Binge eating disorder 10/01/2021 Radiculopathy due to cervical spondylosis 2021 Chronic obstructive pulmonary disease 10/01/2021 Helicobacter-associated gastritis 10/01/2021 Morbid obesity 10/01/2021 Nausea 10/01/2021 Obstructive sleep apnea syndrome 10/01/2021 Schwannoma of spinal cord 10/01/2021 Urinary incontinence 10/01/2021 Obese class II 10/01/2021 IgA nephropathy 03/20/2021 Benign hypertensive renal disease 12/14/2020 Nephritis 12/14/2020 Proteinuria 12/14/2020 Stage 3b chronic kidney disease 06/15/2020 Hypertension 06/15/2020 Diverticulitis 04/21/2017 Mass of skin 08/31/2012 Mixed urinary incontinence 05/24/2012 Carpal tunnel syndrome 05/24/2012 Depressive disorder 08/25/2011 Anxiety state 08/25/2011 Encounters Date Type Department Care Team Description 02/22/2024 Orders Only [facility] [address] [place] [phone] Esau Padilla MD Chronic kidney disease, stage 4 (severe) (HCC); Persistent proteinuria; IgA nephropathy 02/08/2024 1:30 PM EST Office Visit [facility] [address] [place] [address] Esau Padilla MD Chronic kidney disease, stage 4 (severe) (HCC) (Primary Dx); Persistent proteinuria; IgA nephropathy 2024 Orders Only [facility] [address] [phone] Esau Padilla MD 2024 Office Communication [facility] [address] [phone] America Wang [place] Chronic kidney disease, stage 4 (severe) (HCC) (Primary Dx); Stage 3b chronic kidney disease (HCC) from Last 3 Months Immunizations Name Administration Dates Next Due Influenza Split 12/22/2012,04/06/2012 Influenza, Quadrivalent, Preservative Free 12/20 Influenza, Quadrivalent, With Preservative 12/16,01/12/2018 Influenza, Unspecified 03/16/2014 Moderna SARS-COV-2 07/26/2020,06/28/2020 Pneumococcal Polysaccharide 04/23/2012 Td 07/12/2003 Family History Medical History Relation Comments Cancer Father colon Diabetes Mother Heart disease Mother Hypertension Mother Kidney disease Mother Hypertension Sibling 1 Diabetes Sibling 2 sisters and brio hers Relation Status Comments Father Mother Alive Sibling 1 Sibling 2 Social History Tobacco Use Types Packs/Day Years Used Date Smoking Tobacco: Never Smokeless Tobacco: Never Alcohol Use Standard Drinks/Week Comments No 0 (1 standard drink = 0.6 oz pur e alcohol) Comments Unknown Sex and Gender Information Value Date Recorded Sex Assigned at Not on file Legal Sex Female 5:04 PM EST Gender Identity Not on file Sexual Orientation Not on file Last Filed Vital Signs Vital Sign Reading Time Taken Comments Blood Pressure 118/74 02/08/2024 1:29 PM EST Pulse 71 02/08/2024 1:29 PM EST Temperature - - Respiratory Rate - - Oxygen Saturation 97% 02/08/2024 1:29 PM EST Inhaled Oxygen Concentration - - Weight 88.3 kg (194 lb 9.6 oz) 02/08/2024 1:29 P M EST Height 154.9 cm (5' 1 ) 06/15/2020 11:14 AM EDT Body Mass Index 36.77 06/15/2020 11:14 AM EDT Plan of Treatment Upcoming Encounters Date Type Department Care Team (Late st Contact Info) Description 08/15/2024 3:15 PM EDT Office Visit [facility] [address] [place] [address] Esau Padilla MD [address] [facility] [address] [place] [phone] Health Maintenance Due Date Last Done Comments Breast Cancer Screening 1970 Hepatitis B Vaccine (1 of 3 - 19+ 3-dose series) 1989 Pneumococcal Vaccine: Pediat rics (0 to 5 Years) and At-Risk Patients (6 to 64 Years) (2 of 2 - PCV) 04/23/2013 04/23/2012 Colorectal Cancer Screening: Annual FOBT 2019 Colorectal Cancer Screening: Colonoscopy 2019 Colorectal Cancer Screening: Sigmoidoscopy 2019 Influenza Vaccine (#1) 2023 , 12/16/2018, 01/12/2018, Additional history exists Procedures Procedure Name Priority Date/Time Associated Diagnosis Comments PROTEIN / CREATININE RATIO, URINE Routine 2024 5:04 PM EST ALBUMIN, URINE, RANDOM Routine 2024 5:04 PM EST URINALYSIS WITH MICROSCOPIC Routine 2024 5:04 PM EST VITAMIN D 25 HYDROXY Routine 2024 4:26 PM EST PTH, INTACT (HC) Routine 2024 4:26 PM EST ALBUMIN Routine 2024 4:26 PM EST MAGNESIUM Routine 2024 4:26 PM EST PHOSPHATE ( PHOSPHORUS) Routine 2024 4:26 PM EST CALCIUM Routine 2024 4:26 PM EST CREATININE, BLOOD Routine 2024 4:2 6 PM EST BUN Routine 2024 4:26 PM EST ELECTROLYTE PANEL Routine 2024 4:2 6 PM EST CBC AND DIFFERENTIAL Routine 2024 4:26 PM EST Chronic kidney disease, stage 4 (severe) (HCC) Stage 3b chronic kidney disease (HCC) from Last 3 Months Results * Protein, Total, Random Urine w/Creatinine (Protein/Creat Ratio) (2024 5:04 PM EST) Protein Urine Random <7 <12 mg/dL See order comments Protein/Creatin ine Ratio, Urine TNP <0.2 See order comments Comment: Unable to calculate urine protein creatinine ratio due to low creatinine or protein result. 2024 5:04 PM EST 2024 5:04 PM EST us Esau Padilla MD LAB URINE ORDERABLES Final Re sult [place] See order comments [place] [address] * Albumin, urine, random (2024 5:04 PM EST) Creatinine, Urine 83.08 mg/dL Se e order comments Urine Microalbumin 9.0 mg/L See order comments Microalbumin/Crea tinine Ratio 10.8 <30 ug/mg cr See order comments Comment: ?Albumin/Creatinine Ratio Reference Ranges: ?Normal: < 30 ug/mg creatinine ?Microalbuminuria: ??30 - 300 ug/mg creatinine Clinical Albuminuria: ??> 300 ug/mg creatinine 2024 5:04 PM EST 2024 5:04 PM EST Esau Padilla MD LAB URINE ORDERABLES Final Re sult Performing Organization Address [facility] de Phone Number [place] See order comments [place] [address] * (ABNORMAL) Urinalysis with microscopic (2024 5:04 PM EST) Color Urine Yellow See orde r comments Appearance Urine Clear See order comments pH Urine 5.5 5.0 - 9.0 See order comments Glucose Urine Negative Negative mg/dL See order comments Blood, Urine Negative Negative See ord er comments Specific [place] Urine 1.015 1.005 - 1.025 See order comments Protein Urine Negative Neg-Trace mg/dL See order comments Ketones, Urine Negative Negative mg/dL See order comments Nitrite, Urine Negative Negative See o rder comments Leukocyte Esterase Urine Moderate (2+)(A) Negative See order comments RBC, Urine 0-2 0 - 2 /HPF See orde r comments WBC 11-20(A) 0 - 5 /HPF See order comments Squamous Epithelial, Urine 6-10 0 - 2 /HPF See order comments Bacteria, Urine 1+ None Seen See order comments Hyaline Casts, Urine 0-2 0 - 2 /LPF See order comments 2024 5:04 PM EST 2024 5:04 PM EST Esau Padilla MD LAB URINE ORDERABLES Edited R esult - Final Performing Organization Address [facility] de Phone Number [place] See order comments [place] [address] * (ABNORMAL) Creatinine (2024 4:26 PM EST) Creatinine Serum 1.90(H) 0.5 - 1.4 mg/dL See order comments eGFR 28 See order comments Comment: Chronic Kidney Disease: ??Estimated GFR < 60 mL/min/1.73m2 Severe Kidney Disease: ??Estimated GFR < 15 mL/min/1.73m2 2024 4:2 6 PM EST 2024 4:26 PM EST Esau Padilla MD LAB BLOOD ORDERABLES Final Re sult Performing Organization Address [facility] de Phone Number [facility] See order comments [place] [address] * (ABNORMAL) PTH, Intact (2024 4:26 PM EST) Parathyroid Hormone, Intact 124.0(H) 8.7 - 77.1 pg/mL See order comments 2024 4:26 PM EST 2024 4:26 PM EST Esau Padilla MD LAB [id number] SOLICITED RESULTS Final Result Performing Organization Address [facility] de Phone Number [facility] See order comments [place] [address] * Vitamin D 25 Hydroxy (2024 4:26 PM EST) Vitamin D, 25-Hydroxy 38.6 >30 ng/mL See order comments Comment: Health Based Reference Values* < 20 ??ng/mL ??Deficient 20-30 ng/mL ??Insufficient > 30 ??ng/mL ??Sufficient *John LEONARD. N Engl J Med. 2007;357:266-280 Care must be taken in interpreting Vitamin D results from different laboratories and methodologies. ??Published data demonstrated that results from patients undergoing hemodialysis may show a negative bias when tested with various automated 25-OH vitamin D assays when compared to LC-MS/MS. When testing samples from patients whose predominant form of Vitamin D is Vitamin D2, such as patients receiving Vitamin D2 supplementation, results that are subtherapeutic should be confirmed with another method such as LC-MS/MS. 2024 4:26 PM EST 2024 4:26 PM EST us Esau Padilla MD LAB BLOOD ORDERABLES Final Re sult [place] See order comments [place] [address] * (ABNORMAL) CBC and differential (2024 4:26 PM EST) WBC 9.5 4.8 - 10.8 X10*3/uL See order comments RBC 3.90(L) 4.20 - 5.50 X10*6/uL See order comments Hgb 10.5(L) 12.0 - 16.0 g/dl See order comments Hematocrit 33.7(L) 37.0 - 47.0 % See order comments MCV 86.4 80.0 - 98.0 fL See order comments MCH 26.9(L) 27.0 - 33.0 pg See order comments MCHC 31.2 31.0 - 35.0 g/dl See order comments RDW 14.3 11.0 - 16.0 % See order comments Platelets 229 160 - 400 X10*3/uL See order comments MPV 11.0 9.4 - 12.3 fL See order comments Neutrophils % Auto 69.5 45 - 73 % See order comments Immature Granulocytes 0.6(H) 0.0 - 0.4 % See order comments Lymphocytes Relative 19.8(L) 20 - 40 % See order comments Monocytes 9.0 2 - 11 % See order comments Eosinophils Relative 0.7 0 - 4 % See order comments Basophils Relative 0.4 0 - 2 % See order comments nRBC Count 0.0 0.0 - 0.2 /100WBC See order comments Neutrophils Absolute 6.6 2.0 - 8.3 x10*3/uL See order comments Immature Grans (Absolute) 0.06(H) 0.00 - 0.03 X10*3/uL See order comments Lymphocytes Absolute 1.9 1.2 - 4.9 X10*3/uL See order comments Monocytes Absolute 0.9 0.1 - 1.2 X10*3/uL See order comments Eosinophils Absolute 0.1 0.0 - 0.4 X10*3/uL See order comments Basophils Absolute 0.0 0.0 - 0.2 X10*3/uL See order comments NRBC Absolute 0.000 0.0 - 0.012 X10*3/uL See order comments Blood (Blood, Venous) 2024 4:26 PM EST 2024 4:26 PM EST us Esau Padilla MD LAB BLOOD ORDERABLES Final Re sult Performing Organization Address [facility] Phone Number [place] See order comments [place] [address] * (ABNORMAL) BUN (2024 4:26 PM EST) BUN 32(H) 9 - 16 mg/dL See order comments 2024 4:26 PM EST 2024 4:26 PM EST us Esau Padilla MD LAB BLOOD ORDERABLES Final Re sult Performing Organization Address [facility] Phone Number [place] See order comments [place] [address] * Phosphorus (2024 4:26 PM EST) Phosphorus, Serum 2.9 2.7 - 4.5 mg/dL See order comments 2024 4:26 PM EST 2024 4:26 PM EST us Esau Padilla MD LAB BLOOD ORDERABLES Final Re sult Performing Organization Address [facility] Phone Number [facility] See order comments [place] [address] * Magnesium (2024 4:26 PM EST) Magnesium 2.0 1.6 - 2.6 mg/dL See order comments 2024 4:26 PM EST 2024 4:26 PM EST us Esau Padilla MD LAB BLOOD ORDERABLES Final Re sult Performing Organization Address [facility] de Phone Number [facility] See order comments [place] [address] * Calcium (2024 4:26 PM EST) Calcium 9.4 8.4 - 10.2 mg/dL See order comments 2024 4:26 PM EST 2024 4:26 PM EST us Esau Padilla MD LAB BLOOD ORDERABLES Final Re sult Performing Organization Address [facility] Phone Number [facility] See order comments [place] [address] * Albumin (2024 4:26 PM EST) Albumin 4.0 3.5 - 5.0 g/dL See order comments 2024 4:26 PM EST 2024 4:26 PM EST us Esau Padilla MD LAB BLOOD ORDERABLES Final Re sult Performing Organization Address [facility] Phone Number [place] See order comments [place] [address] * (ABNORMAL) Electrolyte panel (2024 4:26 PM EST) Sodium 139 135 - 145 mmol/L See order comments Potassium 4.1 3.3 - 5.1 mmol/L See order comments Chloride 110(H) 96 - 108 mmol/L See order comments Bicarbonate (CO2) 24 22 - 29 mmol/L See order comments Anion Gap 9(L) 12 - 20 See order comments 2024 4:26 PM EST 2024 4:26 PM EST us Esau Padilla MD LAB BLOOD ORDERABLES Final Re sult Performing Organization Address [facility] Phone Number [facility] See order comments [place] [address] from Last 3 Months Insurance [facility] ([id number]) [facility] ([id number]) Care Teams Park Maintainer Relationship Specialty Start Date End Date Diane Duff MD [address] [place] [phone] PCP - General Internal Medicine 06/15/20
--- OUTSIDE RECORDS SUMMARY | 2024-04-13 16:38 | XMS_ITS | Encounter Summary ---
Author Organization [employer] Address [address] [place] [address] [address] [place] [address] Care Team Providers Care Heel Sander Rubber Name Role Phone Diane Duff MD Primary Care Provide r Reason for Visit * Reason Comments Med Change Request Encounter Details Date Type Department Care Team ([facility] st Contact Info) Description 02/04/2023 Refill [facility] [address] [place] [address] Martha Avendano FNP Social History Tobacco Use Types Packs/Day Years Used Date Smoking Tobacco: Never Passive Smoke Exposure: Never Smokeless Tobacco: Never Depression Answer Date Recorded Patient Health Questionnaire-9 Score 7 08/06/2022 Housing Stability Answer Date Recorded What is your housing situation today? I have jona peters 12/23/[address] you [...] encounter Miscellaneous Notes * Telephone Encounter - ESME Mobley - 02/06/2023 10:35 AM EST Approving, but needs appt for additional refills. documented in this encounter Plan of Treatment Upcoming Encounters Date Type Department Care Team (Late st Contact Info) Description 05/16/2024 3:30 PM EDT Telemedicine [facility] [address] [place] [address] Diane Duff MD [address] [place] [address] 05/24/2024 3:30 PM EDT Office Visit [facility] [address] [place] [address] Arnaldo, Tami, OD [address] [place] [address] 07/11/2024 10:00 AM EDT Clinical Support [facility] [address] [place] [address] Freya Lr, RN documented as of this encounter Visit Diagnoses Not on filedocumented in this encounter Additional Health Concerns Assessment Noted Time PHQ-9 Depression Total Score: 7 08/07/19 23 4:00 PM EDT documented as of this encounter Care Teams Heel Sander Rubber Relationship Specialty Start Date End Date Diane Duff MD [address] [place] [address] PCP - General Family Medicine 02/03/18 documented as of this encounter
--- OUTSIDE RECORDS SUMMARY | 2024-04-13 16:38 | XMS_ITS | Encounter Summary ---
Author Organization [employer] Address [address] [place] [address] [address] [place] [address] Care Team Providers Care Blueprinting Machine Operator Name Role Phone Diane Duff MD Primary Care Provide r Reason for Visit * Reason Onset Date Comments Med Refill 04/04/2024 Encounter Details Date Type Department Care Team (Late st Contact Info) Description 04/04/2024 Refill [facility] [address] [place] [address] Freya Lr RN Other chronic pain (Primary [...] Info) Description 05/16/2024 3:30 PM EDT Telemedicine [facility] [address] [place] [address] Diane Duff MD [address] [place] [address] 05/24/2024 3:30 PM EDT Office Visit [facility] [address] [place] [address] Tami Mcintosh, OD [address] [place] [address] 07/11/2024 10:00 AM EDT Clinical Support [facility] [address] [place] [address] Freya Lr RN documented as of this encounter Visit Diagnoses Diagnosis Other chronic pain- Primary documented in this encounter Additional Health Concerns Assessment Noted Time PHQ-9 Depression Total Score: 9 01/14/20 24 4:07 PM EST documented as of this encounter Care Teams Blueprinting Machine Operator Relationship Specialty Start Date End Date Diane Duff MD [address] [place] [address] [place] [address] PCP - General Family Medicine 02/03/18 documented as of this encounter
--- OUTSIDE RECORDS SUMMARY | 2024-04-13 16:38 | XMS_ITS | Encounter Summary ---
Author Organization [email or web address] Address [address] [facility] 7t [place] [address] Care Team Providers Care Operations Representative Name Role Phone Diane Duff MD Primary Care Provide r Encounter Details Date Type Department Care Team (Late st Contact Info) Description 03/14/2024 Refill [facility] [address] [place] [address] Diane Duff MD [address] [place] [address] Other chronic pain Social History Tobacco Use Types Packs/Day Years [...] encounter Miscellaneous Notes * Telephone Encounter - Bravo Carlton - 03/14/2024 4:34 PM EST TC from pt requesting medication refill. Medications needing refill : oxyCODONE-acetaminophen (Percocet) 10-325 MG tablet To be sent to: [facility]/pharmacy #[id number] [place] [address] documented in this encounter Plan of Treatment Upcoming Encounters Date Type Department Care Team (Late st Contact Info) Description 05/16/2024 3:30 PM EDT Telemedicine [facility] [address] [place], [place] [phone] Diane Duff MD [address] [place] [address] 05/24/2024 3:30 PM EDT Office Visit [facility] [address] [place] [address] Tami Mcintosh, OD [address] [place] [address] 07/11/2024 10:00 AM EDT Clinical Support [facility] [address] [place] [address] Freya Lr RN documented as of this encounter Visit Diagnoses Diagnosis Other chronic pain documented in this encounter Additional Health Concerns Assessment Noted Time PHQ-9 Depression Total Score: 9 01/14/20 24 4:07 PM EST documented as of this encounter Care Teams Operations Representative Relationship Specialty Start Date End Date Diane Duff MD [address] [place] [address] PCP - General Family Medicine 02/03/18 documented as of this encounter
--- OUTSIDE RECORDS SUMMARY | 2024-04-13 16:38 | XMS_ITS | Encounter Summary ---
Author Organization [employer] Address [address] [place] [address] [address] [place] [address] Care Team Providers Care Brake Repairer Name Role Phone Diane Duff MD Primary Care Provide r Reason for Visit * Reason Onset Date Comments TEST ARCHITECT Renewal today, BPI Scoring 04/04/2024 Encounter Details Date Type Department Care Team ([facility] st Contact Info) Description 04/04/2024 Telephone [facility] [address] [place] [address] Freya Lr RN TEST ARCHITECT Renewal today, BPI Scoring Social History Tobacco Use Types Packs/Day Years [...] encounter Miscellaneous Notes * Telephone Encounter - Freya Lr RN - 04/04/2024 10:08 AM EST Pt had TEST ARCHITECT Renewal appt today BPI updated Pain severity score of 6.8, activity interference score of 7.9. Previous BPI completed 09/17/23 with pain severity score of 7, activity interference score of 8.7. documented in this encounter Plan of Treatment Upcoming Encounters Date Type Department Care Team (Late st Contact Info) Description 05/16/2024 3:30 PM EDT Telemedicine [facility] [address] [place] [address] Diane Duff MD [address] [place] [address] 05/24/2024 3:30 PM EDT Office Visit [facility] [address] [place] [address] Tami Mcintosh, OD [address] [place] [address] 07/11/2024 10:00 AM EDT Clinical Support [facility] [address] [place] [address] Freya Lr RN documented as of this encounter Visit Diagnoses Not on filedocumented in this encounter Additional Health Concerns Assessment Noted Time PHQ-9 Depression Total Score: 9 01/14/20 24 4:07 PM EST documented as of this encounter Care Teams Brake Repairer Relationship Specialty Start Date End Date Diane Duff MD [address] [place] [address] PCP - General Family Medicine 02/03/18 documented as of this encounter
--- OUTSIDE RECORDS SUMMARY | 2024-04-13 16:38 | XMS_ITS | Encounter Summary ---
Author Organization [employer] Address [address] [place] [address] Care Team Providers Care Data Processing Systems Consultant Name Role Phone Diane Duff MD Primary Care Provide r Reason for Visit * Reason Onset Date Comments Med Refill 12/18/2022 Encounter Details Date Type Department Care Team ([facility] st Contact Info) Description 12/18/[address] [facility] [address] [place] [address] Diane Duff MD [address] [place] [address] Med Refill Social History Tobacco Use Types Packs/Day Years Used Date Smoking Tobacco: Never Passive Smoke Exposure: Never Smokeless Tobacco: Never Depression Answer Date Recorded Patient Health Questionnaire-9 Score 7 08/06/2022 Housing Stability Answer Date Recorded What is your housing situation today? I have joan peters 12/16/[address] you li ve. Do you have problems with any of the following? None of the above 12/16/2022 Food Insecurity Answer Date Recorded Within the past 12 months, y ou worried that your food would run out before you got money to buy more: Never True 12/16/2022 Within the past 12 months,th e food you bought just didn't last and you didn't have enough money to get more: Never True 12/2022 Transportation Answer Date Recorded In the past 12 months, has l ack of transportation kept you from medical appts, meetings, work or from getting things needed for daily living? No 12/16/2022 Utilities Answer Date Recorded In the past 12 months, has t he [facility], [employer], oil or water [place] threatened to shut off services in your home? No 12/16/2022 Depression Answer Date Recorded Patient Health Questionnaire-2 Score 3 08/06/2022 Comments Unknown Sex and Gender Information Value Date Recorded Sex Assigned at Female 01/06/2022 10:15 AM EDT Legal Sex Female 10:15 AM EDT Gender Identity Female 01/06/2022 10:15 AM EDT Sexual Orientation Straight 01/06/2022 10 :15 AM EDT documented as of this encounter Miscellaneous Notes * Telephone Encounter - Misty Velez - 12/18/2022 2:29 PM EDT Tc from pt requesting med refill for medication oxyCODONE-acetaminophen (Percocet) 10-325 MG tablet. documented in this encounter Plan of Treatment Upcoming Encounters Date Type Department Care Team (Late st Contact Info) Description 05/16/2024 3:[address] [facility] [address] [place] [address] Diane Duff MD [address] [place] [address] 05/24/2024 3:30 PM EDT Office Visit [facility] [address] [place] [address] Arnaldo, Tami, OD [address] [place] [address] 07/11/2024 10:00 AM EDT Clinical Support [facility] [address] [place] [address] Freya Lr RN documented as of this encounter Visit Diagnoses Not on filedocumented in this encounter Additional Health Concerns Assessment Noted Time PHQ-9 Depression Total Score: 7 08/07/19 23 4:00 PM EDT documented as of this encounter Care Teams Data Processing Systems Consultant Relationship Specialty Start Date End Date Diane Duff MD [address] [place] [address] PCP - General Family Medicine 02/03/18 documented as of this encounter
--- OUTSIDE RECORDS SUMMARY | 2024-04-13 16:38 | XMS_ITS | Clinical Summary ---
Author Organization [employer] Address [address] [place] [address] [address] [place] [address] Care Team Providers Care Farmer And Grazier Name Role Phone Diane Duff MD Primary Care Provide r Allergies No known active allergies Medications lidocaine (Lidoderm) 5 % patch apply 1 patch by transdermal route every day (May wear up to 12hours.) as needed for pain 022 Active fluticasone (Flovent) 220 MCG/ACT inhaler inhale 1 puff by inhalation route 2 times every day 022 Active ondansetron ODT (Zofran-ODT) 4 MG disintegrating tablet take 1 tablet by oral route every [address] on top of the tongue where they will dissolve, then swallow for nausea 021 Active Acetaminophen (Mapap) 500 MG capsule take 1 capsule by oral route every 8 hours as needed 020 Active beta carotene (vitamin A) 3 MG (26361 UT) capsule take 1 capsule by oral route every day 018 Active sucralfate (Carafate) 1 GM/10ML suspension take 10 milliliter by oral route 2 times every day on an empty stomach 1 hour before meals and at bedtime 018 Active Multiple Vitamins-Minerals (Multi Adult Gummies) chewable tablet Chew 1 gummy daily 018 Active Nebulizers (Compressor/Nebul izer) [facility] PULMO-AIDE COMPRESSOR 012 Active Respiratory Therapy Supplies (Nebulizer Mask Adult) [facility] One mask, pt has nebulizer, use with nebulizer prn. Adult mask Active ipratropium-albut woodrow (Combivent Respimat) 20-100 MCG/ACT inhalerIndication s:Asthma-chronic obstructive pulmonary disease overlap syndrome (CMS/HCC) inhale 1 puff by inhalation route 4 times every day ; may take additional puffs as needed not to exceed 6 puffs in 24hrs 4 g 5 023 Active Spacer/Aero-Holdi ng Chambers (AeroChamber Z-Stat Plus) inhaler 1 each by Other route if needed (as directed). Aerochamber Plus Z Stat spacer Use as needed 1 each 023 Active triamcinolone (Kenalog) 0.1 % creamIndications: Nummular dermatitis Mix 80g tube of Triamcinolone 0.1% cream with 16oz jar of CeraVe cream. Apply 1-2 times per day after shower or bath from the neck down (not on face) 80 g 3 023 Active LORazepam (Ativan) 0.5 MG tabletIndications :Anticipatory anxiety Take one tablet one hour before MRI or procedure 4 tablet 023 Active cholecalciferol 50 MCG (2000 UT) capsuleIndication s:Vitamin D deficiency TAKE 1 CAPSULE BY MOUTH EVERY DAY 90 capsule 1 024 Active hydrOXYzine HCl (Atarax) 25 MG tabletIndications :Anxiety state TAKE 1 TABLET (25 MG) BY MOUTH IF NEEDED IN THE MORNING AND AT BEDTIME FOR ANXIETY. 180 tablet 1 024 Active docusate sodium (Colace) 100 MG capsuleIndication s:Other constipation TAKE 1 CAPSULE BY MOUTH TWICE A DAY 180 capsule 1 024 Active traZODone (Desyrel) 50 MG tabletIndications :Primary insomnia Take 1 tablet (50 mg) by mouth at bedtime. 30 tablet 2 024 Active loratadine (Claritin) 10 MG tablet TAKE 1 TABLET BY MOUTH EVERY DAY NEEDED FOR ALLERGIES 90 tablet 3 024 Active montelukast (Singulair) 10 MG tabletIndications :Asthma-chronic obstructive pulmonary disease overlap syndrome (CMS/HCC) TAKE 1 TABLET BY MOUTH EVERY DAY IN THE EVENING 90 tablet 1 024 Active gabapentin (Neurontin) 300 MG capsuleIndication s:Cervical radiculopathy due to degenerative joint disease of spine TAKE 1 CAPSULE BY MOUTH THREE TIMES A DAY 90 capsule 3 024 Active hydroCHLOROthiazi de (HYDRODiuril) 25 MG tabletIndications :Primary hypertension TAKE 1/2 TABLET BY MOUTH EVERY MORNING 45 tablet 1 024 Active lisinopril 2.5 MG tabletIndications :Primary hypertension TAKE 1 TABLET BY MOUTH EVERY DAY IN THE MORNING 90 tablet 1 024 Active albuterol 108 (90 Base) MCG/ACT inhaler 012 Active Nucala 100 MG/ML solution auto-injector 024 Active Ivermectin 1 % cream APPLY TO THE FACE ONCE DAILY IN THE MORNING. 024 Active ferrous sulfate 325 (65 Fe) MG tablet Take 1 tablet by mouth Once per day. 024 Active pantoprazole (ProtoNix) 40 MG EC tabletIndications :Gastroesophageal reflux disease without esophagitis TAKE 1 TABLET BY MOUTH EVERY MORNING. SWALLOW WHOLE. 90 tablet 1 024 Active oxybutynin XL (Ditropan-XL) 10 MG 24 hr tabletIndications :Mixed stress and urge urinary incontinence TAKE 1 TABLET BY MOUTH EVERY MORNING. DO NOT CRUSH, CHEW OR SPLIT. 90 tablet 1 024 Active Zepbound 2.5 MG/0.5ML solution auto-injectorIndi cations:Class 2 severe obesity due to excess calories with serious comorbidity and body mass index (BMI) of 36.0 to 36.9 in adult (CMS/HCC) INJECT 0.5 ML (2.5 MG) UNDER THE SKIN 1 (ONE) TIME PER WEEK. 2 mL 024 Active fluticasone (Flonase) 50 MCG/ACT nasal spray SPRAY 1 SPRAY INTO THE AFFECTED NOSTRIL(S) ONCE DAILY 16 mL 2 024 Active Senna-Time 8.6 MG tabletIndications :Other constipation TAKE 1 TABLET BY MOUTH EVERYDAY AT BEDTIME 90 tablet 1 025 Active Tirzepatide-Weigh t Management (Zepbound) 5 MG/0.5ML solution auto-injectorIndi cations:Severe obesity (BMI 35.0-39.9) with comorbidity (CMS/HCC) INJECT 1 PEN UNDER THE SKIN 1 (ONE) TIME PER WEEK. 2 mL 025 Active naloxone (Narcan) 4 mg/0.1 mL nasal sprayIndications: Other chronic pain Administer 1 spray (4 mg) into affected nostril(s) if needed for opioid reversal. May repeat every 2-3 minutes if needed, alternating nostrils, until medical assistance becomes available. 2 each 2 025 Active naloxone (Narcan) 4 mg/0.1 mL nasal spray spray 0.1 milliliter by intranasal route in 1 nostril may repeat dose every 2-3 minutes as needed alternating nostrils with each dose 021 2024 Discontinued(R eorder (will not trigger notification to Pharmacy)) Senna-Time 8.6 MG tabletIndications :Other constipation TAKE 1 TABLET (8.6 MG) BY MOUTH AT BEDTIME. 90 tablet 1 024 2024 Discontinued Tirzepatide-Weigh t Management (Zepbound) 5 MG/0.5ML solution auto-injectorIndi cations:Severe obesity (BMI 35.0-39.9) with comorbidity (CMS/HCC) Inject 0.5 mL (5 mg) under the skin 1 (one) time per week. 2 mL 024 2024 Discontinued penicillin v potassium (Veetid) 500 MG tabletIndications :pharyngitis Take 1 tablet (500 mg) by mouth 3 times daily for 10 days. 30 tablet 024 2024 oxyCODONE-acetami nophen (Percocet) 10-325 MG tabletIndications :Other chronic pain Take 1 tablet by mouth every 8 (eight) hours if needed for severe pain for up to 28 days. 84 tablet 025 2024 Active Problems Problem Noted Date Diagnosed Date Bilateral tinnitus 02/25/2024 Papilledema 02/25/2024 Chronic headaches 02/25/2024 Colon cancer screening 01/14/2024 Encounter for screening mamm ogram for malignant neoplasm of breast 01/14/2024 Other constipation 05/11/2023 Blurring of visual image of both eyes 05/11/2023 Primary insomnia 05/11/2023 Encounter for Papanicolaou s mear for cervical cancer screening 12/05/2022 Assessment & Plan (12/05/2022 11:04 AM EDT): PAP and pelvic exam done today, patient to be contacted with results Class 2 severe obesity due t o excess calories with serious comorbidity and body mass index (BMI) of 36.0 to 36.9 in adult 12/05/2022 Assessment & Plan (01/14/2024 4:23 PM EST): I will start patient trizeptadine, patient already tried diet and exercise Assessment & Plan (12/05/2022 11:03 AM EDT): Medication discussion done, benefits and side effects reviewed Anticipatory anxiety 10/08/2022 Telangiectasia of face 08/08/2022 Assessment & Plan (08/08/2022 6:48 PM EDT): ?? Reviewed basic education regarding condition, as well importance of sun protection ?? May consider laser tx if desired for cosmetic reasons Cervical radiculopathy due t o degenerative joint disease of spine 08/01/2022 Severe obesity (BMI 35.0-39.9) with comorbidity 08/01/2022 Abscess of breast 02/03/2022 Asthma-chronic obstructive p ulmonary disease overlap syndrome 02/03/2022 Assessment & Plan (01/14/2024 4:21 PM EST): Stable continue to follow with pulmonology Assessment & Plan (05/11/2023 4:51 PM EST): I will prescribe for patient nebulizer machine she will benefit form this and will avoid for her to go to the emergency room Continue to follow with specialist Binge eating disorder 10/01/2021 Gastritis due to Helicobacter species 10/01/2021 Radiculopathy due to cervical spondylosis 2021 Schwannoma of spinal cord 10/01/2021 Asthma 10/01/2021 Chronic obstructive pulmonary disease 10/01/2021 Class 2 obesity 10/01/2021 IgA nephropathy 03/20/2021 Benign hypertensive renal disease 12/14/2020 Nephritis 12/14/2020 Proteinuria 12/14/2020 Stage 3b chronic kidney disease 06/15/2020 Hypertension 06/15/2020 Assessment & Plan (01/14/2024 4:23 PM EST): - Aerobic exercise to reduce BP. Initial goal of 30 min walk 3-5x/week. Increase as tolerated. - low-sodium diet (goal: <2g/day) and heart healthy diet such as DASH to reduce BP and prevent ASCVD. - Home BP monitoring 1-2 x day with goal of <140/90. - Seek immediate medical attention for chest pain, palpitations, SOB, syncope, or sudden changes in mental status. - Do not change or discontinue current prescriptions without first consulting health care provider Assessment & Plan (05/11/2023 4:51 PM EST): - Aerobic exercise to reduce BP. Initial goal of 30 min walk 3-5x/week. Increase as tolerated. - low-sodium diet (goal: <2g/day) and heart healthy diet such as DASH to reduce BP and prevent ASCVD. - Home BP monitoring 1-2 x day with goal of <140/90. - Seek immediate medical attention for chest pain, palpitations, SOB, syncope, or sudden changes in mental status. - Do not change or discontinue current prescriptions without first consulting health care provider Assessment & Plan (10/08/2022 10:40 AM EDT): - Aerobic exercise to reduce BP. Initial goal of 30 min walk 3-5x/week. Increase as tolerated. - low-sodium diet (goal: <2g/day) and heart healthy diet such as DASH to reduce BP and prevent ASCVD. - Home BP monitoring 1-2 x day with goal of <140/90. - Seek immediate medical attention for chest pain, palpitations, SOB, syncope, or sudden changes in mental status. - Do not change or discontinue current prescriptions without first consulting health care provider Diverticulitis 04/21/2017 IFG (impaired fasting glucose) 01/07/2017 Mass of skin 08/31/2012 Obstructive sleep apnea syndrome 08/31/2012 Carpal tunnel syndrome 05/24/2012 Mixed stress and urge urinary incontinence 05/24 Anxiety state 08/25/2011 Depressive disorder 08/25/2011 Encounters Date Type Department Care Team Description 04/07/2024 Refill [facility] [address] [place] [address] Diane Duff MD Primary hypertension 04/04/2024 10:00 AM EST Clinical Support [facility] [address] [place] [address] [phone] Ferya Lr RN Other chronic pain (Primary Dx) 04/04/2024 Telephone [facility] [address] [place] [address] [phone] Freya Lr, TROY [employer] POL[employer]ER Renewal today, BPI Scoring 04/04/2024 Refill [facility] [address] [place] [address] Freya Lr RN Other chronic pain (Primary Dx) 04/04/2024 Travel 04/04/2024 Telephone [facility] [address] [place] [phone] Freya Lr RN Recommend [employer] POLISHER Tier 2 04/01/2024 Refill [facility] [address] [place] [address] [phone] Diane Duff MD Severe obesity (BMI 35.0-39.9) with comorbidity (CMS/HCC) 03/28/2024 Refill [facility] [address] [place] [address] [phone] Diane Duff MD Other constipation 03/14/2024 Refill [facility] [address] [place] [address] [phone] Diane Duff MD Other chronic pain 03/04/2024 3:00 PM EST Office Visit [facility] [address] [place] [address] [phone] Tere Carcamo MD Streptococcal pharyngitis (Primary Dx); Sore throat; Chronic nonintractable headache, unspecified headache type 03/04/2024 Telephone [facility] [address] [place] [address] [phone] Diane Duff MD Nurse Triage 03/03/2024 Telephone [facility] [address] [place] [address] [phone] Diane Duff MD 02/25/2024 11:00 AM EST Telemedicine [facility] [address] [place] [address] Diane Duff MD Severe obesity (BMI 35.0-39.9) with comorbidity ([facility]) (Primary Dx); Bilateral tinnitus; Papilledema; Chronic nonintractable headache, unspecified headache type 02/25/2024 Travel 02/24/2024 3:30 PM EST Office Visit [facility] [address] [place] [address] Arnaldo, Tami, OD Pseudopapilledema of both optic discs (Primary Dx); Optic nerve hemorrhage, left 02/24/2024 Travel 02/23/2024 Refill [facility] [address] [place] [address] Diane Duff MD Asthma-chronic obstructive pulmonary disease overlap syndrome ([facility]) 02/16/2024 Refill [facility] [address] [place] [phone] Diane Duff MD 02/12/2024 Refill [facility] [address] [place] [address] Diane Duff MD Other chronic pain 02/08/2024 Refill [facility] [address] [place] [address] [phone] Diane Duff MD Mixed stress and urge urinary incontinence; Class 2 severe obesity due to excess calories with serious comorbidity and body mass index (BMI) of 36.0 to 36.9 in adult ([facility]) 01/27/2024 Refill [facility] [address] [place] [phone] Diane Duff MD Gastroesophageal reflux disease without esophagitis 01/18/2024 Telephone [facility] [address] [place] [address] [phone] Ronda Bell RN 01/15/2024 Telephone [facility] [address] [place] [address] [phone] Ronda Bell, park guide 01/14/2024 2:30 PM EST Office Visit [facility] [address] [place] [address] [phone] Diane Duff MD Class 2 severe obesity due to excess calories with serious comorbidity and body mass index (BMI) of 36.0 to 36.9 in adult (CMS/HCC) (Primary Dx); Other chronic pain; Primary hypertension; Asthma-chronic obstructive pulmonary disease overlap syndrome (CMS/HCC); Colon cancer screening; Encounter for screening mammogram for malignant neoplasm of breast 01/14/2024 Travel 01/12/2024 Refill [facility] [address] [place] [address] Diane Duff MD Primary hypertension from Last 3 Months Immunizations Name Administration Dates Next Due Influenza injectable quadriv alent IIV4 with preservative 12/16/2018,01/12/2018 Influenza injectable quadrivalent preservative f ree 12/20/2020 Influenza, IIV3, injectable 03/16/2014 Influenza, Split (incl. purified surface antigen ) 12/22/2012,04/06/2012 Influenza, Unspecified 03/16/2014 Moderna Covid-19 Vaccine 12+ 07/26/2020,06/29/19 21 Pneumococcal Polysaccharide PPSV23 04/23/2012 TD (adult), 2 Lf tetanus tox oid, preservative free, adsorbed 07/12/2003 Zoster, Recombinant 04/07/2024 Social History Tobacco Use Types Packs/Day Years Used Date Smoking Tobacco: Never Passive Smoke Exposure: Never Smokeless Tobacco: Never Tobacco Cessation:Counseling Given: Not Answered Alcohol Use Standard Drinks/Week Comments Never 0 [...] Orientation Straight 01/06/2022 10 :15 AM EDT Last Filed Vital Signs Vital Sign Reading Time Taken Comments Blood Pressure 115/74 03/04/2024 2:14 PM EST Pulse 83 03/04/2024 2:14 PM EST Temperature 37.3 ??C (99.1 ??F) 03/04/2024 2:14 PM ES T Respiratory Rate 19 03/04/2024 2:14 PM EST Oxygen Saturation 98% 03/04/2024 2:14 PM EST Inhaled Oxygen Concentration - - Weight 86.7 kg (191 lb 2 oz) 03/04/2024 2:14 PM EST Height 154.9 cm (5' 1 ) 03/04/2024 2:14 PM EST Body Mass Index 36.11 03/04/2024 2:14 PM EST Plan of Treatment Upcoming Encounters Date Type Department Care Team (Late st Contact Info) Description 05/16/2024 3:30 PM EDT Telemedicine [address] [phone] Diane Duff MD [address] [place] [address] 05/24/2024 3:30 PM EDT Office Visit [facility] [address] [place] [address] Arnaldo, Tami, OD [address] [place] [address] 07/11/2024 10:00 AM EDT Clinical Support [facility] [address] [place] [address] Freya Lr, TROY Health Maintenance Due Date Last Done Comments CT Colonography 1970 FIT DNA/Cologuard 1970 FIT 1970 FOBT 1970 HIV Screening 1970 Sigmoidoscopy 1970 Hepatitis C Screening 02/02/1988 Hepatitis B Vaccines (1 of 3 - 19+ 3-dose series) 1989 DTaP/Tdap/Td Vaccines (1 - Tdap) 07/13/2003 07/12/2003 Pneumococcal Vaccine: 50+ Years (2 of 2 - PCV) 04/23/2013 04/23/2012 Colonoscopy 06/01/2023 05/31/2020 Colorectal Cancer Screening 06/01/2023 COVID-19 Vaccine (3 - season) 2023 07/26/2020, 06/28/2020 Influenza Vaccine (#1) 2023 , 12/16/2018, 01/12/2018, Additional history exists Zoster Vaccines (2 of 2) 06/02/2024 04/07/2024 Depression Monitoring (PHQ-9) 07/13/2024 01/14/2024, 01/14/2024 Alcohol/Substance Use Screening 01/13/2025 01/14/2024 Depression Screening 01/13/2025 01/14/2024, 01/14/20 24 SDOH Screening 01/13/2025 01/14/2024 Mammogram 02/23/2025 02/24/2024, 09/0 10/2021, 06/12/2020, Additional history exists Tobacco Screening 03/04/2025 03/04/2024 Lipid Panel 12/05/2025 12/05/2020 Cervical Cancer Screening 12/06/2027 HPV/Cotest 12/06/2027 12/05/2022 Pap Smear 12/06/2027 12/05/2022, 12/05/2022 RSV Patients and Patients Aged 60 years or older (1 - 1-dose 75+ series) 2045 HIB Vaccines Aged Out No longer eligi ble based on patient's age to complete this topic HPV Vaccines Aged Out No longer eligi ble based on patient's age to complete this topic Hepatitis A Vaccines Aged Out No long er eligible based on patient's age to complete this topic IPV Vaccines Aged Out No longer eligi ble based on patient's age to complete this topic Meningococcal Vaccine Aged Out No rochelle reese eligible based on patient's age to complete this topic RSV under 20 months Aged Out No longe r eligible based on patient's age to complete this topic Rotavirus Vaccines Aged Out No longer eligible based on patient's age to complete this topic Procedures Procedure Name Priority Date/Time Associated Diagnosis Comments POCT BI-14 URINE DRUG SCREEN Routine 04/04/2024 9:58 AM EST Other chronic pain POCT INFLUENZA B (ID NOW RAPID MOLECULAR) Routine 03/04/2024 2:25 PM EST Sore throat POCT INFLUENZA A (ID NOW RAPID MOLECULAR) Routine 03/04/2024 2:24 PM EST Sore throat POCT COVID-19 AG DOMINIQUE ID NOW Routine 03/04/2024 2:23 PM EST Sore throat POC DOMINIQUE ID NOW STREP A Routine 03/04/2024 2:17 PM EST Sore throat AUTOMATED VISUAL FIELD, EXTENDED - OU - BOTH EYES Routine 02/24/2024 3:30 PM EST Optic nerve hemorrhage, left BI MAMMOGRAM SCREENING TOMOSYNTHESIS BILATERAL Routine 02/24/2024 12:25 PM EST Encounter for screening mammogram for malignant neoplasm of breast HPV MRNA E6/E7 REFLEX TO HPV 16, 18/45 Routine 12/05/2022 11:51 AM EDT PAP SMEAR Routine 12/05/2022 11:51 AM EDT LIPID PANEL, STANDARD Routine 12/05/2020 3:13 PM EDT HM COLONOSCOPY Routine 05/31/2020 from Last 3 Months or Most Recently Relevant to Health Maintenance Results * POCT BI-14 Urine Drug Screen (04/04/2024 9:58 AM EST) Oxycodone Screen, Urine Positive Urine Urine specimen obtained by clean catch procedure / Unknown 04/04/2024 9:58 AM EST Narrative Freya Lr RN - 04/04/2024 9:58 AM EST UTOX cup Lot#[id number] Exp. 12/01/25 Internal Pass Control us Diane Dwyer MD POINT OF CARE TEST EN TER/EDIT ORDERABLES Final Result * POCT Rapid Influenza B DOMINIQUE ID NOW (03/04/2024 2:25 PM EST) Influenza B Negative Negative, Indeterminate [facility] QC Media Lot # [id number] [facility] Lot# Expiration Date [phone] [facility] Swab 03/04/2024 2:25 PM EST us Tere Carcamo MD POINT OF CARE TEST ENTER/EDIT ORDERABLES Final Result [facility] [address] [place] [phone] * POCT Rapid Influenza A DOMINIQUE ID NOW (03/04/2024 2:24 PM EST) Influenza A Negative Negative, Indeterminate [facility] QC Media Lot # [id number] [facility] Lot# Expiration Date 595, [facility] Swab 03/04/2024 2:24 PM EST Tere Carcamo MD POINT OF CARE TEST ENTER/EDIT ORDERABLES Final Result [facility] [address] [place] [address] [phone] * POCT Rapid Covid-19 DOMINIQUE ID NOW (03/04/2024 2:23 PM EST) Pathologist [facility] Coronavirus Antigen PCR Negative Negative, Indeterminate, None Detected, Invalid, Specimen unsatisfactory for evaluation, Weakly Positive QC Media Lot # [id number] Lot# Expiration Date Swab 03/04/2024 2:23 PM EST Tere Carcamo MD POINT OF CARE TEST ENTER/EDIT ORDERABLES Final Result * (ABNORMAL) POCT Rapid Strep A DOMINIQUE ID NOW (03/04/2024 2:17 PM EST) [facility] Rapid Strep A Screen Positive( A) Negative, None Detected QC Media Lot # [id number] Lot# Expiration Date 597, Swab 03/04/2024 2:17 PM EST Tere Carcamo MD POINT OF CARE TEST ENTER/EDIT ORDERABLES Final Result * Automated Visual Field, Extended - OU - Both Eyes (02/24/2024 3:30 PM EST) Narrative Tami Mcintosh, OD - 02/26/2024 12:48 PM EST VISUAL FIELD INTERPRETATION Visual Field Interpretation Test Details: G P Pulsar/200/TOP Reliability Indices: False positive errors OD: 0/10 OS: 0/8 False negative errors OD: 0/10 OS: 0/9 Statistical Indices: MS [src]: OD: 22.3 OS: 21.5 MD [< 2.0 src]: OD: -0.4 OS: 0.4 sLV [< 2.5 src]: OD: 1.6 OS: 1.8 Impression: Reason for testing: Suspected optic nerve hemorrhage in the left eye. Papilledema vs pseudopapilledema in both eyes. Test Reliability: Reliable in both eyes. No false negatives/positives. Impression: Right eye: No definite defects present. Left eye: No definite defects present. Progression: No other tests available for comparisons Management Plan: No field defects present to support either glaucoma or blind spot enlargement. Will have the patient return in 3 months for monitoring. us Tami Mcintosh OD OPHTH VISUAL FIELD Final Resu lt * BI Mammogram Screening Tomosynthesis Bilateral (02/24/2024 12:25 PM EST) Anatomical Region Laterality Modality Breast Bilateral Mammography 02/24/2024 12:2 5 PM EST Narrative 03/07/2024 3:24 PM EST ? [facility] ? [address] ?[place] [address] ? Mammography Report ? Signed ? Patient: Juanita Borden ?MR#: [id number] ?? [id number] ? : 1970 ?Acct:[id number] ? Age/Sex: 54 / F ?ADM Date: 12/18/24 ? Loc: HO.MAMMO ? Attending Dr: Diane Dwyer MD ? Ordering Physician: Diane Duff MD ?Results: ?? 2Benign Findings ? Date of Service: 12/18/24 ?Follow Up: 1 Year From Orig ?? inal Mammogram ? Procedure(s): MM tomosynthesis screening BI ?? Accession Number(s): [id number] ? cc: Diane Duff MD ? EXAMINATION: ?? MM SCREENING DIGITAL BREAST TOMOSYNTHESIS, BILATERAL ? CLINICAL INFORMATION: ? Screening. Asymptomatic. ? COMPARISON: ?? Mammography: Comparison is made with available priors ? TECHNIQUE: ?? Digital breast mammography with tomosynthesis is performed in both the ?? craniocaudal and mediolateral oblique views along with computer-aided ?? detection (CAD). ? FINDINGS: ?? There are scattered areas of fibroglandular density (ACR BI-RADS breast ?? composition Category b). ?? Scattered bilateral asymmetries are stable. ?? There are no significant masses, abnormal calcifications, or other ?? abnormalities. ? MM/MM tomosynthesis screening BI ?? IMPRESSION: ?? No mammographic evidence of malignancy. ? ASSESSMENT: ? BI-RADS BI-RADS 2 - Benign Findings ? RECOMMENDATION: ?? Routine annual mammography screening. ? 1 year F/U ? This examination should not preclude the clinical evaluation of a ?? suspicious palpable abnormality. ? This patient's information was entered into a reminder system with a ?? target due date for their next mammogram. ? Electronically signed by: ??Alicia Gregory DO ??03/07/2024 03:21 PM EST ? Dictated By: ?Alicia Gregory DO ? Signed By: ?<Electronically signed by Alicia Gregory, DO in OV> ? 03/07/24 1521 ? DD/ 1225 ? TD/TT: 02/24/24 1245 ? Chipper: ? Procedure Note Yasmani, Juni - 03/07/2024 [facility] [address] [place] [address] [place] [address] Mammography Report Signed Patient: Juan Juanita Jolly#: M [id number] : 1970Acct:[id number] Age/Sex: 54 / FADM Date: 02/24/24 Loc: HO.MAMMO Attending Dr: Diane Dwyer MD Ordering Physician: Diane Duff MDResults: 2Benign Findings Date of Service: 02/24/24Follow Up: 1 Year From Orig ina Mammogram Procedure(s): MM tomosynthesis screening BI Accession Number(s): [id number] cc: Diane Duff MD EXAMINATION: MM SCREENING DIGITAL BREAST TOMOSYNTHESIS, BILATERAL CLINICAL INFORMATION: Screening. Asymptomatic. COMPARISON: Mammography: Comparison is made with available priors TECHNIQUE: Digital breast mammography with tomosynthesis is performed in both the craniocaudal and mediolateral oblique views along with computer-aided detection (CAD). FINDINGS: There are scattered areas of fibroglandular density (ACR BI-RADS breast composition Category b). Scattered bilateral asymmetries are stable. There are no significant masses, abnormal calcifications, or other abnormalities. MM/MM tomosynthesis screening BI IMPRESSION: No mammographic evidence of malignancy. ASSESSMENT: BI-RADS BI-RADS 2 - Benign Findings RECOMMENDATION: Routine annual mammography screening. 1 year F/U This examination should not preclude the clinical evaluation of a suspicious palpable abnormality. This patient's information was entered into a reminder system with a target due date for their next mammogram. Electronically signed by: Alicia Gregory DO 03/07/2024 03:21 PM [facility] [place] Dictated By: Alicia Gregory DO Signed By: <Electronically signed by Alicia Gregory DO in OV> 03/07/24 1521 DD/ 1225 TD/TT: 02/24/24 1245 Chipper: us Diane Dwyer MD IMG BI PROCEDURES Fin al Result * HPV mRNA E6/E7 w/Reflex to HPV Genotypes 16, 18/45 (12/05/2022 11:51 AM EDT) HPV nRNA E6/E7 Not Detected Not Detected [facility] Comment:Methodology: Transcr iption-Mediated AmplificationThis assay detects E6/E7 viral messenger RNA (mRNA) from 14high-risk HPV types (16,18,31,33,35,39,45,51,52,56,58,59,66,68).Cervical sources are required for HPV testing.If a vaginal source from a patient who has had atotal hysterectomy with removal of cervix wassubmitted, please contact the testing laboratoryfor alternative testing options.For additional information, please refer tohttp://education.Mind Palette/faq/WBI214e0(This link if provided for information/educational purposes only.)THIS TEST WAS PERFORMED AT:[facility] [employer] [facility] [place] [phone] KONG MD HPV mRNA E6/E7 [facility] HPV 16 RNA [facility] HPV 18/45 RNA [facility] 12/05/2022 11:5 1 AM EDT 12/08/2022 8:50 AM EDT Diane Dwyer MD LAB CYTOLOGY ORDERABL ES Final Result [facility] [address] [place] [address] [phone] * Pap Smear (12/05/2022 11:51 AM EDT) 12/05/2022 11:5 1 AM EDT 12/08/2022 8:50 AM EDT Narrative [facility] - 12/12/2022 11:16 AM EDT ----- ------- Name: Juanita Borden ?Age/Sex: 52/F ? : 1970 Unit#: [id number] ?? Attend Dr: Diane Duff MD ?Re12/05/22 ?Status: DEP REF ? Location: HO.LNP ?Disch: ? ----- ------- SPEC : [id number] ?RECD: 12/08/2238 ? STATUS: ??SOUT ? REQ NUM: [id number] ? HEMANTH: 12/05/22-115 ? SUBM DR: Diane Duff MD ? ENTERED: ??12/08/225828 ?SP TYPE: Pap Smr ?OTHR DR: ? ORDERED: ??Pap Smear ? Interpretation ?? Satisfactory for evaluation. ?? No endocervical cells seen. ?? Negative for intraepithelial lesion or malignancy. ?HPV mRNA E6/E7: ?NOT DETECTED ? This assay detects E6/E7 viral messenger RNA (mRNA) from 14 high-risk HPV types (16, 18, ?? 31, 33, 35, 39, 45, 51, 52, 56, 58, 59, 66, 68) ?? HPV testing performed by [facility], [place], [place]. ??See reference laboratory ?? pion of the EMR for entire report. ?Clinical Information LMP: Unknown date Previous PAP test: Unknown date/findings ? Material Received ?? ThinPrep-Vaginal/Cervical ----- ------- Signed (signature on file) BECKI Clark (ASCP) 12/12/22 1116 ? ----- ------- ? END OF REPORT ? us Diane Dwyer MD LAB CYTOLOGY ORDERABL ES Final Result [facility] [address] [place] [phone] * LIPID PANEL, STANDARD (12/05/2020 3:13 PM EDT) Pathologist [facility] Chol/HDLC Ratio 2.5 <5.0 (calc) [facility] Cholesterol, Total 193 <200 mg/dL [facility] HDL Cholesterol 76 > OR = 50 mg/dL [facility] LDL Cholesterol 95 mg/dL (calc) [facility] Comment: Reference range: <100 ?? Desirable range <100 mg/dL for primary prevention; ?? <70 mg/dL for patients with CHD or diabetic patients ?? with > or = 2 CHD risk factors. ?? LDL-C is now calculated using the Aylin ?? calculation, which is a validated novel method providing ?? better accuracy than the Friedewald equation in the ?? estimation of LDL-C. ?? Jorge BRO et al. STACEY. 2013;310(19): 6304-2674 ?? (http://DataPad.Cloudary/faq/GCP872) Non-HDL Cholesterol 117 <130 mg/dL (calc) [facility] Comment: For patients with diabetes plus 1 major ASCVD risk ?? factor, treating to a non-HDL-C goal of <100 mg/dL ?? (LDL-C of <70 mg/dL) is considered a therapeutic ?? option. Triglycerides 122 <150 mg/dL [facility] 12/05/2020 3:13 PM EDT Landy Downs NP LAB BLOOD ORDERABLES Final Resu lt [facility] [address] * Colonoscopy (05/31/2020) Pathologist [facility] Colonoscopy Normal Normal Narrative Roxann Tariq - 05/31/2020 Recommended 3 year follow up Historical Provider HEALTH MAINTENANCE Final Result from Last 3 Months or Most Recently Relevant to Health Maintenance Insurance [facility] Care Teams Farmer And Grazier Relationship Specialty Start Date End Date Diane Duff MD [address] [place] [address] PCP - General Family Medicine 02/03/18
--- OUTSIDE RECORDS SUMMARY | 2024-04-13 16:38 | XMS_ITS | Encounter Summary ---
Author Organization [employer] Address [address] [place] [address] [address]t [place] [address] Care Team Providers Care Home Visitor Home Base Head Start Name Role Phone Diane Duff MD Primary Care Provide r Reason for Visit * Reason Onset Date Comments Med Refill 08/19/2022 Encounter Details Date Type Department Care Team ([facility] st Contact Info) Description 08/19/2022 Telephone [facility] MEDICINE [address] [place] [address] Diane Duff MD [address] [place] [address] Med Refill Social History Tobacco Use Types [...] Orientation Straight 01/06/2022 10 :15 AM EDT COVID-19 Exposure Response Date Recorded In the last 10 days, have yo u been in contact with someone who was confirmed or suspected to have Coronavirus/COVID-19? No / Unsure 08/11/2022 10:53 AM EDT documented as of this encounter Miscellaneous Notes * Telephone Encounter - Fina New - 08/19/2022 1:48 PM EDT Tc from pt requesting medication refill for oxyCODONE-acetaminophen (Percocet) 10-325 MG tablet to be sent to [facility] pharmacy. States pharmacy on file does not have medication. documented in this encounter Plan of Treatment Upcoming Encounters Date Type Department Care Team (Late st Contact Info) Description 05/16/2024 3:30 PM EDT Telemedicine [facility] MEDICINE [address] [place] [address] Diane Duff MD [address] [place] [address] 05/24/2024 3:30 PM EDT Office Visit [facility] OPTOMETRY [address] [place], [place] [phone] Tami Mcintosh, OD [address] [place] [address] 07/11/2024 10:00 AM EDT Clinical Support [facility] MEDICINE [address] [place] [address] Freya Lr, RN documented as of this encounter Visit Diagnoses Not on filedocumented in this encounter Additional Health Concerns Assessment Noted Time PHQ-9 Depression Total Score: 7 08/07/19 23 4:00 PM EDT documented as of this encounter Care Teams Home Visitor Home Base Head Start Relationship Specialty Start Date End Date iDane Duff MD [address] [place] [address] PCP - General Family Medicine 02/03/18 documented as of this encounter
--- OUTSIDE RECORDS SUMMARY | 2024-04-13 16:38 | XMS_ITS | Encounter Summary ---
Author Organization [employer] Address [address] [facility] 7t [place] [address] Care Team Providers Care Leather Fitter Name Role Phone Diane Duff MD Primary Care Provide r Encounter Details Date Type Department Care Team ([facility] st Contact Info) Description 12/17/2022 Abstract [facility] MEDICINE [address] [place] [address] Diane Duff MD [address] [place] [address] Social History Tobacco Use Types Packs/Day Years [...] EDT Telemedicine [facility] MEDICINE [address] [place] [address] Diane Duff MD [address] [place] [address] 05/24/2024 3:30 PM EDT Office Visit [facility] OPTOMETRY [address] [place] [address] Arnaldo, Tami, OD [address] [place] [address] 07/11/2024 10:00 AM EDT Clinical Support [facility] MEDICINE [address] [place] [address] Freya Lr RN documented as of this encounter Procedures Procedure Name Priority Date/Time Associated Diagnosis Comments COLONOSCOPY Routine 05/31/2020 documented in this encounter Results * Colonoscopy (05/31/2020) Colonoscopy Normal Normal Narrative Roxann Tariq - 05/31/2020 Recommended 3 year follow up us Historical Provider HEALTH MAINTENANCE Final Result documented in this encounter Visit Diagnoses Not on filedocumented in this encounter Additional Health Concerns Assessment Noted Time PHQ-9 Depression Total Score: 7 08/07/19 23 4:00 PM EDT documented as of this encounter Care Teams Leather Fitter Relationship Specialty Start Date End Date Diane Duff MD [address] [place] [address] PCP - General Family Medicine 02/03/18 documented as of this encounter
--- OUTSIDE RECORDS SUMMARY | 2024-04-13 16:38 | XMS_ITS | Encounter Summary ---
Author Organization [employer] Address [address] [place] [address] 7t [place] [address] Care Team Providers Care Biodiesel Process Control Technician Name Role Phone Diane Duff MD Primary Care Provide r Reason for Visit * Reason Onset Date Comments Recommend BUILDING MATERIALS SALES ATTENDANT Tier 2 04/04/2024 Encounter Details Date Type Department Care Team ([facility] st Contact Info) Description 04/04/2024 Telephone [facility] MEDICINE [address] [place] [address] Freya Lr, TROY Recommend BUILDING MATERIALS SALES ATTENDANT Tier 2 Social History Tobacco Use Types Packs/Day [...] Encounter - Freya Lr RN - 04/04/2024 7:33 AM EST What BUILDING MATERIALS SALES ATTENDANT Tier would you like this patient to be? I recommend Tier 2, please let me know if you agree or would rather patient be in another BUILDING MATERIALS SALES ATTENDANT Tier. Tier 1 = HIGH RISK, Monthly BUILDING MATERIALS SALES ATTENDANT visits Tier 2 = MODerate RISK, Q3 Month visits Tier 3 = LOW RISK = Q4-6 month visits documented in this encounter Plan of Treatment Upcoming Encounters Date Type Department Care Team (Late st Contact Info) Description 05/16/2024 3:30 PM EDT Telemedicine [facility] MEDICINE [address] [place] [address] Diane Duff MD [address] [place], [place] [phone] 05/24/2024 3:30 PM EDT Office Visit [facility] OPTOMETRY [address] [place] [address] Tami Mcintosh, OD [address] [place] [address] 07/11/2024 10:00 AM EDT Clinical Support [facility] MEDICINE [address] [place] [address] Freya Lr RN documented as of this encounter Visit Diagnoses Not on filedocumented in this encounter Additional Health Concerns Assessment Noted Time PHQ-9 Depression Total Score: 9 01/14/20 24 4:07 PM EST documented as of this encounter Care Teams Biodiesel Process Control Technician Relationship Specialty Start Date End Date Diane Duff MD [address] [place] [address] PCP - General Family Medicine 02/03/18 documented as of this encounter
[2024-04-13 17:06] LABS: Basophils Percent Auto 0.7 % (0-2); Eosinophils Absolute Auto 0.1 X10*3/uL (0.0-0.4); Eosinophils Percent Auto 1.4 % (0-4); Hematocrit 34.8 % (37.0-47.0); Hemoglobin 10.6 g/dl (12.0-16.0); Imm Gran Abs Auto 0.02 X10*3/uL (0.00-0.03); Imm Gran Pct Auto 0.4 % (0.0-0.4); Lymphocytes Absolute Auto 1.8 X10*3/uL (1.2-4.9); Lymphocytes Percent Auto 33.3 % (20-40); Mean Corpuscular HGB Conc 30.5 g/dl (31.0-35.0); Mean Corpuscular Hemoglobin 26.8 pg (27.0-33.0); Mean Corpuscular Volume 87.9 fL (80.0-98.0); Mean Platelet Volume 10.7 fL (9.4-12.3); Monocytes Absolute Auto 0.5 X10*3/uL (0.1-1.2); Monocytes Percent Auto 9.4 % (2-11); Neutrophils Percent Auto 54.8 % (45-73); Platelet Count 220 X10*3/uL (160-400); Red Blood Count 3.96 X10*6/uL (4.20-5.50); Red Cell Distribution Width 14.9 % (11.0-16.0); White Blood Count 5.5 X10*3/uL (4.8-10.8)
[2024-04-13 20:10] LABS: Erythrocyte Sedimentation Rate 31 MM/HR (0-20)
[2024-04-15 16:03] LABS: Anti-Centromere B Antibodies <1.0 NEG AI (<1.0 NEG)
[2024-04-15 20:39] LABS: SM/Ribonucleoprotein Ab <1.0 NEG AI (<1.0 NEG); Smith Protein <1.0 NEG AI (<1.0 NEG)
[2024-04-20 14:19] LABS: ANA Pattern 2 Nuclear, Speckled; Anti Nuclear Antibody Screen POSITIVE (NEGATIVE)
== END 2024-04-13 16:03 | disposition home or self-care (01) ==
LOC: HO.LAB 16:02
PROVIDERS: PCP Internal Medicine; Visit Provider Physician Assistant Medical
DX: L71.8 Other rosacea (principal); M34.1 CR(E)ST syndrome
CPT/HCPCS: 36415; 85025; 85652; 86038; 86039; 86140; 86235

== ENCOUNTER 2024-07-19 12:25 | Outpatient (AMB) | payer OTHER, SELFPAY ==
--- NOTE | 2024-07-19 12:49 | A.OFFVIS_ITS ---
Vital Signs 07/19/24 12:50 Height 5 ft 1 in Weight 192 lb BMI 36.3 BP 112/62 Blood Pressure Location Rt brachial Position Sitting Pulse 76 Pulse Source Pulse Oximeter Pulse Oximetry (%) 98 Oxygen Delivery Method Room Air Intake Visit Reasons: Gerd & Colonoscopy Screening Intake Note: NEW PATIENT for eval of GERD + possible initial colo. CC; C.O. constipation despite taking senna. Pt states PPI is working OK. FMHx involving her son and father (CRC). No additional concerns at this time. Mosaic Tile Maker Required: Yes Mosaic Tile Maker Services: Mosaic Tile Maker Present Mosaic Tile Maker Name: [email or web address] [id number] Information Interpreted: clinical only Accompanied by: Self / Same As Patient Allergies No Known Allergies Allergy (Verified 07/19/24 12:50) HPI HPI Gerd & Colonoscopy Screening: Details: LAST VISIT WITH ELENA ODELL JUNE 2020 (1) Colon polyp: Comment: Per Dr. Husain- PLAN: Followup colonoscopy will be dictatated by the pathology of the bx of the valve. Path area on valve reported as lymphoid, would like this reviewed this before 5 years. Other polyps TA any way--RECALL-3year Code(s): K63.5 - Polyp of colon Category: Medical Patient Instructions: Pleasant 50-year-old female follows up after recent index screening colonoscopy with polypectomy. We reviewed procedure report and pathology. She had 1 tubular adenoma as lymphoid with mild reactive change. Discussed importance of all first-degree relatives begin screening at age 40. Recommend asymptomatic colonoscopy 3 years Encouraged to call with questions or concerns 54 year old? female with past medical history of arthritis, asthma, COPD, hypertension, renal insufficiency, history of gastric sleeve, tubal ligation, here today for pre colonoscopy screening.? Last colonoscopy was in 2020 and tubular adenoma found. As mentioned above recommendation for 3 year follow-up. ? Currently patient is taking PPI and her symptoms of acid reflux are suppressed. Patient reports that she is only taking pantoprazole as needed. Patient reports constipation. Currently is taking stool softener and senna and reports that she continues to feel constipated. Denies melena, hematochezia, unintentional weight loss or ribbon like stools. Family history of CRC.? Denies history of difficulty with sedation or anesthesia in the past.? Negative for history of sleep apnea.? Denies any history of cardiac, renal, pulmonary, or hepatic disease.?? No history of infectious? diseases like hepatitis A, B, C, HIV or tuberculosis.? Patient is not on any anticoagulation [facility] Medical History (Updated 07/19/24 @ 20:42 by Ana Laura Chin [facility]) Tubular adenoma Renal cyst Hematuria Allergic rhinitis Cough Family history of colon cancer in father Obesity Schwannoma of nerve of neck Carpal tunnel syndrome Arthritis Renal insufficiency COPD (chronic obstructive pulmonary disease) Asthma HTN (hypertension) Surgical History History of esophagogastroduodenoscopy (EGD) Hx of tubal ligation History of sleeve gastrectomy Family History Father No problems noted. Mother Diabetes Hypertension Son Colon cancer Brother No problems noted. Brother Diabetes Sister No problems noted. Social History Household Members: Spouse Alcohol intake: never Patient Tobacco Use Status: Never used Tobacco Current occupational status: disabled Review of Systems Const Denies weight gain and Denies weight loss ENT Reports no additional complaints, Denies dysphagia and Denies odynophagia Card Reports no additional complaints Resp Reports no additional complaints GI Denies abdominal pain, Denies belching, Denies melena, Denies bloating, Denies change in bowel habits, Reports constipation, Denies dysphagia, Denies excessive flatus, Denies dyspepsia, Denies heartburn, Denies diarrhea, Denies loose stools, Denies nausea, Denies odynophagia and Denies vomiting Reports no additional complaints Musc Reports no additional complaints Neuro Reports no additional complaints Psych Reports no additional complaints Endo Reports no additional complaints Physical Exam Vital Signs: Last Vital Signs Pulse 76 07/19/24 12:50 BP 112/62 07/19/24 12:50 Pulse Ox 98 07/19/24 12:50 Oxygen Delivery Method Room Air 07/19/24 12:50 BMI result Body Mass Index 36.3 Const General: healthy appearing, no acute distress and well developed Nutritional Appearance: well nourished Orientation/consciousness: patient oriented x3 Resp Effort & Inspection: normal respiratory effort, able to speak in complete sentences, no tracheal deviation and symmetric chest movement Auscultation: clear to auscultation bilaterally Cardio Rate: regular rate GI Inspection: Yes normal to inspection and No distended Palpation (GI): Soft to palpation, not firm, nontender and No hepatosplenomegaly present Auscultation: normal bowel sounds General: Yes no CVA tenderness Back/Spine/Pelvis Back: no CVA tenderness Skin General skin exam: elasticity normal, turgor normal and dry skin Neuro General: patient oriented x3 Psych Appearance: grossly normal Assessment & Plan Assessment & Plan (1) Tubular adenoma: Code(s): D36.9 - Benign neoplasm, unspecified site Category: Medical (2) Screen for colon cancer: Code(s): Z12.11 - Encounter for screening for malignant neoplasm of colon Plan Patient will continue taking pantoprazole as needed. Patient will start taking Dulcolax daily. Increase fluid intake and activity to promote better bowel motility. What to expect before during and after procedure discussed with patient. Stressed the importance of good bowel prep and clear liquid diet. Patient will follow-up with us after the procedure, sooner on as needed basis. She is agreeable to this plan and verbalizes understanding of instructions. She was given the opportunity to ask questions and all questions answered. Thank you for allowing me to participate in her care Medications: New polyethylene glycol 3350 (Miralax) As directed by gastro[facility]ology department at [facility] 238 grams PO ONCE 238 grams 0RF Z12.11 - Encounter for screening for malignant neoplasm of colon bisacodyl (Dulcolax (bisacodyl)) 10 mg (2 x 5 mg) PO BEDTIME 180 tabs 4RF bisacodyl (Dulcolax (bisacodyl)) take 4 tabs at noon the day before your colonoscopy 20 mg (4 x 5 mg) PO ONCE 1 day 4 tabs 0RF Z12.11 - Encounter for screening for malignant neoplasm of colon Coding Level of Care Code New Pt Level 3 (45747) Diagnoses Tubular adenoma D36.9 Screen for colon cancer Z12.11 Time Spent (min) 40 Comment 30 minutes spent with patient and additional 10 minutes spent reviewing her records
[2024-07-19 12:50] VITALS: BP 112/62; PULSE 76; O2SAT 98; BMI 36.3
--- OUTSIDE RECORDS SUMMARY | 2024-07-19 13:32 | XMS_ITS | Encounter Summary ---
Author Organization [employer] Address [address] [facility] 7t [place] [address] Care Team Providers Care Information Security Consultant Name Role Phone Diane Duff MD Primary Care Provide r Reason for Visit * Reason Onset Date Comments Med Refill 12/18/2022 Encounter Details Date Type Department Care Team ([facility] st Contact Info) Description 12/18/2022 Telephone [facility] MEDICINE [address] [place], [place] [phone] Diane Duff MD [address] [place], [place] [phone] Med Refill Social History Tobacco Use Types [...] Care Team (Late st Contact Info) Description 08/24/2024 3:30 PM EDT Office Visit [facility] OPTOMETRY [address] [place], [place] [phone] Tami Mcintosh, OD [address] [place] [address] 09/06/2024 10:00 AM EDT Clinical Support [facility] MEDICINE [address] [place] [address] Freya Lr, RN documented as of this encounter Visit Diagnoses Not on filedocumented in this encounter Additional Health Concerns Assessment Noted Time PHQ-9 Depression Total Score: 7 08/07/19 23 4:00 PM EDT documented as of this encounter Care Teams Information Security Consultant Relationship Specialty Start Date End Date Diane Duff MD [address] [place], [place] [phone] PCP - General Family Medicine 02/03/18 documented as of this encounter
--- OUTSIDE RECORDS SUMMARY | 2024-07-19 13:32 | XMS_ITS | Encounter Summary ---
Author Organization [employer] Address [address] [facility] 7t [place] [address] Care Team Providers Care Flatwork Finisher Name Role Phone Diane Duff MD Primary Care Provide r Reason for Visit * Reason Onset Date Comments Med Refill 08/24/2023 Encounter Details Date Type Department Care Team ([facility] st Contact Info) Description 08/24/2023 Telephone [facility] MEDICINE [address] [place], [place] [phone] Diane Duff MD [address] [place], [place] [phone] Med Refill Social History Tobacco Use Types Packs/Day Years Used Date Smoking Tobacco: Never Passive Smoke Exposure: Never Smokeless Tobacco: Never Depression Answer Date Recorded Patient Health Questionnaire-9 Score 7 08/06/2022 Housing Stability Answer Date Recorded What is your housing situation today? I have joankelsey peters 12/23/[address] you [...] pended to PCP. * Telephone Encounter - Flroa Martin - 08/24/2023 11:44 AM EDT TC from pt requesting medication refill. Medications needing refill : senna (Senokot) 8.6 MG tablet To be sent to: [facility]/pharmacy #[id number] [place] [address] - [address] [place] [address] documented in this encounter Plan of Treatment Upcoming Encounters Date Type Department Care Team (Late st Contact Info) Description 08/24/2024 3:30 PM EDT Office Visit [facility] OPTOMETRY [address] [place] [address] Arnaldo, Tami, OD [address] [place] [address] 09/06/2024 10:00 AM EDT Clinical Support [facility] MEDICINE [address] [place] [address] Freya Lr RN documented as of this encounter Visit Diagnoses Not on filedocumented in this encounter Additional Health Concerns Assessment Noted Time PHQ-9 Depression Total Score: 7 08/07/19 23 4:00 PM EDT documented as of this encounter Care Teams Flatwork Finisher Relationship Specialty Start Date End Date Diane Duff MD [address] [place] [address] PCP - General Family Medicine 02/03/18 documented as of this encounter
--- OUTSIDE RECORDS SUMMARY | 2024-07-19 13:32 | XMS_ITS | Encounter Summary ---
Author Organization [employer] Address [address] [facility] [address]t [place] [address] Care Team Providers Care Sales Record Clerk Name Role Phone Diane Duff MD Primary Care Provide r Reason for Visit * Reason Onset Date Comments Med Refill 08/19/2022 Encounter Details Date Type Department Care Team ([facility] st Contact Info) Description 08/19/2022 Telephone [facility] MEDICINE [address] [place], [place] [phone] Diane Duff MD [address] [place], [place] [phone] Med Refill Social History Tobacco Use Types [...] pt requesting medication refill for oxyCODONE-acetaminophen (Percocet) 10325 MG tablet to be sent to [facility] pharmacy. States pharmacy on file does not have medication. documented in this encounter Plan of Treatment Upcoming Encounters Date Type Department Care Team (Late st Contact Info) Description 08/24/2024 3:30 PM EDT Office Visit [facility] OPTOMETRY [address] [place], [place] [phone] Tami Mcintosh, OD [address] [place] [address] 09/06/2024 10:00 AM EDT Clinical Support [facility] MEDICINE [address] [place], [place] [phone] Freya Lr RN documented as of this encounter Visit Diagnoses Not on filedocumented in this encounter Additional Health Concerns Assessment Noted Time PHQ-9 Depression Total Score: 7 08/07/19 23 4:00 PM EDT documented as of this encounter Care Teams Sales Record Clerk Relationship Specialty Start Date End Date Diane Duff MD [address] [place], [place] [phone] PCP - General Family Medicine 02/03/18 documented as of this encounter
--- OUTSIDE RECORDS SUMMARY | 2024-07-19 13:32 | XMS_ITS | Encounter Summary ---
Author Organization [employer] Address 75 [facility] 7t [place] [address] Care Team Providers Care Fisher Gill Net Name Role Phone Diane Duff MD Primary Care Provide r Reason for Visit * Reason Comments Med Refill Encounter Details Date Type Department Care Team ([facility] st Contact Info) Description 01/04/2023 Refill [facility] MEDICINE [address] [place], [place] [phone] Diane Duff MD [address] [place], [place] [phone] Class 2 severe obesity due to excess [...] t he electric, gas, oil or water Mozy threatened to shut off services in your [...] Description 08/24/2024 3:30 PM EDT Office Visit [facility] OPTOMETRY [address] [place], [place] [phone] Tami Mcintosh, OD [address] [place] [address] 09/06/2024 10:00 AM EDT Clinical Support [facility] MEDICINE [address] [place] [address] Freya Lr, TROY documented as of this encounter Visit Diagnoses Diagnosis Class 2 severe obesity due to excess calories with serious comorbidity and body mass index (BMI) of 36.0 to 36.9 in adult (CMS/HCC) documented in this encounter Additional Health Concerns Assessment Noted Time PHQ-9 Depression Total Score: 7 08/07/19 23 4:00 PM EDT documented as of this encounter Care Teams Fisher Gill Net Relationship Specialty Start Date End Date Diane Duff MD [address] [place], [place] [phone] PCP - General Family Medicine 02/03/18 documented as of this encounter
--- OUTSIDE RECORDS SUMMARY | 2024-07-19 13:32 | XMS_ITS | Encounter Summary ---
Author Organization [employer] Address 75 [facility] 7t [place] [address] Care Team Providers Care Heading And Priming Tool Setter Name Role Phone Diane Duff MD Primary Care Provide r Encounter Details Date Type Department Care Team (Late st Contact Info) Description 12/17/2022 Abstract [facility] MEDICINE [address] [place], [place] [phone] Diane Duff MD 230 [place], [place] [phone] Social History Tobacco Use Types Packs/Day Years [...] Description 08/24/2024 3:30 PM EDT Office Visit [facility] OPTOMETRY [address] [place], [place] [phone] Arnaldo, Tami, OD [address] [place] [address] 09/06/2024 10:00 AM EDT Clinical Support [facility] MEDICINE [address] [place], [place] [phone] Freya Lr RN documented as of this encounter Procedures Procedure Name Priority Date/Time Associated Diagnosis Comments COLONOSCOPY Routine 05/31/2020 documented in this encounter Results * Hm Colonoscopy (05/31/2020) Colonoscopy Normal Normal Narrative Roxann Tariq - 05/31/2020 Recommended 3 year follow up Historical Provider HEALTH MAINTENANCE Final Result documented in this encounter Visit Diagnoses Not on filedocumented in this encounter Additional Health Concerns Assessment Noted Time PHQ-9 Depression Total Score: 7 08/07/19 23 4:00 PM EDT documented as of this encounter Care Teams Heading And Priming Tool Setter Relationship Specialty Start Date End Date Diane Duff MD [address] [place], [place] [phone] PCP - General Family Medicine 02/03/18 documented as of this encounter
--- OUTSIDE RECORDS SUMMARY | 2024-07-19 13:32 | XMS_ITS | Clinical Summary ---
Author Organization [employer] Address 75 [facility] 7t [place] [address] Care Team Providers Care Seismology Technical Officer Name Role Phone Diane Duff MD [...] Active beta carotene (vitamin A) 3 MG (73954 UT) capsule take 1 capsule by oral route every day 018 Active sucralfate (Carafate) 1 GM/10ML suspension take 10 milliliter by oral route 2 times every day on an empty stomach 1 hour before meals and at bedtime 018 Active Multiple Vitamins-Mineral s (Multi Adult Gummies) chewable tablet Chew 1 gummy daily 018 Active Nebulizers (Compressor/Nebu lizer) mis PULMO-AIDE COMPRESSOR 012 Active Respiratory Therapy Supplies (Nebulizer Mask Adult) misc One mask, pt has nebulizer, use with nebulizer prn. Adult mask Active ipratropium-albu terol (Combivent Respimat) 20-100 MCG/ACT inhalerIndicatio ns:Asthma-chroni c obstructive pulmonary disease overlap syndrome (CMS/HCC) inhale 1 puff by inhalation route 4 times every day ; may take additional puffs as needed not to exceed 6 puffs in 24hrs 4 g 5 023 Active Spacer/Aero-Hold ing Chambers (AeroChamber Z-Stat Plus) inhaler 1 each by Other route if needed (as directed). Aerochamber Plus Z Stat spacer Use as needed 1 each 023 Active triamcinolone (Kenalog) 0.1 % creamIndications :Nummular dermatitis Mix 80g tube of Triamcinolone 0.1% cream with 16oz jar of CeraVe cream. Apply 1-2 times per day after shower or bath from the neck down (not on face) 80 g 3 023 Active LORazepam (Ativan) 0.5 MG tabletIndication s:Anticipatory anxiety Take one tablet one hour before MRI or procedure 4 tablet 023 Active cholecalciferol 50 MCG (2000 UT) capsuleIndicatio ns:Vitamin D deficiency TAKE 1 CAPSULE BY MOUTH EVERY DAY 90 capsule 1 024 Active hydrOXYzine HCl (Atarax) 25 MG tabletIndication s:Anxiety state TAKE 1 TABLET (25 MG) BY MOUTH IF NEEDED IN THE MORNING AND AT BEDTIME FOR ANXIETY. 180 tablet 1 024 Active docusate sodium (Colace) 100 MG capsuleIndicatio ns:Other constipation TAKE 1 CAPSULE BY MOUTH TWICE A DAY 180 capsule 1 024 Active traZODone (Desyrel) 50 MG tabletIndication s:Primary insomnia Take 1 tablet (50 mg) by mouth at bedtime. 30 tablet 2 024 Active loratadine (Claritin) 10 MG tablet TAKE 1 TABLET BY MOUTH EVERY DAY NEEDED FOR ALLERGIES 90 tablet 3 024 Active gabapentin (Neurontin) 300 MG capsuleIndicatio ns:Cervical radiculopathy due to degenerative joint disease of spine TAKE 1 CAPSULE BY MOUTH THREE TIMES A DAY 90 capsule 3 024 Active albuterol 108 (90 Base) MCG/ACT inhaler 012 Active Nucala 100 MG/ML solution auto-injector 10/08/2 024 Active Ivermectin 1 % cream APPLY TO THE FACE ONCE DAILY IN THE MORNING. 024 Active ferrous sulfate 325 (65 Fe) MG tablet Take 1 tablet by mouth Once per day. 024 Active pantoprazole (ProtoNix) 40 MG EC tabletIndication s:Gastroesophage al reflux disease without esophagitis TAKE 1 TABLET BY MOUTH EVERY MORNING. SWALLOW WHOLE. 90 tablet 1 024 Active oxybutynin XL (Ditropan-XL) 10 MG 24 hr tabletIndication s:Mixed stress and urge urinary incontinence TAKE 1 TABLET BY MOUTH EVERY MORNING. DO NOT CRUSH, CHEW OR SPLIT. 90 tablet 1 024 Active Zepbound 2.5 MG/0.5ML solution auto-injectorInd ications:Class 2 severe obesity due to excess calories with serious comorbidity and body mass index (BMI) of 36.0 to 36.9 in adult (CMS/[facility]) INJECT 0.5 ML (2.5 MG) UNDER THE SKIN 1 (ONE) TIME PER WEEK. 2 mL 024 Active Senna-Time 8.6 MG tabletIndication s:Other constipation TAKE 1 TABLET BY MOUTH EVERYDAY AT BEDTIME 90 tablet 1 025 Active naloxone (Narcan) 4 mg/0.1 mL nasal sprayIndications :Other chronic pain Administer 1 spray (4 mg) into affected nostril(s) if needed for opioid reversal. May repeat every 2-3 minutes if needed, alternating nostrils, until medical assistance becomes available. 2 each 2 025 Active montelukast (Singulair) 10 MG tabletIndication s:Asthma-chronic obstructive pulmonary disease overlap syndrome (CMS/HCC) TAKE 1 TABLET BY MOUTH EVERY DAY IN THE EVENING 90 tablet 1 025 Active fluticasone (Flonase) 50 MCG/ACT nasal spray SPRAY 1 SPRAY INTO THE AFFECTED NOSTRIL(S) ONCE DAILY 16 mL 1 025 Active Airsupra 90-80 MCG/ACT aerosol PLEASE SEE ATTACHED FOR DETAILED DIRECTIONS 025 Active Tirzepatide-Weig ht Management (Zepbound) 12.5 MG/0.5ML solution auto-injectorInd ications:Severe obesity (BMI 35.0-39.9) with comorbidity (CMS/[facility]) Inject 0.5 mL (12.5 mg) under the skin 1 (one) time per week. INJECT ONE PEN (=12.5 MG) SUBCUTANEOUSLY ONCE A WEEK 2 mL 025 Active hydroCHLOROthiaz marya (HYDRODiuril) 25 MG tabletIndication s:Primary hypertension TAKE 1/2 TABLET BY MOUTH EVERY MORNING 45 tablet 1 025 Active lisinopril 2.5 MG tabletIndication s:Primary hypertension TAKE 1 TABLET BY MOUTH EVERY DAY IN THE MORNING 90 tablet 1 025 Active oxyCODONE-acetam inophen (Percocet) 10-325 MG tabletIndication s:Other chronic pain Take 1 tablet by mouth every 8 (eight) hours if needed for severe pain. 84 tablet 025 Active hydroCHLOROthiaz marya (HYDRODiuril) 25 MG tabletIndication s:Primary hypertension TAKE 1/2 TABLET BY MOUTH EVERY MORNING 45 tablet 1 024 2024 Discontinued lisinopril 2.5 MG tabletIndication s:Primary hypertension TAKE 1 TABLET BY MOUTH EVERY DAY IN THE MORNING 90 tablet 1 024 2024 Discontinued Tirzepatide-Weig ht Management (Zepbound) 10 MG/0.5ML solution auto-injectorInd ications:Severe obesity (BMI 35.0-39.9) with comorbidity (CMS/HCC) Inject 0.5 mL (10 mg) under the skin 1 (one) time per week. INJECT ONE PEN (=10 MG) SUBCUTANEOUSLY ONCE A WEEK 2 mL 025 2024 Discontinued oxyCODONE-acetam inophen (Percocet) 10-325 MG tabletIndication s:Other chronic pain Take 1 tablet by mouth every 8 (eight) hours if needed for severe pain. 84 tablet 025 2024 Discontinued(R eorder (will not trigger notification to Pharmacy)) Active Problems Problem Noted Date Diagnosed Date GERD (gastroesophageal reflux disease) Assessment & Plan (05/16/2024 4:11 PM EDT): I will refer patient to GI specialist in light of recent diagnosis of crest syndrome CREST syndrome 05/16/2024 Assessment & Plan (05/16/2024 4:11 PM EDT): Patient already been referred to rheumatology by the dermatology department advised patient to follow-up with referral and place ask for them to send me their note regarding this diagnosis Bilateral tinnitus 02/25/2024 Papilledema 02/25/2024 Chronic headaches 02/25/2024 Colon cancer screening 01/14/2024 Encounter for screening mamm ogram for malignant neoplasm of breast 01/14/2024 Other constipation 05/11/2023 Blurring of visual image of both eyes 05/11/2023 Primary insomnia 05/11/2023 Anticipatory anxiety 10/08/2022 Telangiectasia of face 08/08/2022 [...] 05/24 Anxiety state 08/25/2011 Depressive disorder 08/25/2011 Resolved Problems Problem Noted Date Diagnosed Date Resolved Date Encounter for Papanicolaou s mear for cervical cancer screening 12/05/2022 05/23/2024 Assessment & Plan (12/05/2022 11:04 AM EDT): PAP and pelvic exam done today, patient to be contacted with results Class 2 severe obesity due t o excess calories with serious comorbidity and body mass index (BMI) of 36.0 to 36.9 in adult 12/05/2022 Assessment & Plan (05/16/2024 4:12 PM EDT): Extensive counseling about diet and exercise done Next refill will be automatically to the next dose which is 10 mg weekly Assessment & Plan (01/14/2024 4:23 PM EST): I will start patient trizeptadine, patient already tried diet and exercise Assessment & Plan (12/05/2022 11:03 AM EDT): Medication discussion done, benefits and side effects reviewed Encounters Date Type Department Care Team Description 07/12/2024 Refill [facility] MEDICINE [address] [place] [address] Diane Duff MD Other chronic pain 07/09/2024 Refill [facility] WALK-IN CENTER [address] [place] [address] Diane Duff MD Primary hypertension 07/05/2024 Refill [facility] C[facility] [address] [place] [address] Diane Duff MD Primary hypertension 06/28/2024 Refill C MEDICINE [address] [place] [address] Diane Duff MD Severe obesity (BMI 35.0-39.9) with comorbidity (CMS/HCC) 06/14/2024 Refill [facility] [address] [place] [address] Diane Duff MD Other chronic pain 05/31/2024 Refill [facility] MED[facility]INE [address] [place] [address] Diane Duff MD Severe obesity (BMI 35.0-39.9) with comorbidity (CMS/HCC) 05/26/2024 Telephone [facility] MEDICINE [address] [place] [address] Diane Duff MD Durable Medical Equipment ([facility] DME Request: Walker Rollator with sea) 05/24/2024 3:30 PM EDT Office Visit [facility] OPTOMETRY [address] [place] [address] Arnaldo, Tami, OD Anomalous optic nerve (CMS/HCC) (Primary Dx); Optic nerve hemorrhage, left; Schwannoma of spinal cord (CMS/HCC); Early cataracts, bilateral 05/24/2024 Travel 05/19/2024 Refill [facility] W[facility] [address] [place] [address] Diane Duff MD 05/16/2024 3:30 PM EDT Telemedicine [facility] MEDICINE [address] [place] [address] Diane Duff MD Gastroesophageal reflux disease, unspecified whether esophagitis present (Primary Dx); CREST syndrome (CMS/HCC); Class 2 severe obesity due to excess calories with serious comorbidity and body mass index (BMI) of 36.0 to 36.9 in adult (CMS/HCC) 05/16/2024 Travel 05/12/2024 Refill [facility] MED[facility]INE [address] [place], [place] [phone] Diane Duff MD Other chronic pain 05/03/2024 Refill [facility] MED[facility]INE [address] [place], [place] [phone] Diane Duff MD Severe obesity (BMI 35.0-39.9) with comorbidity (CMS/HCC); Asthma-chronic obstructive pulmonary disease overlap syndrome (CMS/HCC) from Last 3 Months Immunizations Name Administration [...] Description 08/24/2024 3:30 PM EDT Office Visit [facility] OPTOMETRY [address] [place] [address] Arnaldo, Tami, OD [address] [place] [address] 09/06/2024 10:00 AM EDT Clinical Support [facility] [address] [place] [address] Freya Lr, RN Health Maintenance Due Date Last Done Comments [...] Cancer Screening 06/01/2023 COVID-19 Vaccine (3 - 2024-25 season) 2023 07/26/2020, 06/28/2020 Influenza Vaccine (#1) 2023 , 12/16/2018, 01/12/2018, Additional history exists Zoster Vaccines (2 of 2) 06/02/2024 04/07/2024 Alcohol/Substance Use Screening 01/13/2025 01/14/2024 Depression Screening 01/13/2025 01/14/2024, 01/14/20 24 SDOH Screening 01/13/2025 01/14/2024 Mammogram 02/23/2025 02/24/2024, 09/0 10/2021, 06/12/2020, Additional history exists Tobacco Screening 06/06/2025 06/06/2024 Lipid Panel 12/05/2025 12/05/2020 Cervical Cancer Screening [...] Procedure Name Priority Date/Time Associated Diagnosis Comments AUTOMATED VISUAL FIELD, EXTENDED - OU - BOTH EYES Routine 05/24/2024 3:30 PM EDT Anomalous optic nerve (CMS/HCC) BI MAMMOGRAM SCREENING TOMOSYNTHESIS BILATERAL Routine 02/24/2024 [...] Recently Relevant to Health Maintenance Results * Automated Visual Field, Extended - OU - Both Eyes (05/24/2024 3:30 PM EDT) Tami Dan, OD - 06/06/2024 1:57 PM EDT VISUAL FIELD INTERPRETATION Visual Field Interpretation Test Details: 32 P Pulsar/200/TOP Reliability Indices: False positive errors OD: 0/7 OS: 0/7 False negative errors OD: 0/8 OS: 0/8 Statistical Indices: MS [src]: OD: 21.2 dB OS: 19.8 dB MD [< 2.0 src]: OD: -0.1 dB OS: ?? 1.4 dB sLV [< 2.5 src]: OD: ??1.3 dB OS: ?? 3.0 dB Impression: Reason for testing: Questionable papilledema in both eyes with possible optic nerve hemorrhage in the left eye. Test Reliability: Reliable, no false negatives/positives. Impression: Right eye (OD): Unremarkable field Left eye (OS): Enlargement of blind spot extending superiorly Progression: ?? Right eye (OD): Unremarkable field Left eye (OS): Repeatable/stable enlargement of blind spot. Management Plan: Will speak with the patient's PCP. The patient needs an MRI of the brain and coordination with neurology for all of her findings. Patient should be seen at [facility], which is where she is followed for her cervical Schwannoma. She will return here in 3 months for monitoring. Tami Mcintosh OD OPHTH VISUAL FIELD Final Resu lt * BI Mammogram Screening Tomosynthesis Bilateral (02/24/2024 12:25 PM EST) Anatomical Region Laterality Modality Breast Bilateral Mammography 02/24/2024 12:2 5 PM EST Narrative 03/07/2024 3:24 PM EST ? [facility] ? [address] ?[place] [address] ? Mammography Report ? Signed ? Patient: Juan Rik,Juanita ?MR#: M ?? [id number] ? : 1970 ?Acct:[id number] ? Age/Sex: 54 / F ?ADM Date: 02/24/24 ? Loc: HO.MAMMO ? Attending Dr: Diane Dwyer MD ? Ordering Physician: Diane Duff MD ?Results: ?? 2Benign Findings ? Date of Service: 02/24/24 ?Follow Up: 1 Year From Orig ?? inal Mammogram ? Procedure(s): MM tomosynthesis screening BI ?? Accession Number(s): [id number] ? cc: Diane Duff MD ? EXAMINATION: [...] DD/ 1225 ? TD/TT: 02/24/24 1245 ? Syrup Filterer: ? Procedure Note Yasmani, Image - 03/07/2024 [facility] [address] [place] [address] Mammography Report Signed Patient: Juanita BordenMR#: M [id number] : 1970Acct:[id number] Age/Sex: 54 / FADM Date: 02/24/24 Loc: HO.MAMMO Attending Dr: Diane Dwyer MD Ordering Physician: Diane Duff MDResults: 2Benign Findings Date of Service: 02/24/24Follow Up: 1 Year From Orig inal Mammogram Procedure(s): MM tomosynthesis screening BI Accession Number(s): [id number] cc: Diane Duff MD EXAMINATION: MM SCREENING [...] by: Alicia Gregory DO 03/07/2024 03:21 PM EST Dictated By: Alicia Gregory DO Signed By: <Electronically signed by Alicia Gregory DO in OV> 03/07/24 1521 DD/ 1225 TD/TT: 02/24/24 1245 Syrup Filterer: Diane Dwyer MD IMG BI PROCEDURES Fin al Result * HPV mRNA E6/E7 w/Reflex to HPV Genotypes 16, 18/45 (12/05/2022 11:51 AM EDT) HPV nRNA E6/E7 Not Detected Not Detected [facility] Comment:Methodology: Transcr iption-Mediated AmplificationThis assay detects E6/E7 viral messenger RNA (mRNA) from 14high-risk HPV types (16,18,31,33,35,39,45,51,52,56,58,59,66,68).Cervical sources are required for HPV testing.If a vaginal source from a patient who has had atotal hysterectomy with removal of cervix wassubmitted, please contact the testing laboratoryfor alternative testing options.For additional information, please refer tohttp://education.Pose/faq/LWH897g6(This link if provided for information/educational purposes only.)THIS TEST WAS PERFORMED AT:[email or web address] [place] [phone] KONG MD HPV mRNA E6/E7 TNP [facility] HPV 16 RNA GAP [facility] HPV 18/45 RNA TNP [facility] 12/05/2022 11:5 1 AM EDT 12/08/2022 8:50 AM EDT us Diane Dwyer MD LAB CYTOLOGY ORDERABL ES Final Result [facility] [address] [place] [phone] * Pap Smear (12/05/2022 11:51 AM EDT) 12/05/2022 11:5 1 AM EDT 12/08/2022 8:50 AM EDT Narrative [facility] - 12/12/2022 11:16 AM EDT ----- ------- Name: Juanita Borden ?Age/Sex: 52/F ? : 1970 Unit#: [id number] ?? Attend Dr: Diane Duff MD ?Re12/05/22 ?Status: DEP REF ? Location: HO.LNP ?Disch: ? ----- ------- SPEC : [id number] ?RECD: 12/08/22 ? STATUS: ??SOUT ? REQ NUM: [id number] ? HEMANTH: 12/05/22 ? SUBM DR: Diane Duff MD ? ENTERED: ??12/08/22 ?SP TYPE: Pap Smr ?OTHR : ? ORDERED: ??Pap Smear ? Interpretation ?? Satisfactory for evaluation. ?? No endocervical cells seen. ?? Negative for intraepithelial lesion or malignancy. ?HPV mRNA E6/E7: ?NOT DETECTED ? This assay detects E6/E7 viral messenger RNA (mRNA) from 14 high-risk HPV types (16, 18, ?? 31, 33, 35, 39, 45, 51, 52, 56, 58, 59, 66, 68) ?? HPV testing performed by [employer] [facility], [place], [place]. ??See reference laboratory ?? pion of the EMR for entire report. ?Clinical Information LMP: Unknown date Previous PAP test: Unknown date/findings ? Material Received ?? ThinPrep-Vaginal/Cervical ----- ------- Signed (signature on file) BECKI Clark ([facility]) 12/12/22 1116 ? ----- ------- ? END OF REPORT ? us Diane Dwyer MD LAB CYTOLOGY ORDERABL ES Final Result [facility] [address] [place] [address] [phone] * LIPID PANEL, STANDARD (12/05/2020 3:13 PM EDT) Chol/HDLC Ratio 2.5 <5.0 (calc) [facility] Cholesterol, Total 193 <200 mg/dL [facility] HDL Cholesterol 76 > OR = 50 mg/dL [facility] LDL Cholesterol 95 mg/dL (calc) [facility] Comment: Reference range: <100 ?? [...] ?? Jorge BRO et al. STACEY. 2013;310(19): 4806-9036 ?? (http://education.QuestDiagnostics.com/faq/AYH205) Non-HDL Cholesterol 117 <130 mg/dL (calc) [facility] Comment: For patients with diabetes plus 1 major ASCVD risk ?? factor, treating to a non-HDL-C goal of <100 mg/dL ?? (LDL-C of <70 mg/dL) is considered a therapeutic ?? option. Triglycerides 122 <150 mg/dL [facility] 12/05/2020 3:13 PM EDT Landy Downs NP LAB BLOOD ORDERABLES Final Resu lt [facility] [address] * Colonoscopy (05/31/2020) Colonoscopy Normal Normal Narrative Roxann Tariq - 05/31/2020 Recommended 3 year follow up Historical Provider MD HEALTH MAINTENANCE Final Result from Last 3 Months or Most Recently Relevant to Health Maintenance Insurance [facility] < [address] [place] [id number] Care Teams Seismology Technical Officer Relationship Specialty Start Date End Date Diane Duff MD [address] [place] [phone] PCP - General Family Medicine 02/03/18
--- OUTSIDE RECORDS SUMMARY | 2024-07-19 13:32 | XMS_ITS | Encounter Summary ---
Author Organization [employer] Address 75 [facility] 7t [place] [address] Care Team Providers Care Cleaner And Presser Name Role Phone Diane Duff MD Primary Care Provide r Reason for Visit * Reason Onset Date Comments Durable Medical Equipment 01/14/2023 Nebuli zer Encounter Details Date Type Department Care Team ([facility] st Contact Info) Description 01/14/2023 Telephone [facility] MEDICINE [address] [place] [address] Diane Duff MD [address] [place], [place] [phone] Durable Medical Equipment (Nebulizer) Social History Tobacco [...] Description 08/24/2024 3:30 PM EDT Office Visit [facility] OPTOMETRY [address] [place] [address] Arnaldo, Tami, OD [address] [place] [address] 09/06/2024 10:00 AM EDT Clinical Support [facility] MEDICINE [address] [place] [address] Freya Lr, TROY documented as of this encounter Visit Diagnoses Not on filedocumented in this encounter Additional Health Concerns Assessment Noted Time PHQ-9 Depression Total Score: 7 08/07/19 23 4:00 PM EDT documented as of this encounter Care Teams Cleaner And Presser Relationship Specialty Start Date End Date Diane Duff MD [address] [place] [address] PCP - General Family Medicine 02/03/18 documented as of this encounter
--- OUTSIDE RECORDS SUMMARY | 2024-07-19 13:32 | XMS_ITS | Encounter Summary ---
Author Organization [employer] Address 75 [facility] 7t [place] [address] Care Team Providers Care Senior Mechanical Development Engineer Name Role Phone Diane Duff MD Primary Care Provide r Reason for Visit * Reason Comments Med Refill Encounter Details Date Type Department Care Team ([facility] st Contact Info) Description 04/07/2024 Refill [facility] MEDICINE [address] [place], [place] [phone] Diane Duff MD [address] [place], [place] [phone] Primary hypertension Social History Tobacco Use Types [...] Description 08/24/2024 3:30 PM EDT Office Visit [facility] OPTOMETRY [address] [place] [address] Arnaldo, Tami, OD [address] [place] [address] 09/06/2024 10:00 AM EDT Clinical Support [facility] MEDICINE [address] [place], [place] [phone] Freya Lr, TROY documented as of this encounter Visit Diagnoses Diagnosis Primary hypertension Unspecified essential hypertension documented in this encounter Additional Health Concerns Assessment Noted Time PHQ-9 Depression Total Score: 9 01/14/20 24 4:07 PM EST documented as of this encounter Care Teams Senior Mechanical Development Engineer Relationship Specialty Start Date End Date Diane Duff MD [address] [place] [address] PCP - General Family Medicine 02/03/18 documented as of this encounter
--- OUTSIDE RECORDS SUMMARY | 2024-07-19 13:32 | XMS_ITS | Encounter Summary ---
Author Organization [employer] Address [address] [facility] 7t [place] [address] Care Team Providers Care Test Development Engineer Name Role Phone Diane Duff MD Primary Care Provide r Reason for Visit * Reason Comments Med Refill Encounter Details Date Type Department Care Team ([facility] st Contact Info) Description 10/29/2023 Refill [facility] [address] [place], [place] [phone] Diane Duff MD 230 [place], [place] [phone] Anxiety state Social History Tobacco Use Types [...] Description 08/24/2024 3:30 PM EDT Office Visit [facility] [address] [place] [address] Arnaldo, Tami, OD 230 [place] [address] 09/06/2024 10:00 AM EDT Clinical Support [facility] [address] [place] [address] Freya Lr RN documented as of this encounter Visit Diagnoses Diagnosis Anxiety state Anxiety state, unspecified documented in this encounter Additional Health Concerns Assessment Noted Time PHQ-9 Depression Total Score: 7 08/07/19 23 4:00 PM EDT documented as of this encounter Care Teams Test Development Engineer Relationship Specialty Start Date End Date Diane Duff MD 230 [place] [address] PCP - General Family Medicine 02/03/18 documented as of this encounter
--- OUTSIDE RECORDS SUMMARY | 2024-07-19 13:32 | XMS_ITS | Encounter Summary ---
Author Organization [employer] Address [address] [facility] 7t [place] [address] Care Team Providers Care Semiconductor Package Symbol Stamper Name Role Phone Diane Duff MD Primary Care Provide r Reason for Visit * Reason Comments Med Refill Encounter Details Date Type Department Care Team (Late Contact Info) Description 09/11/2022 Refill [facility] [address] [place] [address] Diane Duff MD 230 [place], [place] [phone] Social History Tobacco Use Types Packs/Day Years [...] Description 08/24/2024 3:30 PM EDT Office Visit [facility] [address] [place], [place] [phone] Tami Mcintosh, OD 230 [place] [address] 09/06/2024 10:00 AM EDT Clinical Support [facility] [address] [place], [place] [phone] Freya Lr, RN documented as of this encounter Visit Diagnoses Not on filedocumented in this encounter Additional Health Concerns Assessment Noted Time PHQ-9 Depression Total Score: 7 08/07/19 23 4:00 PM EDT documented as of this encounter Care Teams Semiconductor Package Symbol Stamper Relationship Specialty Start Date End Date Diane Duff MD 230 [facility] [place] [address] PCP - General Family Medicine 02/03/18 documented as of this encounter
--- OUTSIDE RECORDS SUMMARY | 2024-07-19 13:32 | XMS_ITS | Encounter Summary ---
Author Organization [employer] Address [address] [facility] 7t [place] [address] Care Team Providers Care Machine Design Checker Name Role Phone Diane Duff MD Primary Care Provide r Reason for Visit * Reason Comments Med Change Request Encounter Details Date Type Department Care Team ([facility] Contact Info) Description 02/04/2023 Refill [facility] [address] [place], [place] [phone] Martha Avendano FNP Social History Tobacco Use [...] 3:30 PM EDT Office Visit [facility] [address] [place] [address] Tami Mcintosh, OD 230 [place] [address] 09/06/2024 10:00 AM EDT Clinical Support [facility] [address] [place] [address] Freya Lr, TROY documented as of this encounter Visit Diagnoses Not on filedocumented in this encounter Additional Health Concerns Assessment Noted Time PHQ-9 Depression Total Score: 7 08/07/19 23 4:00 PM EDT documented as of this encounter Care Teams Machine Design Checker Relationship Specialty Start Date End Date Diane Duff MD 230 [place] [address] PCP - General Family Medicine 02/03/18 documented as of this encounter
--- OUTSIDE RECORDS SUMMARY | 2024-07-19 13:32 | XMS_ITS | Encounter Summary ---
Author Organization [employer] Address [address] [facility] 7t [place] [address] Care Team Providers Care Single Pointed Operator Name Role Phone Diane Duff MD Primary Care Provide r Reason for Visit * Reason Comments Med Change Request Encounter Details Date Type Department Care Team ([facility] Contact Info) Description 03/02/2023 Refill [facility] [address] [place], [place] [phone] Martha Avendano FNP Social History Tobacco Use [...] Description 08/24/2024 3:30 PM EDT Office Visit [facility] [address] [place], [place] [phone] Tami Mcintosh, OD [address] [place] [address] 09/06/2024 10:00 AM EDT Clinical Support [facility] [address] [place] [address] Freya Lr RN documented as of this encounter Visit Diagnoses Not on filedocumented in this encounter Additional Health Concerns Assessment Noted Time PHQ-9 Depression Total Score: 7 08/07/19 23 4:00 PM EDT documented as of this encounter Care Teams Single Pointed Operator Relationship Specialty Start Date End Date Diane Duff MD 230 [place], [place] [phone] PCP - General Family Medicine 02/03/18 documented as of this encounter
--- OUTSIDE RECORDS SUMMARY | 2024-07-19 13:32 | XMS_ITS | Encounter Summary ---
Author Organization [employer] Address [address] [facility] 7t [place] [address] Care Team Providers Care Laborer Starch Factory Name Role Phone Diane Duff MD Primary Care Provide r Reason for Visit * Reason Comments Med Refill Encounter Details Date Type Department Care Team ([facility] st Contact Info) Description 08/14/2023 Refill [facility] [address] [place], [place] [phone] Diane Duff MD [address] [place], [place] [phone] Primary insomnia Social History Tobacco Use Types [...] 3:30 PM EDT Office Visit [facility] [address] [place] [address] Arnaldo, Tami, OD 230 [place] [address] 09/06/2024 10:00 AM EDT Clinical Support [facility] [address] [place] [address] Freya Lr RN documented as of this encounter Visit Diagnoses Diagnosis Primary insomnia Persistent disorder of initiating or maintaining sleep documented in this encounter Additional Health Concerns Assessment Noted Time PHQ-9 Depression Total Score: 7 08/07/19 23 4:00 PM EDT documented as of this encounter Care Teams Laborer Starch Factory Relationship Specialty Start Date End Date Diane Duff MD [address] [place] [address] PCP - General Family Medicine 02/03/18 documented as of this encounter
--- OUTSIDE RECORDS SUMMARY | 2024-07-19 13:32 | XMS_ITS | Clinical Summary ---
Author Organization [facility] Address [address] [place] [address] Care Team Providers Care Battery Filler Name Role Phone Diane Duff MD Primary Care Provide r Allergies No known active allergies Medications beta carotene 70159 units capsule Take 1 capsule by mouth [...] 05/24/2012 Depressive disorder 08/25/2011 Anxiety state 08/25/2011 Immunizations Immunization Administration Dates Next Due Influenza Split 12/22/2012,04/06/2012 [...] Care Team (Late st Contact Info) Description 08/08/2024 Orders Only [facility] [address] [place] [address] Esau Padilla MD [address] [facility] [address] [place] [phone] Chronic kidney disease, stage 4 (severe) (HCC); Persistent proteinuria; IgA nephropathy 08/15/2024 3:15 PM EDT Office Visit [facility] [address] [place] [address] Esau Padilla MD [address] [address] Health Maintenance Due Date Last Done Comments Breast Cancer Screening 1970 Hepatitis B Vaccine (1 of 3 - 19+ 3-dose series) 1989 Pneumococcal Vaccine: 50+ Ye ars (2 of 2 - PCV) 04/23/2013 04/23/2012 Colorectal Cancer Screening: Annual FOBT 2019 Colorectal Cancer Screening: Colonoscopy 2019 Colorectal Cancer Screening: Sigmoidoscopy 2019 Influenza Vaccine (Season Ended) 2024 12/20/2020, 12/16/2018, 01/12/2018, Additional history exists Pneumococcal Vaccine: Peds ( 0 to 5 Years) and At-Risk Patients (6 to 49 Years) Discontinued 04/23/2012 Insurance [facility] ([id number]) JOSE ROBERTO FERGUSON [phone] [facility] ([id number]) JOSE ROBERTO FERGUSON [phone] Care Teams Battery Filler Relationship Specialty Start Date End Date Diane Duff MD [address] [place] [phone] PCP - General Internal Medicine 06/15/20
== END 2024-07-19 13:24 | disposition home or self-care (01) ==
LOC: HO.HGI 12:26
PROVIDERS: PCP Internal Medicine; Visit Provider Nurse Practitioner Family
DX: Z01.818 Encounter for other preprocedural examination (principal); Z12.11 Encounter for screening for malignant neoplasm of colon; Z86.0101 Personal history of adenomatous and serrated colon polyps
CPT/HCPCS: 99024

== ENCOUNTER → 2024-07-19 12:25 | Outpatient (BNVA) | payer OTHER, SELFPAY | PROVIDERS: PCP Internal Medicine; Visit Provider Nurse Practitioner Family | DX: Z12.11 Encounter for screening for malignant neoplasm of colon (principal); D36.9 Benign neoplasm, unspecified site | CPT/HCPCS: 99212 ==

== ENCOUNTER 2024-08-10 11:28 | Outpatient (REF) | payer OTHER, SELFPAY ==
[2024-08-10 12:55] LABS: Anion Gap 13 (12-20); Blood Urea Nitrogen 37 mg/dL (9-16); Calcium 9.1 mg/dL (8.4-10.2); Carbon Dioxide 23 mmol/L (22-29); Chloride 114 mmol/L (96-108); Estimated Glomerular Filt Rate 26; Potassium 4.6 mmol/L (3.3-5.1); Sodium 145 mmol/L (135-145)
[2024-08-10 12:58] LABS: Total Protein Urine Random < 7 mg/dL (<12)
== END 2024-08-10 11:29 | disposition home or self-care (01) ==
LOC: HO.LAB 11:28
PROVIDERS: PCP Internal Medicine; Visit Provider Internal Medicine Nephrology
DX: N18.32 Chronic kidney disease, stage 3b (principal)
CPT/HCPCS: 36415; 80051; 82310; 82565; 82570; 84156; 84520

== ENCOUNTER 2024-09-20 14:38 | Outpatient (AMB) | payer OTHER, SELFPAY ==
--- NOTE | 2024-09-20 15:20 | A.OFFVIS_ITS ---
VS Expanded 09/20/24 15:27 BP 106/68 Blood Pressure Location Lt brachial Blood Pressure Position Sitting Pulse 75 Pulse Source Pulse Oximeter Temp 98 F Temperature Source Temporal Artery Scan Pulse Oximetry 98 Oxygen Delivery Method Room Air Height 5 ft Weight 158 lb BMI 30.9 Body Fat % 28.9 Body Fat Mass 45.6 Fat Free Mass 112.2 Visceral Fat Rating 7 Body Water % 50.4 Body Water Mass 79.6 Muscle Mass/Score 106.4 Basal Metabolic Rate/Score 1,493 Intake Visit Reasons: OV PO LSG 01/18/21 Apple Turner Name: Monse [id number] Allergies No Known Allergies Allergy (Verified 07/19/24 12:50) Medication List - Last Reconciled 09/20/24 by JOSE ROBERTO Sosa albuterol sulfate 0.63 mg inhalation Q4-6H PRN albuterol sulfate 90 mcg/actuation 2 puffs inhalation Q4-6H PRN bisacodyl (Dulcolax (bisacodyl)) 10 mg (2 x 5 mg) PO BEDTIME bisacodyl (Dulcolax (bisacodyl)) 20 mg (4 x 5 mg) PO ONCE 1 day cholecalciferol (vitamin D3) 50 mcg PO DAILY cyclobenzaprine 10 mg PO TID PRN diazepam (Valium) 10 mg PO TID PRN ferrous sulfate 325 mg PO DAILY fluticasone propion-salmeterol 250-50 mcg/dose (Wixela Inhub) ea inhalation fluticasone propionate 50 mcg/actuation 2 sprays intranasal DAILY gabapentin 300 mg PO TID hydrochlorothiazide 25 mg PO DAILY hydroxyzine HCl 25 mg PO BID PRN ipratropium-albuterol 20-100 mcg/actuation 1 puff inhalation QID ivermectin 1% appl topical lisinopril 2.5 mg PO DAILY loratadine 10 mg PO DAILY mepolizumab (Nucala) mg subcut montelukast 10 mg PO DAILY naloxone 4 mg/actuation 1 spray intranasal ONCE PRN ondansetron HCl (Zofran) 4 mg PO Q6H PRN oxybutynin chloride ER 10 mg PO DAILY 90 days pantoprazole 40 mg PO DAILY polyethylene glycol 3350 (Miralax) 238 grams PO ONCE tirzepatide (weight loss) (Zepbound) 15 mg subcut QWEEK tizanidine 2 mg PO TID PRN 30 days triamcinolone acetonide 0.1% 1 appl topical BID-TID vitamin A palmitate 10,000 units PO DAILY HPI Comments Details: This?is a?54?yo F who is s/p LSG 07/23/2017. Weight loss of 34lbs since last OV. No complaints of nausea, emesis, abdominal pain or reflux, or constipation. Remains interested in skin removal. Started on Zepbound by PCP. Tolerating well. Pt reports on max dose currently. Pt reports initial weight prior to surgery 295 lbs. Present meal plan includes: given at last visit Take 1 protein shake per day plus one bar. Can have one small meal of 2 eggs and one small meal of meat/veg I eat a little bit of meat and salads, I have less appetite - only eating food, 2 meals a day Exercise routine includes: has chronic conditions that make exercise difficult Pt reports problems of excess skin of abdomen. Develops skin irritation for which she uses a topical OTC cream. Excess skin is heavy and she has to wear a compressive waistband or fajita to hold excess skin in place. [facility] Medical History (Updated 07/19/24 @ 20:42 by Ana Laura Chin, [facility]-) Tubular adenoma Renal cyst Hematuria Allergic rhinitis Cough Family history of colon cancer in father Obesity Schwannoma of nerve of neck Carpal tunnel syndrome Arthritis Renal insufficiency COPD (chronic obstructive pulmonary disease) Asthma HTN (hypertension) Surgical History History of esophagogastroduodenoscopy (EGD) Hx of tubal ligation History of sleeve gastrectomy Family History Father No problems noted. Mother Diabetes Hypertension Son Colon cancer Brother No problems noted. Brother Diabetes Sister No problems noted. Social History Household Members: Spouse Alcohol intake: never Patient Tobacco Use Status: Never used Tobacco Current occupational status: disabled Assessment & Plan Assessment & Plan (1) History of sleeve gastrectomy: Comment: 07-23-[address] Bryant Code(s): Z90.3 - Acquired absence of stomach [part of] Category: Medical (2) Obesity: Code(s): E66.9 - Obesity, unspecified Category: Medical Plan Currently with 46% TBWL. I gave pt goal weight of 143-144lbs which would put her BMI around 28. Although this is higher than our usual requirements of BMI 27, pt has healthy BF% 28.9, high muscle mass. Can also refer to outside practice if she is unable to meet our requirements for skin removal surgery. RTC 2mo.
[2024-09-20 15:27] VITALS: BP 106/68; PULSE 75; TEMP 36.6; O2SAT 98; BMI 30.9
--- OUTSIDE RECORDS SUMMARY | 2024-09-20 15:58 | XMS_ITS | Clinical Summary ---
Author Organization [facility] Address [address] [place] [address] Phone Care Team Providers Care Plant Maintenance Mechanic Name Role Phone Diane Duff MD Primary Care Provide r Allergies No known active allergies Medications beta carotene 33183 units capsule Take 1 capsule by mouth 1 (one) time each day Active cholecalciferol (VITAMIN D-3) 50 MCG (2000 UT) capsule TOME 1 C PSULA POR V [...] 08/08/2022 Overview (05/20/2023): Last Assessment & Plan: Reviewed basic education regarding condition, as well importance of sun protection May consider laser tx if desired for [...] Encounters Date Type Department Care Team Description 08/15/2024 3:15 PM EDT Office Visit [facility] [address] [place] [address] Esau Padilla MD Chronic kidney disease, stage 4 (severe) (HCC) (Primary Dx); Renal osteodystrophy 08/10/2024 Orders Only [facility] [address] [phone] Guzman Tariq MD Stage 3b chronic kidney disease (HCC) (Primary Dx) 08/08/2024 Orders Only [facility] [address] [place] [address] Esau Padilla MD Chronic kidney disease, stage 4 (severe) (HCC); Persistent proteinuria; IgA nephropathy from Last 3 Months Immunizations Immunization Administration Dates Next Due Influenza [...] Sign Reading Time Taken Comments Blood Pressure 109/60 08/15/2024 3:00 PM EDT Pulse 71 02/08/2024 1:29 PM EST Temperature - - Respiratory Rate - - Oxygen Saturation 97% 02/08/2024 1:29 PM EST Inhaled Oxygen Concentration - - Weight 77.4 kg (170 lb 9.6 oz) 08/15/2024 3:00 P M EDT Height 154.9 cm (5' 1 ) 06/15/2020 11:14 AM EDT Body Mass Index 32.23 06/15/2020 11:14 AM EDT Plan of Treatment Upcoming Encounters Date Type Department Care Team (Late st Contact Info) Description 02/13/2025 3:30 PM EST Office Visit [facility] [address] [place] [address] Esau Padilla MD [address] [facility] [address] [place] [address] Health Maintenance Due Date Last Done Comments Breast Cancer Screening 1970 Hepatitis B Vaccine (1 of 3 - 19+ 3-dose series) 1989 Pneumococcal Vaccine: 50+ Ye ars (2 of 2 - PCV) 04/23/2013 04/23/2012 Colorectal Cancer Screening: Annual FOBT 2019 Colorectal Cancer Screening: Colonoscopy 2019 Colorectal Cancer Screening: Sigmoidoscopy 2019 Influenza Vaccine (#1) 2024 , 12/16/2018, 01/12/2018, Additional history exists Pneumococcal Vaccine: Peds ( 0 to 5 Years) and At-Risk Patients (6 to 49 Years) Discontinued 04/23/2012 Procedures Procedure Name Priority Date/Time Associated Diagnosis Comments PROTEIN / CREATININE RATIO, URINE Routine 08/10/2024 12:01 PM EDT Stage 3b chronic kidney disease (HCC) CREATININE, BLOOD Routine 08/10/2024 11: 38 AM EDT BUN Routine 08/10/2024 11:38 AM EDT ELECTROLYTE PANEL Routine 08/10/2024 11: 38 AM EDT CALCIUM Routine 08/10/2024 11:38 AM EDT Chronic kidney disease, stage 4 (severe) (HCC) Persistent proteinuria IgA nephropathy from Last 3 Months Results * Protein, Total, Random Urine w/Creatinine (Protein/Creat Ratio) (08/10/2024 12:01 PM EDT) Creatinine, Urine 123.20 mg/dL See order comments Protein Urine Random <7 <12 mg/dL See order comments Protein/Creatin ine Ratio, Urine TNP <0.2 See order comments Comment: Unable to calculate urine protein creatinine ratio due to low creatinine or protein result. Urine Urine specimen obtained by clean catch procedure / Unknown 08/10/2024 12:01 PM EDT 08/10/2024 12:01 PM EDT Esau Padilla MD LAB URINE ORDERABLES Final Re sult Performing Organization Address [facility] de Phone Number [place] See order comments [place] [address] * (ABNORMAL) Creatinine (08/10/2024 11:38 AM EDT) Creatinine Serum 2.02(H) 0.5 - 1.4 mg/dL See order comments eGFR (Calc) 26 See orde r comments Comment: Chronic Kidney Disease: Estimated GFR < 60 mL/min/1.73m2 Severe Kidney Disease: Estimated GFR < 15 mL/min/1.73m2 08/10/2024 11:3 8 AM EDT 08/10/2024 11:38 AM EDT Esau Padilla MD LAB BLOOD ORDERABLES Final Re sult Performing Organization Address [facility] Co de Phone Number [place] See order comments [place] [address] * (ABNORMAL) BUN (08/10/2024 11:38 AM EDT) BUN 37(H) 9 - 16 mg/dL See order comments 08/10/2024 11:3 8 AM EDT 08/10/2024 11:38 AM EDT Esau Padilla MD LAB BLOOD ORDERABLES Final Re sult Performing Organization Address [facility]/ZIP Co de Phone Number [place] See order comments [place] [address] * Calcium (08/10/2024 11:38 AM EDT) Calcium 9.1 8.4 - 10.2 mg/dL See order comments Blood specimen (specimen) Venous blood / Unknown 08/10/2024 11:38 AM EDT 08/10/2024 11:38 AM EDT Esau Padilla MD LAB BLOOD ORDERABLES Final Re sult Performing Organization Address City/[facility]/ZIP Co de Phone Number [place] See order comments [place] [address] * (ABNORMAL) Electrolyte panel (08/10/2024 11:38 AM EDT) Sodium 145 135 - 145 mmol/L See order comments Potassium 4.6 3.3 - 5.1 mmol/L See order comments Chloride 114(H) 96 - 108 mmol/L See order comments Bicarbonate (CO2) 23 22 - 29 mmol/L See order comments Anion Gap 13 12 - 20 See order comments 08/10/2024 11:3 8 AM EDT 08/10/2024 11:38 AM EDT Easu Padilla MD LAB BLOOD ORDERABLES Final Re sult Performing Organization Address [facility] Co de Phone Number [place] See order comments [place] [address] from Last 3 Months Insurance [facility] ([id number]) [facility] ([id number]) Care Teams Plant Maintenance Mechanic Relationship Specialty Start Date End Date Diane Duff MD [address] [place] [phone] PCP - General Internal Medicine 06/15/20
== END 2024-09-20 15:51 | disposition home or self-care (01) ==
LOC: HO.HBS 14:38
PROVIDERS: PCP Internal Medicine; Visit Provider Physician Assistant Surgical
DX: E66.9 Obesity, unspecified (principal); Z68.30 Body mass index [BMI] 30.0-30.9, adult; Z90.3 Acquired absence of stomach [part of]; Z98.84 Bariatric surgery status
CPT/HCPCS: 99213; G2211

== ENCOUNTER → 2024-09-20 14:38 | Outpatient (BNVA) | payer OTHER, SELFPAY | PROVIDERS: PCP Internal Medicine; Visit Provider Physician Assistant Surgical | DX: Z98.84 Bariatric surgery status (principal); Z90.3 Acquired absence of stomach [part of]; E66.9 Obesity, unspecified | CPT/HCPCS: 99212 ==

== ENCOUNTER 2024-10-04 14:18 | Outpatient (AMB) | payer OTHER, SELFPAY ==
--- NOTE | 2024-10-04 14:21 | A.OFFVIS_ITS ---
Vital Signs 10/04/24 14:31 Height 5 ft Weight 158 lb BMI 30.9 BP 96/58 L Blood Pressure Location Rt brachial Position Sitting Pulse 98 Pulse Source Pulse Oximeter Pulse Oximetry (%) 96 Oxygen Delivery Method Room Air Intake Visit Reasons: pre colo Intake Note: Est pt for mgmt of GERD + CIC. Pre colo appt. CC: C.O. GERD persistence despite current PPI therapy. Pt denies any additional sx or concerns at this time. Pt still waiting for surgical scheduling. Identification Officer Required: Yes Identification Officer Services: Identification Officer Present Identification Officer Name: Adria [id number] Information Interpreted: clinical only Accompanied by: Self / Same As Patient Allergies No Known Allergies Allergy (Verified 10/04/24 14:25) HPI HPI pre colo: Details: LAST VISIT Tubular adenoma Screen for colon cancer Plan Patient will continue taking pantoprazole as needed. Patient will start taking Dulcolax daily. Increase fluid intake and activity to promote better bowel motility. What to expect before during and after procedure discussed with patient. Stressed the importance of good bowel prep and clear liquid diet. Patient will follow-up with us after the procedure, sooner on as needed basis. She is agreeable to this plan and verbalizes understanding of instructions. She was given the opportunity to ask questions and all questions answered. ? Thank you for allowing me to participate in her care New polyethylene glycol 3350 (Miralax) As directed by gastroenterology department at [facility] 238 grams PO ONCE 238 grams 0RF Z12.11 bisacodyl (Dulcolax (bisacodyl)) 10 mg (2 x 5 mg) PO BEDTIME 180 tabs 4RF bisacodyl (Dulcolax (bisacodyl)) take 4 tabs at noon the day before your colonoscopy 20 mg (4 x 5 mg) PO ONCE 1 day 4 tabs 0RF Z12.11 TODAY'S VISIT Patient is here today for follow-up and to discuss going for colonoscopy. Patient still is having epigastric pain and acid reflux despite being on pantoprazole. Patient states that she is trying to avoid dietary triggers, however she continues to have symptoms. Denies dyspepsia, dysphagia or odynophagia. Patient reports that she is however moving her bowels better. Denies any melena, hematochezia, unintentional weight loss or ribbon like stools. Currently she is taking Dulcolax as needed. Patient denies any issues with anesthesia in the past. Family history of CRC. No issues with anesthesia in the past. No history of sleep apnea. Not on any anticoagulation medication. [facility] Medical History (Updated 10/05/24 @ 20:57 by Ana Laura Chin [facility]) GERD (gastroesophageal reflux disease) Tubular adenoma Renal cyst Hematuria Allergic rhinitis Cough Family history of colon cancer in father Obesity Schwannoma of nerve of neck Carpal tunnel syndrome Arthritis Renal insufficiency COPD (chronic obstructive pulmonary disease) Asthma HTN (hypertension) Surgical History History of esophagogastroduodenoscopy (EGD) Hx of tubal ligation History of sleeve gastrectomy Family History Father No problems noted. Mother Diabetes Hypertension Son Colon cancer Brother No problems noted. Brother Diabetes Sister No problems noted. Social History Household Members: Spouse Alcohol intake: never Patient Tobacco Use Status: Never used Tobacco Current occupational status: disabled Physical Exam Vital Signs: Last Vital Signs Pulse 98 10/04/24 14:31 BP 96/58 L 10/04/24 14:31 Pulse Ox 96 10/04/24 14:31 Oxygen Delivery Method Room Air 10/04/24 14:31 BMI result Body Mass Index 30.9 Assessment & Plan Assessment & Plan (1) Encounter for screening colonoscopy: Comment: screening colonoscopy Code(s): Z12.11 - Encounter for screening for malignant neoplasm of colon Category: Medical (2) Tubular adenoma: Code(s): D36.9 - Benign neoplasm, unspecified site Category: Medical (3) GERD (gastroesophageal reflux disease): Code(s): K21.9 - Gastro-esophageal reflux disease without esophagitis Category: Medical Qualifiers: Esophagitis presence: esophagitis presence not specified Qualified Code(s): K21.9 - Gastro-esophageal reflux disease without esophagitis (4) Encounter for screening for malignant neoplasm of colon: Code(s): Z12.11 - Encounter for screening for malignant neoplasm of colon (5) Colon polyp: Code(s): K63.5 - Polyp of colon Category: Medical Qualifiers: Colon polyp type: adenomatous Plan Patient will stop pantoprazole and will start taking Nexium. Avoid dietary triggers in late night snacking. Staying upright for minimum 3 hours after meals discussed with patient. Patient will be sent for upper endoscopy. Message sent to surgical schedulers and bucket turner to at the procedure. What to expect before during and after colonoscopy discussed with patient. Stressed the importance of good bowel prep and clear liquid diet day before procedure. I will see patient after the procedure, sooner on as needed basis. She is agreeable to this plan and verbalizes understanding of instructions. She was given the opportunity to ask questions and all questions answered. Thank you for allowing me to participate in her care Medications: New esomeprazole magnesium (Nexium) 40 mg PO DAILY 30 caps 3RF K21.9 - Gastro- esophageal reflux disease without esophagitis Refilled 2 bisacodyl (Dulcolax (bisacodyl)) 10 mg (2 x 5 mg) PO BEDTIME 180 tabs 4RF Coding Level of Care Code Est Pt Level 4 (99239) Complex EM visit Add On G2211 Diagnoses Encounter for screening colonoscopy Z12.11 Tubular adenoma D36.9 Gastroesophageal reflux disease, unspecified whether esophagitis present K21.9 Esophagitis presence: esophagitis presence not specified Encounter for screening for malignant neoplasm of colon Z12.11 Colon polyp K63.5 Colon polyp type: adenomatous Time Spent (min) 35 Comment 25 minutes spent with patient and additional 10 minutes spent reviewing her records
[2024-10-04 14:31] VITALS: BP 96/58; PULSE 98; O2SAT 96; BMI 30.9
--- OUTSIDE RECORDS SUMMARY | 2024-10-04 14:59 | XMS_ITS | Clinical Summary ---
Author Organization [facility] Address [address] [place] [address] Phone Care Team Providers Care Sexual Assault Response Coordinator Name Role Phone Diane Duff MD Primary Care Provide r Allergies No known active allergies Medications beta carotene 27699 units capsule Take 1 capsule by mouth [...] Visit [facility] [address] [place] [address] Esau Padilla MD Chronic kidney disease, stage 4 (severe) (HCC) (Primary Dx); Renal osteodystrophy 08/10/2024 Orders Only [facility] [address] [phone] Guzman Tariq MD Stage 3b chronic kidney disease (HCC) (Primary Dx) 08/08/2024 Orders Only [facility] [address] [place] [address] Esau Padilla MD Chronic kidney disease, stage [...] Visit [facility] [address] [place] [address] Esau Padilla MD [address] [facility] [facility] [address] [place] [address] Health Maintenance Due Date Last [...] ORDERABLES Final Re sult Performing Organization Address [facility] de Phone Number [place] See order comments [place] [address] * (ABNORMAL) Creatinine (08/10/2024 11:38 AM EDT) Creatinine Serum 2.02(H) 0.5 - 1.4 mg/dL See order comments eGFR (Calc) 26 See orde r comments Comment: Chronic Kidney Disease: Estimated GFR < 60 mL/min/1.73m2 Severe Kidney Disease: Estimated GFR < 15 mL/min/1.73m2 08/10/2024 11:3 8 AM EDT 08/10/2024 11:38 AM EDT Esau Padilla MD LAB BLOOD ORDERABLES Final Re sult Performing Organization Address [facility] Co de Phone Number [place] See order comments [place] [address] * (ABNORMAL) BUN (08/10/2024 11:38 AM EDT) BUN 37(H) 9 - 16 mg/dL See order comments 08/10/2024 11:3 8 AM EDT 08/10/2024 11:38 AM EDT Esau Padilla MD LAB BLOOD ORDERABLES Final Re sult Performing Organization Address [facility]/ZIP Co de Phone Number [place] See order comments [place] [address] * Calcium (08/10/2024 11:38 AM EDT) Calcium 9.1 8.4 - 10.2 mg/dL See order comments Blood specimen (specimen) Venous blood / Unknown 08/10/2024 11:38 AM EDT 08/10/2024 11:38 AM EDT Esau Padilla MD LAB BLOOD ORDERABLES Final Re sult Performing Organization Address City/[facility]/ZIP Co de Phone Number [place] See order comments [place] [address] * (ABNORMAL) Electrolyte panel (08/10/2024 11:38 AM [...] ORDERABLES Final Re sult Performing Organization Address [facility] Co de Phone Number [place] See order comments [place] [address] from Last 3 Months Insurance [facility] ([id number]) [facility] ([id number]) Care Teams Sexual Assault Response Coordinator Relationship Specialty Start Date End Date Diane Duff MD [address] [place] [phone] PCP - General Internal Medicine 06/15/20
--- OUTSIDE RECORDS SUMMARY | 2024-10-04 14:59 | XMS_ITS | Encounter Summary ---
Author Organization [employer] Address [address] [facility] [address] [place] [address] Care Team Providers Care Engine Repairer Name Role Phone Diane Duff MD Primary Care Provide r Reason for Visit * Reason Comments Med Change Request Encounter Details Date Type Department Care Team ([facility] Contact Info) Description 03/02/2023 Refill [facility] [address] [place] [address] Martha Avendano FNP Social History Tobacco Use [...] Care Team (Late st Contact Info) Description 12/07/2024 11:30 AM EDT Clinical Support [facility] MEDICINE [address] [place] [address] Freya Lr, RN 02/23/2025 1:00 PM EST Office Visit [facility] OPTOMETRY [address] [place] [address] Tami Mcintosh, OD [address] [place] [address] documented as of this encounter Visit Diagnoses Not on filedocumented in this encounter Additional Health Concerns Assessment Noted Time PHQ-9 Depression Total Score: 7 08/07/19 23 4:00 PM EDT documented as of this encounter Care Teams Engine Repairer Relationship Specialty Start Date End Date Diane Duff MD [address] [place] [address] PCP - General Family Medicine 02/03/18 documented as of this encounter
== END 2024-10-04 15:01 | disposition home or self-care (01) ==
LOC: HO.HGI 14:19
PROVIDERS: PCP Internal Medicine; Visit Provider Nurse Practitioner Family
DX: Z12.11 Encounter for screening for malignant neoplasm of colon (principal); D36.9 Benign neoplasm, unspecified site; K21.9 Gastro-esophageal reflux disease without esophagitis; K63.5 Polyp of colon
CPT/HCPCS: 99024

== ENCOUNTER → 2024-10-04 14:18 | Outpatient (BNVA) | payer OTHER, SELFPAY | PROVIDERS: PCP Internal Medicine; Visit Provider Nurse Practitioner Family | DX: Z01.818 Encounter for other preprocedural examination (principal); K21.9 Gastro-esophageal reflux disease without esophagitis; K63.5 Polyp of colon; D36.9 Benign neoplasm, unspecified site | CPT/HCPCS: 99212 ==

== ENCOUNTER 2025-01-20 15:13 | Outpatient (REF) | payer OTHER, SELFPAY ==
[2025-01-20 15:29] LABS: MANUAL DIFF FLAG NO
[2025-01-20 16:20] LABS: Hematocrit 36.6 % (37.0-47.0); Hemoglobin 11.1 g/dl (12.0-16.0); Imm Gran Abs Auto 0.02 X10*3/uL (0.00-0.03); Imm Gran Pct Auto 0.3 % (0.0-0.4); Lymphocytes Absolute Auto 1.5 X10*3/uL (1.2-4.9); Mean Corpuscular HGB Conc 30.3 g/dl (31.0-35.0); Mean Corpuscular Hemoglobin 26.6 pg (27.0-33.0); Mean Corpuscular Volume 87.8 fL (80.0-98.0); NRBC Abs Auto 0.000 X10*3/uL (0.0-0.012); NRBC Pct Auto 0.0 /100WBC (0.0-0.2); Platelet Count 215 X10*3/uL (160-400); Red Blood Count 4.17 X10*6/uL (4.20-5.50); White Blood Count 5.8 X10*3/uL (4.8-10.8)
[2025-01-20 16:46] LABS: Alanine Aminotransferase 11 U/L (0-31); Aspartate Amino Transferase 22 U/L (5-31); Estimated Glomerular Filt Rate 27
--- OUTSIDE RECORDS SUMMARY | 2025-01-20 23:55 | XMS_ITS | Clinical Summary ---
Author Organization [facility] Address [address] [place] [address] Phone Care Team Providers Care Technology Director Name Role Phone Diane Duff MD Primary Care Provide r Allergies No known active allergies Medications beta carotene 23465 units capsule Take 1 capsule by mouth [...] of breast 02/03/2022 Asthma 10/01/2021 Binge eating disorder, unspecified 10/01/2021 Radiculopathy due to cervical spondylosis 2021 [...] Visit [facility] [address] [place] [address] [place] [phone] Esau Padilla MD [address] [facility] [address] [place] [address] Health Maintenance Due Date Last [...] (6 to 49 Years) Discontinued 04/23/[address] [place] [address] ([id number]) [facility] ([id number]) Care Teams Technology Director Relationship Specialty Start Date End Date Diane Duff MD [address] [place] [phone] PCP - General Internal Medicine 06/15/20
== END 2025-01-20 15:14 | disposition home or self-care (01) ==
LOC: HO.LAB 15:13
PROVIDERS: PCP Internal Medicine; Visit Provider Internal Medicine Rheumatology
DX: R76.9 Abnormal immunological finding in serum, unspecified (principal); M25.50 Pain in unspecified joint; M19.90 Unspecified osteoarthritis, unspecified site
CPT/HCPCS: 36415; 82550; 82565; 84450; 84460; 85025; 85652; 86140; 86160; 86225

== ENCOUNTER 2025-02-09 13:07 | Outpatient (REF) | payer OTHER, SELFPAY ==
[2025-02-09 13:26] LABS: MANUAL DIFF FLAG NO
[2025-02-09 13:51] LABS: Hematocrit 34.0 % (37.0-47.0); Hemoglobin 10.3 g/dl (12.0-16.0); Imm Gran Abs Auto 0.02 X10*3/uL (0.00-0.03); Imm Gran Pct Auto 0.4 % (0.0-0.4); Lymphocytes Absolute Auto 1.5 X10*3/uL (1.2-4.9); Mean Corpuscular HGB Conc 30.3 g/dl (31.0-35.0); Mean Corpuscular Hemoglobin 26.8 pg (27.0-33.0); Mean Corpuscular Volume 88.5 fL (80.0-98.0); NRBC Abs Auto 0.000 X10*3/uL (0.0-0.012); NRBC Pct Auto 0.0 /100WBC (0.0-0.2); Platelet Count 194 X10*3/uL (160-400); Red Blood Count 3.84 X10*6/uL (4.20-5.50); White Blood Count 5.5 X10*3/uL (4.8-10.8)
[2025-02-09 14:05] LABS: Appearance Urine Clear; Glucose Urine UA Negative (Negative); PH 5.0 (5.0-9.0); Specific Gravity - Urine 1.015 (1.005-1.025); UMIC TRIGGER UA YES
[2025-02-09 14:31] LABS: Microalbum/Creatinine Ratio Ur 15.9 ug/mg cr (<30); Protein/Creatinine Ratio, Ur 0.05 (<0.2); Total Protein Urine Random 9 mg/dL (<12)
[2025-02-09 14:51] LABS: Parathyroid Hormone Intact 95.2 pg/mL (8.7-77.1)
[2025-02-09 15:05] LABS: Albumin Level 4.3 g/dL (3.5-5.0); Anion Gap 9 (12-20); Blood Urea Nitrogen 27 mg/dL (9-16); Calcium 9.3 mg/dL (8.4-10.2); Carbon Dioxide 25 mmol/L (22-29); Chloride 115 mmol/L (96-108); Magnesium 1.9 mg/dL (1.6-2.6); Potassium 4.5 mmol/L (3.3-5.1); Sodium 144 mmol/L (135-145)
== END 2025-02-09 13:08 | disposition home or self-care (01) ==
LOC: HO.LAB 13:07
PROVIDERS: Visit Provider Internal Medicine Nephrology
DX: N18.4 Chronic kidney disease, stage 4 (severe) (principal); N25.0 Renal osteodystrophy
CPT/HCPCS: 36415; 80069; 81001; 82043; 82306; 82570; 83735; 83970; 84156; 85025